=== PATIENT | male | born 1980 | race Caucasian/White ===

== ENCOUNTER 2017-03-11 16:45 | Inpatient (IN) ==
--- NOTE | 2017-03-11 17:16 | Emergency Department Report ---
Weakness HPI - General Chief complaint: Weakness Stated complaint: weakness,not eating/drinking Time Seen by Provider: 03/11/17 16:46 Source: patient, RN notes reviewed Mode of arrival: wheelchair Limitations: no limitations - History of Present Illness HPI Narrative: 36yo man presents to the ER for evaluation of 'weakness'. Pt states that he got 'the crud' two weeks ago. Since then, he has had trouble recovering. He had an appointment with his PCM today, but "I didn't think I could make it". Pt fell on the steps of his home and brother and MOP helped pt into his truck. Pt then drove himself to the ER. Pt c/o KURTZ, nausea, congestion, rhinorrhea, fatigue, loose stools, etc for the last 2 weeks. He has not sought treatment for this, and he has not taken any medications to treat his sx. MD Complaint: generalized weakness Onset (ago): week(s) (2) Duration: constant Location: generalized Migration: none Severity: severe Relieving factors: none Exacerbating factors: movement, exertion Context: recent illness Associated symptoms: diaphoresis, fever/chills, headaches, loss of appetite, nausea/vomiting, myalgias, rash, shortness of breath - Related Data Home Medications Medication Instructions Recorded Confirmed Prilosec (Omeprazole) 20 mg 20 mg PO DAILY cap 11/14/16 03/11/17 capsule,delayed release Aspirin Chewable [ASA] 81 mg PO BID 03/11/17 03/11/17 Lisinopril [Prinivil] 20 mg PO DAILY 03/11/17 03/11/17 Losartan [Cozaar] 50 mg PO DAILY 03/11/17 03/11/17 Previous Rx's Medication Instructions Recorded Klor-Con M20 (potassium chloride 20 meq PO BID #60 tab 12/17/16 ER) 20 mEq tablet,(part/cryst) Lasix (Furosemide) 80 mg tablet 80 mg PO QAM #30 tab 12/17/16 Maxzide-25mg (triamterene 37.5 0.5 tab PO DAILY #30 tab 12/17/16 mg-hydrochlorothiazide 25 mg) tablet levothyroxine 50 mcg tablet 50 mcg PO DAILY #30 tab 02/14/17 Allergies Allergy/AdvReac Type Severity Reaction Status Date / Time Penicillins Allergy Severe Rash Verified 03/11/17 18:19 silver sulfadiazine Allergy Severe Blister Verified 03/11/17 18:19 vancomycin Allergy Intermediate RASH Verified 03/11/17 18:19 Sulfa (Sulfonamide Allergy Mild RASH Verified 03/11/17 18:19 Antibiotics) Review of Systems All systems: reviewed and negative except as stated Constitutional: Reports: as per HPI, weakness. Denies: fever, chills, weight change, night sweats Cardiovascular: Reports: as per HPI, dyspnea on exertion. Denies: chest pain, palpitations, orthopnea, edema, syncope, paroxysmal nocturnal dyspnea Respiratory: Reports: as per HPI, cough, dyspnea. Denies: wheezes, hemoptysis, stridor Gastrointestinal: Reports: as per HPI, abdominal pain, nausea, diarrhea. Denies : vomiting, constipation, hematemesis, melena, hematochezia [facility] Patient Stated Medical History Other HEENT Yes: GLASSES Hypertension Yes Other Behavioral Health Yes: [facility] Medical History (Last Updated 11/12/16 @ 09:35 by RON Fierro) Hx of bronchitis (Chronic Medical) 1996 Medical History Updates: HTN (hypertension). Obesity. Psoriasis. Edema extremities. Allergic rhinitis. GERD (gastroesophageal reflux disease). Candidiasis Surgical History: Esophagus widened - 1980 Family History: Family History (Last Updated 11/12/16 @ 09:37 by RON Fierro) Father Obesity Mother No known health problems - Social History Smoking status: Current every day smoker Physical Exam - Limitations Limitations: no limitations - General General appearance: alert, in no apparent distress, obese (Morbid) - Head Head exam: atraumatic, normocephalic, normal inspection - Eye Eye exam: Present: normal appearance, PERRL, EOMI. Absent: scleral icterus - ENT ENT exam: Present: normal exam, normal oropharynx, mucous membranes moist, normal external ear exam - Neck Neck exam: Present: normal inspection, full ROM, trachea midline. Absent: tenderness, lymphadenopathy - Chest Chest inspection: Present: normal inspection, symmetric chest wall rise. Absent : tenderness, rash - Respiratory Respiratory exam: Present: normal lung sounds bilaterally. Absent: respiratory distress, wheezes, prolonged expiratory phase, crackles - Cardiovascular Cardiovascular exam: Present: regular rate, normal rhythm, normal heart sounds, +S1, +S2. Absent: systolic murmur, diastolic murmur, +S3, +S4 - Abdominal Exam Abdominal exam: Present: soft, normal bowel sounds. Absent: distention, tenderness, guarding, rebound, psoas sign, obturator sign, heel tap sign, Kahn 's sign, Rovsing's sign, tenderness at McBurney's Point, hernia - Extremities Exam Extremities exam: Present: normal inspection, full ROM, normal capillary refill. Absent: tenderness, pedal edema, joint swelling, calf tenderness - Skin Skin exam: Present: warm, dry, intact, rash (Psoriasis) - Neurological Exam Neurological exam: Present: alert, oriented X3, CN II-XII intact, reflexes normal. Absent: normal gait, motor sensory deficit - Psychiatric Psychiatric exam: Present: flat affect Course - Consultations Consultation #1: Dr. Rodarte: Order ABG and mag. Pt can go to the floor. Have NRS call when ABG and mag are resulted. Will give orders at that time. Cont fluids! Vital Signs Temperature 97.8 F 03/11/17 16:50 Pulse Rate 81 03/11/17 16:50 Respiratory Rate 20 03/11/17 16:50 Blood Pressure 133/83 03/11/17 16:50 Pulse Oximetry 95 03/11/17 16:50 Temperature 97.8 F 03/11/17 16:50 Pulse Rate 81 03/11/17 18:27 Respiratory Rate 20 03/11/17 16:50 Blood Pressure 133/83 03/11/17 16:50 Pulse Oximetry 95 03/11/17 16:50 Weakness - Differential Diagnosis Differential diagnosis: Likely: acute myocardial infarction, anemia, hypoglycemia, hypothyroidism, rhabdomyolysis, sepsis, dehydration - Medical Records Attestation: I reviewed the patient's medical records. - Lab Data Attestation: I reviewed the patient's lab results. Result diagrams: 03/11/17 17:27 03/11/17 17:27 Lab Results 03/11/17 03/11/17 03/11/17 Range/Units 17:27 17:27 17:27 WBC 9.6 (4.5-11.0) T/MM3 RBC 4.96 (4.50-5.90) M/MM3 Hgb 15.0 (13.5-17.5) GM/DL Hct 44.6 (41-53) % MCV 89.9 (80-100) UM3 MCH 30.2 (26-34) UUG MCHC 33.6 (31-37) GM/DL RDW Std Deviation 40.8 (36.9-50.2) FL Plt Count 197 (130-400) T/MM3 MPV 12.7 H (9.4-12.4) UM3 Immature Gran % (Auto) 0.9 H (0.0-0.5) % Neut % (Auto) 73.2 H (33-66) % Lymph % (Auto) 15.0 L (23-45) % [place] % (Auto) 8.7 (0-9.0) % Eos % (Auto) 1.6 (0-4) % Baso % (Auto) 0.6 (0-2) % Neut # (Auto) 7.1 (1.8-7.7) T/MM3 Lymph # (Auto) 1.5 (1-4.8) T/MM3 [place] # (Auto) 0.8 (0-0.8) T/MM3 Eos # (Auto) 0.2 (0-0.5) T/MM3 Baso # (Auto) 0.1 (0-0.2) T/MM3 Abs Immat Gran (auto) 0.09 H (0.00-0.03) T/MM3 D-Dimer 202 (0-230) NG/ML Turbidity < 20 (0-20) Sodium 125 L (134-144) MEQ/L Potassium 4.3 (3.6-5) MEQ/L Chloride 85 L (98-107) MEQ/L Carbon Dioxide 27 (22-30) MEQ/L Anion Gap 13 (5-15) MEQ/L BUN 24.0 H (9-20) MG/DL Creatinine 1.1 (0.8-1.5) MG/DL GFR Calculation 76 BUN/Creatinine Ratio 22 (6-26) RATIO Glucose 785 H* (75-110) MG/DL Calculated Osmolality 284 H (261-280) MOSM/KG Calcium 9.5 (8.4-10.2) MG/DL Total Bilirubin 1.40 H (0.20-1.30) MG/DL Icterus Index < 2 (0-7) AST 29 (17-59) U/L ALT 58 (21-72) U/L Alkaline Phosphatase 135 H (38-126) U/L Creatine Kinase 106 (55-170) U/L Troponin I 0.015 (0-0.12) ng/ml B-Natriuretic Peptide 165 (0-175) pg/mL Total Protein 7.7 (6.3-8.2) G/DL Albumin 4.1 (3.5-5.0) G/DL Globulin 3.6 (2.4-3.6) G/DL Albumin/Globulin Ratio 1.1 (1.1-2.2) RATIO Plasma Lactate 2.4 H (0.6-2.2) MMOL/L Specimen Hemolysis < 15 (0-25) - Radiology Data Attestation: I reviewed the patient's radiology results. - EKG Data EKG #1 EKG attestation: Yes: I reviewed and interpreted this EKG. EKG shows normal: sinus rhythm, axis, intervals, QRS complexes, ST-T waves Rate: normal Voltage: decreased voltage throughout Disposition Clinical Impression: Hyperglycemia Disposition: 02 To [facility] Print Language: Polish Condition: Improved Prescriptions: No Action Losartan [Cozaar] 50 mg PO DAILY Aspirin Chewable [ASA] 81 mg PO BID Lisinopril [Prinivil] 20 mg PO DAILY Prilosec (Omeprazole) 20 mg capsule,delayed release 20 mg PO DAILY cap Maxzide-25mg (triamterene 37.5 mg-hydrochlorothiazide 25 mg) tablet 0.5 tab PO DAILY #30 tab Klor-Con M20 (potassium chloride ER) 20 mEq tablet,(part/cryst) 20 meq PO BID #60 tab Lasix (Furosemide) 80 mg tablet 80 mg PO QAM #30 tab levothyroxine 50 mcg tablet 50 mcg PO DAILY #30 tab Time of Disposition: 18:43 - Seen By: physician
[2017-03-11] MEDS ORDERED: NS 1,000 ML IV ONE (17:50)
--- OUTSIDE RECORDS SUMMARY | 2017-03-11 18:04 | External Medical Summary | Referral Summary ---
:1980 Author Organization [facility] Address [address] [place] [address] [place] [id number] Encounter [facility] [id number] Date(s): 08/10/14 - 08/10/14 [facility], [address] [place] [address] [place] Discharge Disposition: 01-Home or Self Care Attending Physician: Dave Benavides MD Admitting Physician: Dave Benavides MD Vital Signs No data available for this section Problem List No data available for this section Allergies, Adverse Reactions, Alerts No data available for this section Medications No data available for this section Results No data available for this section Immunizations No data available for this section Procedures No data available for this section Social History No data available for this section Assessment and Plan No data available for this section
[2017-03-11] MEDS: SALINE FLUSH 10ml SYRINGE IVF PRN (18:19)
[2017-03-11] MEDS ORDERED: INSULIN REGULAR, HUMAN 100 UNIT/ML INJECTION IVP ONE (18:23)
[2017-03-11] MEDS ORDERED: INSULIN REGULAR, HUMAN 100 UNIT in NS 100 ML IV PRN (18:23)
[2017-03-11] MEDS ORDERED: PNEUMOCOCCAL VAC ADMIN CHARGE INJ ONE (18:41)
[2017-03-11] MEDS ORDERED: INFLUENZA VAC. INJ. ADMIN CHARGE INJ ONE (18:41)
[2017-03-11] MEDS: NS 1,000 ML IV SCH ×2 (19:57→23:56)
[2017-03-11] MEDS: INSULIN ASPART 100unit/ml INJECTION SQ SCH (22:19)
[2017-03-11] MEDS: INSULIN GLARGINE 100unit/ml INJECTION SQ SCH (22:19)
[2017-03-12] MEDS: NS 1,000 ML IV SCH ×5 (04:23→22:43)
[2017-03-12] MEDS: KETOROLAC 15 MG/ML INJECTION IVP PRN ×2 (09:28→16:02)
[2017-03-12] MEDS: INSULIN GLARGINE 100unit/ml INJECTION SQ SCH ×2 (09:28→22:37)
--- NOTE | 2017-03-12 12:11 | General Surgery Consult Note ---
Consult date: 03/12/17 Attending Physician: Ephraim Rodarte MD Reason for consult: wound care [facility] Patient Stated Medical History DM Other HEENT Yes: GLASSES Hypertension Yes MRSA Yes Other Infectious Yes: Staph infection in leg Other [facility]al [facility] Yes: [facility] Medical History (Last Updated 11/12/16 @ 09:35 by RON Fierro) Hx of bronchitis (Chronic Medical) 1996 Medical History Updates: DM. HTN (hypertension). Obesity. Psoriasis. Edema extremities. Allergic rhinitis. GERD (gastroesophageal reflux disease). Candidiasis Surgical History: Esophagus widened - 1980 Family History: Family History (Last Updated 11/12/16 @ 09:37 by RON Fierro) Father Obesity Mother No known health problems - Social History Smoking status: Current every day smoker Housing: house (mother helps him) Household members: none (single) Current occupational status: unemployed ("disabled") Medications Home Medications Medication Instructions Recorded Confirmed Type Prilosec (Omeprazole) 20 mg 20 mg PO DAILY cap 11/14/16 03/11/17 History capsule,delayed release Aspirin Chewable [ASA] 81 mg PO BID 03/11/17 03/11/17 History Lisinopril [Prinivil] 20 mg PO DAILY 03/11/17 03/11/17 History Losartan [Cozaar] 50 mg PO DAILY 03/11/17 03/11/17 History Allergies Allergy/AdvReac Type Severity Reaction Status Date / Time Penicillins Allergy Severe Rash Verified 03/11/17 18:19 silver sulfadiazine Allergy Severe Blister Verified 03/11/17 18:19 vancomycin Allergy Intermediate RASH Verified 03/11/17 18:19 Sulfa (Sulfonamide Allergy Mild RASH Verified 03/11/17 18:19 Antibiotics) Review of Systems 10-point ROS: negative except for HPI and the following: - General General: Present: fever (during the last 2 weeks), chills, other (fatigue.) - Eyes/Ears/Nose/Throat Ear Nose Throat: Present: other (congestion) - Gastrointestinal Gastrointestinal: Present: nausea, diarrhea - Neurological Neurological: Present: muscle weakness, other (headache) - Endocrine Endocrine: Present: diabetes (he states this is a new diagnosis he was not aware of earlier), thyroid problems - Vital Signs Last Vital Signs Temp 97.8 F 03/12/17 09:00 Pulse 60 03/12/17 09:00 Resp 20 03/12/17 09:00 BP 133/65 03/12/17 09:00 Pulse Ox 92 03/12/17 09:00 - Laboratory Result Diagrams: 03/11/17 17:27 03/12/17 18:27 General Surgery Results - Results Labs: 03/12/17 08:52 Hospital Course Summary Disclaimer: The visit summary below is not to be considered part of the above Progress Note.
[2017-03-12] MEDS ORDERED: INFLUENZA VAC QIV 2017-18 (Fluarix*)(>=3yo) 0.5ml IM ONE (14:42)
[2017-03-12] MEDS ORDERED: PNEUMOCOCCAL 13 VACCINE 0.5ml INJECTION IM ONE (14:42)
--- NOTE | 2017-03-12 15:52 | Wound Care Progress Note ---
Wound Center Progress Note: Contacted staff, pt is referred to Dr. Esposito for a consult.
[2017-03-12] MEDS: INSULIN ASPART 100unit/ml INJECTION SQ SCH (18:02)
--- NOTE | 2017-03-12 18:16 | History and Physical ---
HPI Patient is a 36-year-old male who presented to [facility] ER on 03/11 with a chief complaint of an approximately two-week history of weakness that was progressively getting worse to the point that yesterday he could not move. In addition, over the last couple of weeks he has been having some increased urination as well as increased thirst and desire to drink more water. He is also having some numbness involving his entire abdomen. He was scheduled to see us in the office yesterday. He canceled that because he was so weak and he went straight to the emergency room for further evaluation and recommendations. His blood sugar in the emergency room was 785 with a sodium of 125. Total bilirubin 1.40, magnesium 2.4, alkaline phosphatase 135. The patient had a plasma lactate that was high at 2.4 as well. His UA was unremarkable other than 3+ glucose. No ketones. REVIEW OF SYSTEMS Denies chest pain, orthopnea, PND, hematochezia, melena. Denies TIA or seizure symptoms. He does complain of pain involving the right thigh. PAST MEDICAL HISTORY 1. Hypertension. 2. Obesity. 3. Psoriasis. 4. Chronic lower extremity edema. 5. Allergic rhinitis. 6. Pulmonary embolism. 7. GERD. 8. Candidiasis. 9. Hypokalemia. FAMILY HISTORY Not relevant to this admission. ALLERGIES Penicillin. Silver sulfadiazine. Vancomycin. REVIEW OF SYSTEMS As per HPI. CURRENT MEDICATIONS Prilosec 20 mg one tablet daily. Aspirin 81 mg p.o. b.i.d. Lisinopril 20 mg one tablet daily. Losartan 50 mg one tablet daily. Potassium 20 mEq p.o. b.i.d. Lasix 80 mg p.o. q.a.m. Maxzide 25/37.5 mg one tablet daily. Levothyroxine 50 mcg one tablet daily. PHYSICAL EXAM VITAL SIGNS: Blood pressure 109/75, pulse 66, temperature 96.3, oxygen saturation 95% on room air. GENERAL: The patient looks comfortable at this time. HEENT: Unremarkable. NECK: Supple. CHEST: Lungs are clear to auscultation bilaterally. CARDIOVASCULAR: Regular rate and rhythm. ABDOMEN: Soft, nontender. No organomegaly. EXTREMITIES: No cyanosis or clubbing. He does have chronic lower extremity edema. The patient is mildly tender to palpation at the right thigh. LABORATORY Sodium 125, potassium 4.3, CO2 27, creatinine 1.1, BUN 24, blood sugar 785, calculated osmolality 284, magnesium 2.4, calcium 9.5. Total bilirubin 1.40. AST and ALT are normal. Alkaline phosphatase 135. Plasma lactate 2.4. Troponin I normal. BNP normal. CBC essentially unremarkable. Hemoglobin 15.0, WBC 9.0. ASSESSMENT 1. Newly diagnosed diabetes mellitus. Type is not clear at this time. 2. Severe hyperglycemia without evidence of DKA. This is due to #1 above. 3. Polydipsia and polyuria due to #1 above. 4. Morbid obesity. 5. Hypertension by history. PLAN Patient received IV insulin drip in the emergency room. Stop upon coming to the medical floor. Will have full diabetic education. Recheck blood sugar four times a day. Started patient on NovoLog t.i.d. as well as Lantus b.i.d. Continue IV fluids. Follow up BMP in the morning. Resume home medications. MTDD
[2017-03-12 18:45] VITALS: RESP 18
[2017-03-12] MEDS ORDERED: INSULIN ASPART 100unit/ml INJECTION SQ ONE (19:03)
--- NOTE | 2017-03-12 20:32 | Consultation ---
DATE OF CONSULTATION 03/12/2017 FINDINGS Mr. Estrada is a 36-year-old gentleman whom I was asked to see today as a result of a wound involving his left buttocks region as well as a wound involving his left inguinal region. Patient informs me that I have "seen him" a few years ago as a result of wounds at that time. Patient unfortunately suffers from morbid obesity. He still lives at home. He informs me that care is provided through his mother and sister. The patient apparently had been experiencing increasing weakness and fatigue. He was also complaining of a component of increasing urination and increasing thirst. He presented to our emergency room facility and was found to have a blood sugar of 785. Sodium was 125. The patient was subsequently admitted to our institution for further care. Patient informs me that several weeks ago he began to notice some tenderness within his left inguinal region. He states that he is not able to really "see this area." He then a week or so ago began to notice that there was some drainage coming forth from the left inguinal region. He states that the discomfort has improved after it has "opened and drained." He also informs me that he had formed a small "pimple" upon his left buttocks in the past. The patient stated that this did open and his sister, who is a nurse, has been trying to manage this open wound involving his left buttocks over the course of the last several weeks or more. PAST MEDICAL HISTORY, PAST SURGICAL HISTORY, MEDICATIONS, ALLERGIES, SOCIAL HISTORY, FAMILY HISTORY, REVIEW OF SYSTEMS Performed by my nurse practitioner, Mikel Sanford APRN. PHYSICAL EXAMINATION GENERAL: Mr. Estrada is a 36-year-old morbidly obese gentleman who does not appear to be in acute distress. He was quite conversant and in good spirits. VITAL SIGNS: Temperature 97.8, pulse 78, respirations 18, blood pressure 143/67 , SAO2 90% on room air. HEENT: Normocephalic. Pupils are equally round and react to light and accommodation. CHEST: Clear to auscultation bilaterally. HEART: Regular rate and rhythm. Normal S1 and S2 without gallops, murmurs or clicks. ABDOMEN: Palpation of the abdomen reveals it to be soft and nontender. I do not appreciate any evidence for hepatosplenomegaly nor abnormal masses. BUTTOCKS: Surprisingly, the patient was able to log-roll to his right side without assistance. One could then see a small opening involving the midportion of left buttocks. This open wound was on the order of about 8 mm in diameter. There was some granulation tissue beginning to form. There was some clear drainage coming forth from the wound. There was, however, no evidence for purulence. No evidence for periwound erythema. No evidence for any necrotic tissue within the wound itself. EXTREMITIES: Positive for significant edema. No evidence for clubbing or cyanosis. LEFT INGUINAL REGION: Attention was focused to the area of concern involving the left inguinal region. The patient did have a component of some erythema within the left inguinal region, most likely a result of yeast infection. There was a small opening on the order of 8 mm in diameter within the left inguinal crease. There was some induration around this area but no evidence for fluctuance. A sterile Q-tip was then placed within the open wound and fortunately the wound was fairly shallow and only on the order about 8 mm to 1 cm in depth. NEUROLOGIC: Cranial nerves II-XII grossly intact. Patient without focal motor sensory deficit. LABORATORY/RADIOGRAPHIC EVALUATION The patient's blood sugars have improved since admission but continue to be elevated at 534. CBC obtained yesterday was without marked abnormalities. ASSESSMENT 36-year-old morbidly obese gentleman with newly diagnosed diabetes mellitus. Patient with open wounds involving left inguinal region and left buttocks. PLAN From a wound standpoint, at this time I do not believe there is any need fortunately for excisional surgical debridement. Would recommend placing a small piece of silver rope within the open wound within the left inguinal region followed by a Mepilex dressing. We would recommend applying Nystatin powder to inguinal creases given his physical findings. Would recommend placing Silver Aquacel overlying the wound involving left buttocks followed by a Mepilex dressing. Dressing orders will be placed in the computer/EMR accordingly. Will continue to follow along from a wound standpoint during the patient's hospitalization. BULMARO
[2017-03-13] MEDS: KETOROLAC 15 MG/ML INJECTION IVP PRN ×2 (03:10→11:02)
[2017-03-13] MEDS: SALINE FLUSH 10ml SYRINGE IVF PRN ×2 (03:11→11:03)
[2017-03-13] MEDS ORDERED: ACETAMINOPHEN 325 MG TABLET PO PRN (03:41)
[2017-03-13] MEDS: INSULIN GLARGINE 100unit/ml INJECTION SQ SCH (08:00)
[2017-03-13 08:18] VITALS: BP 143/73; TEMP 96.3; O2SAT 91
--- NOTE | 2017-03-13 13:01 | Progress Note ---
DATE 03/13/2017 SUBJECTIVE Patient is lying in bed in room 146 on the medical floor at [facility] this afternoon when I saw him. He doesn't have any specific complaints. He is motivated to do his best with the new diagnosis of new-onset diabetes mellitus. He is awaiting the nurse educator for further evaluation today. He is willing and stable to go home today. PHYSICAL EXAM VITAL SIGNS: Blood pressure 142/73, pulse 70, temperature 96.3, respirations 18 , oxygen saturation 91% on oxygen at 2 L/nasal cannula. GENERAL: The patient looks comfortable and is cheerful. NECK: Supple. CHEST: Lungs are clear. CARDIOVASCULAR: Regular rate and rhythm. ABDOMEN: Soft. EXTREMITIES: Edema is noted which is chronic in nature. LABORATORY Potassium 3.8, sodium 134. Blood sugar is 321. It is running between 307 to 444. Liver function tests remain normal. ASSESSMENT 1. Newly diagnosed diabetes mellitus. 2. Severe hyperglycemia without evidence of DKA. 3. Polydipsia, polyuria due to #1. 4. Generalized paresthesias - improving with managing patient's sugar at this time. 5. Morbid obesity. 6. Hypertension. 7. Left groin wound infection under the care of Dr. Esposito as well as the wound care team. 8. Right thigh pain - resolved with one dose of Toradol. PLAN Dismiss patient to home today. However, I am going to hold off until we have the carpenter/labor and diabetic education completed and are comfortable patient can administer his own insulin at home. BULMARO
[2017-03-13 15:12] VITALS: BMI 15.9
[2017-03-13 17:19] VITALS: PULSE 71
[2017-03-13] MEDS: INSULIN ASPART 100unit/ml INJECTION SQ SCH (18:46)
[2017-03-14] MEDS: INSULIN GLARGINE 100unit/ml INJECTION SQ SCH (00:04)
--- NOTE | 2017-03-14 16:59 | Discharge Summary ---
FINAL DIAGNOSES 1. Newly diagnosed diabetes mellitus. 2. Severe hyperglycemia due to #1. 3. Polydipsia, polyuria due to #1. 4. Diffuse paresthesias, probably related to #1 as this has improved or resolved since treating the severe hyperglycemia. 5. Morbid obesity. 6. Hypertension. 7. Chronic lower extremity edema. 8. Pseudohyponatremia due to hyperglycemia. REASON FOR ADMISSION The patient is a 36-year-old male who presented to [facility] ER on 03/11/2017 with a chief complaint of an approximately two-week history of weakness that was progressively getting worse to the point that yesterday he could not move. In addition, over the last couple of weeks he had been having some increased urination as well as increased thirst and desire to drink more water. He was also having some numbness involving his entire abdomen. He was scheduled to see us in the office on the day of admission but he canceled that because he was so weak. He went straight to the emergency room for further evaluation and recommendations. In the emergency room, his blood sugar was 785 with sodium 125. Total bilirubin was 1.40, magnesium 2.4, alkaline phosphatase 135, plasma lactate 2.4. UA was unremarkable other than 3+ glucose and ketones. ABG was normal. 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 PHYSICAL EXAM VITAL SIGNS: Blood pressure 109/75, pulse 66, respirations 22. GENERAL: The patient looks comfortable. Exam was essentially unremarkable other than chronic lower extremity edema as well as mild tenderness to palpation at the right thigh. LABORATORY Sodium 125, potassium 4.3, CO2 27, creatinine 1.1, BUN 24, blood sugar 785, calculated osmolality 284, magnesium 2.4, calcium 9.5. Total bilirubin 1.40. AST and ALT were normal. Alkaline phosphatase was slightly elevated at 135. Plasma lactate was 2.4. Troponin I normal. BNP was normal. CBC was unremarkable. HOSPITAL COURSE This patient was admitted to the medical floor under the care of Dr. Ephraim Rodarte. The patient initially was started on IV insulin drip. This was discontinued upon arrival to the medical floor. We started the patient on Lantus 10 units b.i.d. with NovoLog 10 units t.i.d. with each meal. This was helpful. Blood sugar was improving. This was gradually titrated up to 14 units of Lantus b.i.d. as well as 10 units a.c. meals for now. Want to avoid hyperglycemia in light of patient's blood sugar being high. No evidence of DKA at this time. The patient has completed diabetic education as well as the supervisor sewer maintenance saw him. Recommendations were provided. The patient was excited about a "new adventure." He is motivated to get this under control. He was seen by Dr. Esposito, wound care, due to a lesion at his left groin. It was Dr. Esposito's opinion that the patient does not need any surgical intervention at this time. Daily home dressing instructions were provided by the wound care team to the patient. Followup with them has not been established and he probably will need to follow with them in one to two weeks. DISCHARGE MEDICATIONS 1. Tylenol 325 mg one tablet q.4h. p.r.n. 2. NovoLog 10 units a.c. meals. 3. Nystatin powder application b.i.d. 4. Lantus 14 units subcutaneously b.i.d. 5. Aspirin 81 mg p.o. b.i.d. 6. Prilosec 20 mg one tablet daily. 7. Lisinopril 20 mg one tablet daily. 8. Maxzide 37.5/25 mg one-half tablet daily. 9. Levothyroxine 50 mcg one tablet daily. 10. Cozaar 50 mg tablet daily. 11. Potassium 20 mEq one tablet p.o. b.i.d. 12. Lasix 80 mg one tablet q.a.m. DISCHARGE DIET: ADA 2200 F/U Follow up with Dr. Ephraim Rodarte in one week. Follow up with wound care team as they recommended. MTDD
== END 2017-03-13 20:15 | disposition home or self-care (01) | DRG 638 ==
LOC: ED 16:45 → MED 16:45
PROVIDERS: ADMIT Family Medicine; ATTEND Family Medicine

== ENCOUNTER 2017-03-16 18:07 | Inpatient (IN) ==
--- NOTE | 2017-03-16 18:54 | Emergency Department Report ---
Wound/Laceration HPI - General Chief Complaint: Wound/Laceration Stated Complaint: infected wound on groin Time Seen by Provider: 03/16/17 18:53 Source: patient - History of Present Illness HPI narrative: 37 YO M presents to ED with complaint of increased swelling, increased redness and pain in groin since yesterday. Patient was seen while in the hosptial this past week for groin wound by Dr. Esposito. Wound was packed and patient is to follow with Dr. Esposito in the wound care clinic. Patient says he had a fever today of 100. - Related Data Home Medications Medication Instructions Recorded Confirmed Aspirin Chewable [ASA] 81 mg PO BID 03/11/17 03/16/17 Insulin Aspart [NovoLOG] 10 unit SQ TIDWM 03/16/17 03/16/17 Omeprazole [Prilosec] 20 mg PO DAILY PRN 03/16/17 03/16/17 Previous Rx's Medication Instructions Recorded Acetaminophen [Tylenol] 325 mg PO Q5H PRN tab 03/13/17 Cozaar (losartan) 50 mg tablet 50 mg PO DAILY #30 tab 03/13/17 Insulin Glargine,Hum.rec.anlog 14 unit SQ BID vial 03/13/17 [Lantus] Klor-Con M20 (potassium chloride 20 meq PO BID #60 tab 03/13/17 ER) 20 mEq tablet,(part/cryst) Lasix (Furosemide) 80 mg tablet 80 mg PO QAM #30 tab 03/13/17 Maxzide-25mg (triamterene 37.5 0.5 tab PO DAILY #30 tab 03/13/17 mg-hydrochlorothiazide 25 mg) tablet levothyroxine 50 mcg tablet 50 mcg PO DAILY #30 tab 03/13/17 lisinopril 20 mg tablet 20 mg PO DAILY #30 tab 03/13/17 Clindamycin Pb [Cleocin Premix] 900 mg IV Q8H bag 03/17/17 Glucose Oral Gel 40% [Glutose 15] 37.5 gm PO PRN PRN tube 03/17/17 Hydrocodone/APAP 5/325 [Strum 1 tab PO Q6H PRN tab 03/17/17 5/325] Ibuprofen [Motrin] 600 mg PO Q6H PRN tab 03/17/17 Ondansetron Inj [Zofran] 4 mg IVP Q6H PRN vial 03/17/17 Saline Flush [IV Flush] 10 - 80 ml IVF PRN PRN syringe 03/17/17 Allergies Allergy/AdvReac Type Severity Reaction Status Date / Time Penicillins Allergy Severe Rash Verified 03/25/17 06:04 silver sulfadiazine Allergy Severe Blister Verified 03/25/17 06:04 vancomycin Allergy Intermediate RASH Verified 03/25/17 06:04 Sulfa (Sulfonamide Allergy Mild RASH Verified 03/25/17 06:04 Antibiotics) Physical Exam - General Limitations: no limitations General appearance: alert, obese - Head Head exam: normocephalic - Eye Eye exam: Present: EOMI - Neck Neck exam: Present: full ROM - Respiratory Respiratory exam: Present: normal lung sounds bilaterally - Cardiovascular Cardiovascular exam: Present: regular rate, normal rhythm - Abdominal Exam Abdominal exam: Present: other (see below) - Neurological Exam Neurological exam: Present: alert, oriented X3 - Skin Skin exam: Absent: diaphoresis, pallor, mottled - Other Other exam information: Indurated area with erythema from right and left groin extending in to scrotum and under scrotum. Wound in left groin has greenish-yellow foul smelling discharge with packing in place. Course - Consultations Consultation #1: I discussed patient's HPI, PMH, labs, CT scan, VS and exam findings with Dr. Gonzalez. Dr. Gonzalez will consult. Would like patient admitted under hospitalist service and due to micro report given Zosyn IV. Patient has penicillin allergy but it is not a type I allergy. He would also like packing replaced. Consultation #2: I discussed patients HPI, PMH, labs, CT scan, VS, exam findings and conversation I had with Dr. Gonzalez with Dr. Nicole. Dr. Nicole will admit patient. Vital Signs Temperature 98.2 F 03/16/17 18:31 Pulse Rate 86 03/16/17 18:31 Respiratory Rate 28 H 03/16/17 18:31 Blood Pressure 140/56 H 03/16/17 18:31 Pulse Oximetry 95 03/16/17 18:31 Temperature 98.2 F 03/26/17 15:53 Pulse Rate 67 03/26/17 15:53 Respiratory Rate 20 03/26/17 15:53 Blood Pressure 145/73 H 03/26/17 15:53 Pulse Oximetry 95 03/26/17 15:53 Wound/Laceration - [facility] Narrative Medical decision making narrative: Dr. Ashraf asked to examine patient. WBC 16.1 with 4% bands Lactate 2.4 IV clindamycin order when sepsis recognized. Packing removed, approx 1 cm from wound in left groin. No obvious drainage appreciated. New packing placed in wound. I discussed exam labs, CT results and conversation I had with Dr. Gonzalez with patient and answered his question. Patient agrees to hospital admission. Differential. Dx. Sepsis. Wound infection, Cellulitis, Viral Illness - Medical Records Attestation: I reviewed the patient's medical records. - Lab Data Attestation: I reviewed the patient's lab results. Result diagrams: 03/26/17 03:58 03/26/17 03:58 Lab Results 03/16/17 03/16/17 03/16/17 Range/Units 20:05 20:05 20:06 WBC 16.1 H (4.5-11.0) T/MM3 RBC 4.84 (4.50-5.90) M/MM3 Hgb 14.4 (13.5-17.5) GM/DL Hct 45.5 (41-53) % MCV 94.0 (80-100) UM3 MCH 29.8 (26-34) UUG MCHC 31.6 (31-37) GM/DL RDW Std Deviation 44.0 (36.9-50.2) FL Plt Count 213 (130-400) T/MM3 MPV 12.2 (9.4-12.4) UM3 Immature Gran % (Auto) Not performed Neut % (Auto) Not performed Lymph % (Auto) Not performed [place] % (Auto) Not performed Eos % (Auto) Not performed Baso % (Auto) Not performed Neut # (Auto) Not performed Lymph # (Auto) Not performed [place] # (Auto) Not performed Eos # (Auto) Not performed Baso # (Auto) Not performed Abs Immat Gran (auto) Not performed Neutrophils % (Manual) 81.0 H (33-66) % Band Neutrophils % 4.0 (0-6) % Lymphocytes % (Manual) 6.0 L (23-45) % Monocytes % (Manual) 9.0 (0-9.0) % Neutrophils # (Manual) 13.0 H (1.8-7.7) T/MM3 Band Neutrophils # 0.6 T/MM3 Lymphocytes # (Manual) 1.0 (1-4.8) T/MM3 Monocytes # (Manual) 1.4 H (0-0.8) T/MM3 RBC Morph Comment Normal Turbidity < 20 (0-20) Sodium 133 L (134-144) MEQ/L Potassium 3.9 (3.6-5) MEQ/L Chloride 95 L (98-107) MEQ/L Carbon Dioxide 28 (22-30) MEQ/L Anion Gap 10 (5-15) MEQ/L BUN 14.0 (9-20) MG/DL Creatinine 1.0 (0.8-1.5) MG/DL GFR Calculation 84 BUN/Creatinine Ratio 14 (6-26) RATIO Glucose 408 H (75-110) MG/DL Calculated Osmolality 274 (261-280) MOSM/KG Calcium 9.1 (8.4-10.2) MG/DL Total Bilirubin 0.80 (0.20-1.30) MG/DL Icterus Index < 2 (0-7) AST 22 (17-59) U/L ALT 37 (21-72) U/L Alkaline Phosphatase 126 (38-126) U/L Total Protein 7.8 (6.3-8.2) G/DL Albumin 3.8 (3.5-5.0) G/DL Globulin 4.0 H (2.4-3.6) G/DL Albumin/Globulin Ratio 1.0 L (1.1-2.2) RATIO Plasma Lactate 2.3 H (0.6-2.2) MMOL/L Procalcitonin 0.30 NG/ML Specimen Hemolysis < 15 (0-25) - Radiology Data Attestation: I reviewed the patient's radiology results. Disposition Clinical Impression: Sepsis Qualifiers: Sepsis type: sepsis due to unspecified organism Qualified Code(s): A41.9 - Sepsis, unspecified organism Cellulitis Qualifiers: Site of cellulitis: other site Qualified Code(s): L03.818 - Cellulitis of other sites [place] [facility] [place] Condition: Stable - Seen By: midlevel and physician
[2017-03-16] MEDS: SALINE FLUSH 10ml SYRINGE IVF PRN ×2 (19:28→20:06)
[2017-03-16] MEDS ORDERED: MORPHINE SULFATE 4mg INJECTION IVP ONE ×2 (19:48→23:31)
[2017-03-16] MEDS ORDERED: NS 1,000 ML IV ONE (20:26)
[2017-03-16] MEDS ORDERED: NS 100 ML ONE (20:46)
[2017-03-16] MEDS ORDERED: IOHEXOL 300mg/ml 100ml INJECTION ONE (20:46)
[2017-03-16] MEDS ORDERED: SALINE FLUSH 10ml SYRINGE ONE (20:46)
[2017-03-16] MEDS: CLINDAMYCIN PB 900 MG/50 ML BAG IV SCH (21:12)
[2017-03-16] MEDS ORDERED: HYDROMORPHONE 2 MG/ML INJECTION IVP PRN (23:36)
[2017-03-16] MEDS ORDERED: GLUCOSE ORAL GEL 40% 37.5gm PO PRN (23:36)
[2017-03-16] MEDS ORDERED: ONDANSETRON 4 MG/2 ML INJECTION IVP PRN (23:36)
--- NOTE | 2017-03-17 00:40 | History & Physical Report ---
History of Present Illness Date: 03/17/17 Chief complaint: groin infection HPI: 37 YO M with DX of new onset IDDM and hospital stay this week, presented to ED with complaint of increased swelling, increased redness and pain in groin since yesterday. Patient was seen while in the hospital this past week for groin wound by Dr. Esposito. Wound was packed and patient is to follow with Dr. Esposito in the wound care clinic. Patient reports he has had increasing fevers since and that the abscess in his groin has grown from golf ball to tennis balll size. He reports multiple abscesses in the past, he feels it is a chronic problem for him. He was admitted for possible I&D and continued management. Review of Systems All systems PM: 10-point ROS was reviewed, no additional remarkable complaints except Past Medical History Patient Stated Medical History Other HEENT Yes: GLASSES Hypertension Yes Diabetes Mellitus Type 2 Yes MRSA Yes Other Infectious Yes: Staph infection in leg Other Behavioral Health Yes: [facility] Medical History (Last Updated 11/12/16 @ 09:35 by RON Fierro) Hx of bronchitis (Chronic Medical) 1996 Medical History Updates: DM-. HTN (hypertension). Obesity. Psoriasis. Edema extremities. Allergic rhinitis. GERD (gastroesophageal reflux disease). Candidiasis Surgical History: Esophagus widened - 1980 Family History: Family History (Last Updated 11/12/16 @ 09:37 by RON Fierro) Father Obesity Mother No known health problems Family History Updates: non contributory - Social History Smoking status: Current every day smoker Medications Home Medications Medication Instructions Recorded Confirmed Type Aspirin Chewable [ASA] 81 mg PO BID 03/11/17 03/16/17 History Insulin Aspart [NovoLOG] 10 unit SQ TIDWM 03/16/17 03/16/17 History Omeprazole [Prilosec] 20 mg PO DAILY PRN 03/16/17 03/16/17 History Allergies Allergy/AdvReac Type Severity Reaction Status Date / Time Penicillins Allergy Severe Rash Verified 03/17/17 04:22 silver sulfadiazine Allergy Severe Blister Verified 03/17/17 04:22 vancomycin Allergy Intermediate RASH Verified 03/17/17 04:22 Sulfa (Sulfonamide Allergy Mild RASH Verified 03/17/17 04:22 Antibiotics) Exam Vital Signs: Temperature 98.4 F 03/16/17 20:42 Pulse Rate 83 03/16/17 20:42 Respiratory Rate 20 03/16/17 20:42 Blood Pressure 114/63 03/16/17 20:42 Pulse Oximetry 95 03/16/17 20:42 - Constitutional Present: well nourished, well developed, morbidly obese - Routine HEENT Exam Eye: Present: EOMI ENT: Present: mucous membranes moist, dentition normal - Routine Respiratory Exam Present: CTA bilaterally. Absent: wheezes - Routine Cardiovascular Exam Present: RRR. Absent: murmur - Routine Abdominal Exam Present: soft, normoactive bowel sounds, non distended. Absent: tenderness - Routine Extremities Exam Present: normal capillary refill - Routine Neurological Exam Present: alert, oriented X3, CN II-XII intact - Routine Psychiatric Exam Present: normal affect Results - Labs CBC & Chem 7: 03/17/17 03:44 03/17/17 03:44 Assessment and Plan (1) Groin abscess Current visit: Yes Status: Acute (2) Insulin dependent diabetes mellitus Current visit: Yes Status: Acute (3) Hyperglycemia Current visit: No Status: Acute Assessment and Plan: Patients wound packed in the ED. Surgery to see in AM. Patient started on IV clindamycin. Will start patient on SSI and consisteent carb diet. CX from earlier this week show strep and varghese. Will start IV fluconazole as well. Blood CX ordered in ED. Continue supportive care. Daniel TRAORE: This patient was wrongly put on my list. I did however see the patient and his interview on exam however I did not document such as Dr. Rodarte is here today and is going to see the patient and do the orders. I am signing this to get off my list but please note that I'm not in charge of this patient. DVT Prophylaxis: SCD's Resuscitation Status: Full Code - Physician Narrative Narrative: Date: 03/17/17 Time: 0033 Hospital Course Summary Disclaimer: The visit summary below is not to be considered part of the above Progress No Mr. Estrada is 37 years old male well known to be. The telemedicine physician note was reviewed and appreciated. HPI: 37 years old male with hx of left groin infection of several weeks duration. Recent admission for new onset DM. He was seen during that time by Dr. Esposito in consultation for left groin infection. Surgical intervention was not deemed necessary at that time. He developed fever and chills and wound ius now bigger that last week since yesterday. He was admitted for wound management with IV antibiotics and surgical reconsultation. PMH: HTN, obesity, PE, dyslipdemia, psoarisis, chronic leg edema. FMH: not relevant to this admission. MED: see the MAR. ROS: The 14 points ROS reviewed and discussed and in HPI. ALLERGY: PCN, silver sulfadiazine and vancomycin. PE: General : comfortable, severe obesity, no distress. LUNGS: clear CVS: rrr without murmur. ABDO: Soft NT, BS normactive, no organomegaly. EXT: chronic edema NEURO: grossly intact SKIN: left groin with wound infection and redness ASSESEMENT 1. Left groin cellulitis with abscess. 2. Newly diagnosed DM 3. Severe obesity 4. HTN..chronic 5. Psoarisis......chronic PLAN 1. Started IV clindamycin by telemedine physician last nite. But additing cefazolin IV to RX. 2. Surgical consultation in am. 3. Resume home meds. .
[2017-03-17] MEDS ORDERED: FLUCONAZOLE PB 200 MG/100 ML BAG IV SCH (01:00)
[2017-03-17] MEDS: NS 1,000 ML IV SCH ×2 (01:11→13:30)
[2017-03-17] MEDS: IBUPROFEN 600 MG TABLET PO PRN ×2 (02:54→14:59)
[2017-03-17] MEDS: CLINDAMYCIN PB 900 MG/50 ML BAG IV SCH ×3 (04:05→20:37)
[2017-03-17] MEDS: INSULIN ASPART 100unit/ml INJECTION SQ PRN ×2 (05:44→20:36)
--- NOTE | 2017-03-17 09:09 | CT Scan Report ---
Indication: indurated tissue in groin, scrotum PROCEDURE: CT pelvis w con: Encounter: Initial Comparison: None Technique: Axial CT images were performed through the pelvis after the administration of intravenous contrast. Coronal and sagittal two-dimensional reformats. Automated Exposure Control and Iterative Reconstruction dose reducing techniques were utilized. Contrast: Omnipaque 300 100 mL Findings: Exam is limited due to patient body habitus and attenuation artifact. The visualized portions of the liver and kidneys are grossly normal. Small bowel loops are nondilated. Bladder is grossly normal. No free fluid or free air appreciated. There is inflammation with fluid and tiny foci of gas in the left inguinal region which is incompletely evaluated on this study. This tracks towards the left inguinal canal and scrotum. There is also a small 3 cm area of low-attenuation in the left perineum which is not fully included in the [id number]. There is some presumably reactive adenopathy in the left inguinal area. Bone windows are grossly unremarkable. Impression: Evidence of a left inguinal cellulitis with developing abscesses. Small foci of subcutaneous gas could relate to abscess or prior drainage procedure. Recommend close clinical follow-up to exclude developing Alex's gangrene and short-term repeat CT as indicated. There is a preliminary report by [facility]. .
[2017-03-17] MEDS: NS FLUSH BAG 500ml IV PRN (13:00)
[2017-03-17] MEDS: HYDROCODONE/APAP 5mg/325mg TABLET PO PRN (13:59)
[2017-03-17] MEDS: FLUCONAZOLE PB 200 MG/100 ML BAG IV SCH (14:54)
[2017-03-17] MEDS ORDERED: CEFAZOLIN 1 G in NS 100 ML IV SCH (15:00)
[2017-03-17] MEDS ORDERED: LIDOCAINE 1% (10mg/ml) 30ml SDV INJ INJ ONE (18:05)
[2017-03-17] MEDS: CEFAZOLIN 2 G in NS 100 ML IV SCH ×2 (18:11→22:46)
[2017-03-17] MEDS: INSULIN ASPART 100unit/ml INJECTION SQ SCH (19:09)
[2017-03-17] MEDS: INSULIN GLARGINE 100unit/ml INJECTION SQ SCH (20:36)
[2017-03-18] MEDS: CEFAZOLIN 2 G in NS 100 ML IV SCH ×4 (03:19→22:14)
[2017-03-18] MEDS: CLINDAMYCIN PB 900 MG/50 ML BAG IV SCH ×3 (04:04→20:54)
[2017-03-18] MEDS: HYDROCODONE/APAP 5mg/325mg TABLET PO PRN ×4 (04:44→23:13)
[2017-03-18] MEDS: INSULIN ASPART 100unit/ml INJECTION SQ PRN ×3 (05:43→18:46)
--- NOTE | 2017-03-18 07:58 | Procedure Note ---
DATE OF PROCEDURE 03/17/2017 SURGEON Dave Gonzalez MD PREOPERATIVE DIAGNOSIS Abscess of the left mons pubis. POSTOPERATIVE DIAGNOSIS Subcutaneous abscess of the left mons pubis. PROCEDURE Incision and drainage of the left mons pubis. ANESTHESIA 1% lidocaine. INDICATIONS The patient is a 37-year-old male who was recently diagnosed with diabetes mellitus. He was hospitalized recently for a new diagnosis of diabetes. He had a left groin wound and a left buttock wound but was sent home. He developed worsening cellulitis and was readmitted to the hospital. Evaluation today revealed a new area of fluctuance consistent with abscess of the left mons pubis that seemed to be unrelated to his other wounds. Drainage was recommended to him. FINDINGS There was purulent and bloody drainage from the wound. Final wound measurements measured 1 x 0.5 x 1 cm deep. There was no tunneling or necrotic tissue extending towards any of the other regions of the left groin. DESCRIPTION OF PROCEDURE After informed consent was obtained from the patient, the procedure was performed at the bedside. Time-out procedure was performed and the site had been marked. The skin overlying the abscess was prepped with ChloraPrep. Local was injected into the skin surrounding the midportion of the abscess. A 1 cm incision was made with an 11-blade scalpel. A culture swab was obtained from the drainage that was expressed from the abscess cavity and was sent to the lab for analysis. The area was probed with a hemostat and no tunneling or loculations were noted. There was no significant necrotic tissue. The wound was packed with quarter-inch gauze packing strip. The patient tolerated the procedure well. He remained in his preprocedure state. BULMARO
[2017-03-18] MEDS: INSULIN ASPART 100unit/ml INJECTION SQ SCH ×3 (09:24→18:46)
[2017-03-18] MEDS: INSULIN GLARGINE 100unit/ml INJECTION SQ SCH ×2 (09:24→20:55)
--- NOTE | 2017-03-18 12:48 | Consultation ---
DATE OF CONSULTATION 03/17/2017 CONSULTING PHYSICIAN Dave Gonzalez MD (covering for Dr. Esposito) ATTENDING PHYSICIAN Dr. Rodarte REASON FOR CONSULTATION Wound in the left groin. IMPRESSION 1. Left groin cellulitis. This appears to be a simple cellulitis related to his prior candidal infection and strep growing in the left inguinal crease. 2. Abscess of the left mons pubis related to cellulitis. I do not think this constitutes Alex's gangrene. 3. Morbid obesity with BMI of 71. 4. Newly diagnosed and uncontrolled diabetes mellitus on insulin. 5. Left groin wound without evidence of abscess. 6. Left buttock wound. PLAN 1. I do feel that the abscess of the left mons pubis needs incision and drainage this afternoon. 2. Continue IV antibiotics and IV Diflucan per the medical service. 3. I did not see Nystatin ordered and I will add this to his orders for the groin creases. 4. Dr. Esposito will be returning tomorrow. He was due to see the patient on Saturday in the wound center. HISTORY OF PRESENT ILLNESS Chetan is a 37-year-old male who was recently hospitalized and had a wound consultation by Dr. Esposito last week. He was dismissed from the hospital on 03/13/2017 with the plan to follow up in the wound center on 03/19/2017. The day after going home from the hospital he noticed more swelling in the region of the left groin. On 03/15/2017 he felt like he had swelling that was the shape of the side of a golf ball. He had some pain with movement but no significant symptoms so he continued to observe the area. Yesterday he developed a fever to 100.0 and given the length of time before his clinical appointment he presented to the emergency department. He was evaluated there and was felt to have cellulitis of the left groin warranting hospital admission. I was consulted since Dr. Esposito was unavailable for the weekend. PAST MEDICAL HISTORY, PAST SURGICAL HISTORY, FAMILY HISTORY, SOCIAL HISTORY, ALLERGIES Unchanged from General Surgery consultation on 03/12/2017 by Mikel Sanford APRN. MEDICATIONS See the patient's admission medical reconciliation. He is currently on cefazolin, Cleocin, and Diflucan. REVIEW OF SYSTEMS GENERAL: The patient reports fever and chills. ENDOCRINE: He is a diabetic that is newly diagnosed. His sugars have been running in the 300s. PHYSICAL EXAMINATION VITAL SIGNS: Temperature 97.9, pulse 64, blood pressure 121/62, respiratory rate 16, oxygen saturation 95% on room air. GENERAL: The patient is awake and alert. He is seated in bed in no acute distress. RESPIRATORY: No labored breathing. ABDOMEN: Soft, morbidly obese. SKIN: There is a 1 x 1 cm wound in the left inguinal crease which had silver rope placed in it. The packing was removed and the wound was 1 cm deep. There was no evidence of surrounding infection. There was generalized redness and induration throughout the groin creases and some yeast-appearing drainage between the scrotum and the mons pubis and inner thigh. All of the groin creases were very moist. There was more induration of the left mons pubis than the right and a central area of fluctuance with some purplish discoloration measuring approximately 1 cm. There were some small pustules in this area at the skin surface but no open wound. There was also a wound of the left buttock with an overlying bandage. It was difficult to tell if the bandage had drainage or stool but it did seem there was some drainage on the dressing (Telfa ) that was in place. There was no evidence of abscess or tenderness in the area. The scrotum was indurated but I did not see evidence of any purulent material or abscess. EXTREMITIES: There is pitting edema of both lower extremities and chronic skin discoloration. NEUROLOGIC: Cranial nerves II-XII are grossly intact. PSYCHIATRIC: Normal mood and affect. LABORATORY DATA White blood cell count is decreased to 14.6 from 16.1 on admission. He had 70% neutrophils. MICROBIOLOGY Prior culture from 03/12/2017 showed moderate growth of Alvina albicans, light growth of Streptococcus gordonii and light growth of a gram-positive lynn. No sensitivities were performed. IMAGING CT scan of the pelvis from last evening was personally reviewed by me along with the radiology report. The exam was very limited by the patient's body habitus. There was some air in the left groin but it was unclear if this was the area of the patient's prior wound with packing in place. There was also a questionable area in the left buttock but the patient did have a known wound in the area and this was not fully assessed on the CT given the body habitus. MTDD
[2017-03-18] MEDS: FLUCONAZOLE PB 200 MG/100 ML BAG IV SCH (15:14)
[2017-03-19] MEDS: HYDROCODONE/APAP 5mg/325mg TABLET PO PRN ×3 (05:09→20:21)
[2017-03-19] MEDS: CEFAZOLIN 2 G in NS 100 ML IV SCH ×3 (05:11→16:31)
[2017-03-19] MEDS: CLINDAMYCIN PB 900 MG/50 ML BAG IV SCH ×3 (05:52→21:40)
[2017-03-19] MEDS: INSULIN ASPART 100unit/ml INJECTION SQ PRN ×4 (07:10→21:40)
[2017-03-19] MEDS: INSULIN GLARGINE 100unit/ml INJECTION SQ SCH ×2 (08:29→20:18)
[2017-03-19] MEDS: INSULIN ASPART 100unit/ml INJECTION SQ SCH ×3 (08:29→17:53)
--- NOTE | 2017-03-19 08:48 | General Surgery Progress Note ---
Subjective Patient reports: no new complaints, tolerating a regular diet, voiding w/o difficulty Narrative: He was re-admitted over the weekend for cellulitis and abscess left groin. He now has 2 small openings left groin, both about 1.5 cm in depth. the newer one is more anterior and the original is in the groin crease. Cellulitis has spread to the entire mons pubis area and into the right groin compared with last week. - Vital Signs Last Vital Signs Temp 96.9 F 03/19/17 07:16 Pulse 69 03/19/17 07:16 Resp 18 03/19/17 07:16 BP 113/65 03/19/17 07:16 Pulse Ox 93 03/19/17 07:16 - Laboratory Result Diagrams: 03/18/17 04:59 03/18/17 04:59 - Microbiogy Microbiology 03/17/17 18:43 Groin Gram Stain - Final 03/17/17 18:43 Groin Deep Wound Culture - Preliminary Early growth - Abnormal Exam Abdominal: obese (morbidly with significant lymphedema of upper thighs and panus ) Skin: groin and pubic area edematous and red. The anterior wound ribbon gauze is 1/2 out and purulent. There is fibrinous exudate at the base of this wound. Depth 1.5 cm. The left groin crease PolyMem rope is dislodged and laying loose in the groin crease. Depth 1.5 cm. The base of the wound ( as best as can been seen) is free of fibrinous exudate and purulence. Both wounds then repacked with ribbon gauze and 4x4 folded into the groin crease. Would rather not use tape on the erythematous skin for fear of make more wounds. There is a small "pimple" about 2mm, anterior right thigh, left in tact. Left Buttock dressing removed, 2 fairly superficial skin tears about 1-2mm each that are about 1 cm apart, no drainage. Mepilex placed over these for protection. - Normal Exam General: awake, alert, oriented, no acute distress Cardiovascular: regular rate Respiratory: equal bilaterally, no labored breathing Psychiatric: normal affect Neurological: CN 2-12 grossly intact Assessment and Plan (1) Groin abscess Current Visit: Yes Status: Acute (2) Insulin dependent diabetes mellitus Current Visit: Yes Status: Acute (3) Sepsis Current Visit: Yes Status: Acute (4) Hyperglycemia Current Visit: No Status: Acute Plan: A&P: Groin and pubic area edematous and red. The anterior wound ribbon gauze is 1/2 out and purulent. There is fibrinous exudate at the base of this wound. The left groin crease PolyMem rope is dislodged and laying loose in the groin crease. The base of the wound ( as best as can been seen) is free of fibrinous exudate and purulence. Both wounds then repacked with ribbon gauze and 4x4 folded into the groin crease. Would rather not use tape on the erythematous skin for fear of make more wounds. Will change the ribbon gauze BID, DC the PolyMem. There is a small "pimple" about 2mm, anterior right thigh, left in tact. Left Buttock dressing removed, 2 fairly superficial skin tears about 1-2mm each that are about 1 cm apart, no drainage. Mepilex placed over these for protection. Hospital Course Summary Disclaimer: The visit summary below is not to be considered part of the above Progress Note. Hospital Course: 03/19/2017 Wound A&P: Groin and pubic area edematous and red. The anterior wound ribbon gauze is 1/2 out and purulent. There is fibrinous exudate at the base of this wound. The left groin crease PolyMem rope is dislodged and laying loose in the groin crease. The base of the wound ( as best as can been seen) is free of fibrinous exudate and purulence. Both wounds then repacked with ribbon gauze and 4x4 folded into the groin crease. Would rather not use tape on the erythematous skin for fear of make more wounds. Will change the ribbon gauze BID, DC the PolyMem. There is a small "pimple" about 2mm, anterior right thigh, left in tact. Left Buttock dressing removed, 2 fairly superficial skin tears about 1-2mm each that are about 1 cm apart, no drainage. Mepilex placed over these for protection
--- NOTE | 2017-03-19 10:08 | Progress Note ---
DATE 03/18/2017 FINDINGS Mr. Estrada is a 37-year-old gentleman who re-presented over the weekend as a result of development of increasing cellulitis and abscess involving the left inguinal region. The patient did undergo a small incision and drainage of an area of concern within the left mons pubis region. The patient this evening was without complaints. He states that the area within his left inguinal region "blew up" shortly after his discharge. VITALS: Afebrile. Normotensive. Current vitals include temperature 98.1, pulse 69, respirations 18, blood pressure 123/71, SaO2 90% on room air. HEENT: Normocephalic. Pupils equally round and reactive to light and accommodation. CHEST: Clear to auscultation bilaterally. HEART: Regular rate and rhythm. Normal S1 and S2 without gallops, murmurs, or clicks. ABDOMEN: Visualization of the abdomen reveals it to be quite protuberant in nature. Patient is morbidly obese. His pannus was lifted in a cephalad fashion so that one could see the left inguinal region, and mons pubis region. Unfortunately, the mons pubis region is significantly edematous and erythematous in nature. There is a small opening present within the left mons/ suprapubic region that is on the order of about 8 mm in diameter. Packing is within this wound. Additionally, there is a smaller wound that was present upon his recent admission near the left inguinal crease. There is a small piece of silver rope within this opening that is on the order of about 8 mm in diameter. LABORATORY/RADIOGRAPH EVALUATION The patient had a CBC today and his white count is on a downward trend at 11.8. Hemoglobin is stable at 12.3. BMP was obtained and found to be essentially within normal limits with the exception that his blood sugar is 291. Upon admission his blood sugar was 408. Pelvis CT scan was obtained. There was evidence of left inguinal cellulitis with developing abscesses. A small focus of subcutaneous gas could relate to abscess or prior drainage procedure. Recommend close clinical followup to exclude developing Alex's gangrene. ASSESSMENT 37-year-old diabetic gentleman with increasing cellulitis and abscess formation involving left suprapubic/left inguinal region. Status post incision and drainage. PLAN I will review the CT scan personally. Will reevaluate the area of cellulitis tomorrow. The patient may require more formal exploration of area of concern in an operative setting. Would recommend continuing with current antibiotic therapy. Patient currently is on clindamycin, Diflucan and Ancef. Will review prior wound cultures. Clinically the patient does not appear to have Alex' s gangrene at this time. Will continue to follow the patient closely. [facility]
--- NOTE | 2017-03-19 10:24 | Progress Note ---
DATE 03/18/2017 SUBJECTIVE Mr. Wilkins was lying in bed this evening. He doesn't have any complaint. He thinks his pain is better controlled now. PHYSICAL EXAMINATION VITAL SIGNS: Blood pressure 122/71 with a pulse 69, temperature 98.1 and 02 sat 90% on room air. GENERAL: He looks comfortable. NECK: Supple. LUNGS: Clear. CARDIOVASCULAR: Regular rate and rhythm. ABDOMEN: Soft. Nontender. EXTREMITIES: Edema is essentially the same. GROIN: His groin has been dressed by Dr. Gonzalez after incision and drainage. A sample was obtained from the wound area. LABS: White blood count down from 16,000 to 11,800. Hemoglobin stable at 12.3. No bandemia. Electrolytes were normal, especially potassium 3.7. Blood sugar actually is improving quite a bit-246 to 371 and I recall his blood sugars were running 700-800 just last week. Blood culture is negative x 1 day, and deep wound culture shows some other growth mostly moderate gram-positive cocci in pairs and also rods. ASSESSMENT 1. Left groin cellulitis. Patient status post incision and drainage. 2. Newly diagnosed diabetes mellitus, most likely type 2. 3. Severe obesity. 4. Hypertension. 5. Psoriasis. PLAN 1. Continue IV clindamycin/IV cefazolin as well as IV Diflucan today. 2. Await wound culture report. 3. Continue home medication as well. [facility]
[2017-03-19] MEDS: FLUCONAZOLE PB 200 MG/100 ML BAG IV SCH (13:18)
[2017-03-19] MEDS: MEROPENEM 500 MG in NS 50 ML IV SCH (18:11)
--- NOTE | 2017-03-19 18:40 | Progress Note ---
DATE OF SERVICE 03/19/2017 FINDINGS Mr. Estrada today is without complaints. Denies any increasing pain associated with the abscess within the left inguinal region. He does state, however, that he feels that the right suprapubic region has become more firm today in comparison to yesterday. EXAM VITAL SIGNS: Temperature 96.2, pulse 63, respirations 18, blood pressure 126/72 , SAO2 95% on room air. HEENT: Normocephalic. Pupils are equally round and react to light and accommodation. CHEST: Clear to auscultation bilaterally. HEART: Regular rate and rhythm. Normal S1 and S2 without gallops, murmurs or clicks. ABDOMEN: Attention was focused to the area of concern within the mons pubis region. The mons pubis/suprapubic region continues to be quite erythematous in nature. Palpation reveals a fair amount of firmness involving the suprapubic region beneath the area of erythema. There was no evidence for fluctuance. A small Q-tip was able be advanced within each small open wound within the left inguinal crease region as well as within the left mons pubis region. The two areas did not appear to be connected. There did not appear to be excessive tunneling or excessive purulent drainage from these small openings. There are no ecchymotic changes of the skin to suggest necrosis. Palpation did not elicit any evidence for subcutaneous crepitans nor did it elicit severe pain. LABORATORY/RADIOGRAPHIC EVALUATION The patient had a CBC today and his white count is slightly elevated at 12.2. Hemoglobin is stable at 13.3. Blood sugars were slightly improved at 251 earlier today. From a microbiology standpoint, wound cultures revealed gram-positive cocci in pairs well as gram-positive rods. Early growth has been detected on preliminary wound culture. ASSESSMENT 37-year-old morbidly obese diabetic gentleman with marked cellulitis involving suprapubic region. No evidence for Alex's gangrene from a clinical or physical examination standpoint. PLAN Will continue with current care. I do feel the patient would likely benefit from an Infectious Disease consult. He does have multiple antibiotic allergies which does make his antibiotic choices more difficult. Would like to change antibiotics perhaps to a broader spectrum. Will discuss with Pharmacy at this time and await ID consult. Will continue to follow area of concern closely. If the area of concern progressively would become worse may proceed at that time with surgical exploration. [facility]
--- NOTE | 2017-03-19 19:24 | Progress Note ---
DATE 03/19/2017 ERI Wilkins is lying in bed eating supper tonight. He complains of mild lightheadedness. He was just seen by Dr. Esposito who actually discontinued the cefazolin and added meropenem for broader coverage. PHYSICAL EXAM VITAL SIGNS (at 1500 hours): Blood pressure 126/72, pulse 62, temperature 96.2 , respirations 18, oxygen saturation 95% on room air. GENERAL: The patient looks comfortable, in no acute distress. NECK: Supple. CHEST: Lungs have diffuse wheezing. CARDIOVASCULAR: Regular rate and rhythm. No murmur. ABDOMEN: Soft, nontender. There is some drainage noted in the left groin. EXTREMITIES: Chronic edema. NEUROLOGIC: Grossly intact. LABORATORY WBC 12,200 - up slightly. No bandemia. Electrolytes were not done today other than a blood sugar reading of 215-305. Blood culture negative x 48 hours. First wound culture collected on 03/17/2017 shows moderate gram-positive cocci in pairs, moderate gram-positive rods with early growth. ASSESSMENT 1. Sepsis due to #2. 2. Left and right groin cellulitis. 3. Abscess of left mons pubis related to cellulitis. . 4. Newly diagnosed diabetes mellitus. We made changes in patient's insulin two days ago. His blood sugar is actually quite improving, running in the 200-300 range lately. 5. Left buttock wound. 6. Severe obesity. 7. Hypertension by history. 8. History of psoriasis. No acute flare-up due to illness at this time. 9. Chronic lower extremity edema due to chronic venous insufficiency. PLAN 1. Continue IV clindamycin and IV Diflucan. Dr. Esposito discontinued cefazolin and started patient on meropenem. 2. Consultation to Dr. Nguyen, Infectious Disease, has been initiated. 3. Continue to await wound culture report. 4. Continue home medications. 5. Depends on what Dr. Nguyen recommends tomorrow before next action is taken. He may end up needing surgical intervention sometime on Saturday as per Dr. Esposito. 6. I am going to be out of town until 03/25/2017. I am going to be checking out to the hospitalist group in a few minutes. If the patient is here by Saturday, depending on the hospitalists' desire, I am willing to resume care at that time. 7. CBC and BMP in the morning. MTDD
[2017-03-20] MEDS: MEROPENEM 500 MG in NS 50 ML IV SCH ×3 (00:43→17:29)
[2017-03-20] MEDS: IBUPROFEN 600 MG TABLET PO PRN ×2 (00:47→11:41)
[2017-03-20] MEDS: CLINDAMYCIN PB 900 MG/50 ML BAG IV SCH (05:52)
[2017-03-20] MEDS: INSULIN ASPART 100unit/ml INJECTION SQ PRN ×4 (05:59→20:54)
[2017-03-20] MEDS: HYDROCODONE/APAP 5mg/325mg TABLET PO PRN ×3 (05:59→20:53)
[2017-03-20] MEDS: INSULIN GLARGINE 100unit/ml INJECTION SQ SCH ×3 (08:04→20:53)
[2017-03-20] MEDS: INSULIN ASPART 100unit/ml INJECTION SQ SCH ×3 (08:04→17:46)
[2017-03-20] MEDS ORDERED: INSULIN GLARGINE 100unit/ml INJECTION SQ ONE (08:45)
--- NOTE | 2017-03-20 09:12 | Infectious Disease Consult ---
Infectious Disease Consult Date of Consultation: 03/20/17 Requesting Physician: Dave Esposito Reason for Consultation: antibiotic recs History of Present Illness: Mr. Estrada is a 37 y/o man with obesity and newly diagnosed DM. He recently had a glucose of 785, and his Hgb A1C was >15. He was admitted here with a L groin abscess. He reports that he has a h/o recurrent abscesses in the groin area, and he's had them in the axillae and one on the buttock. He reports that the one on his buttock was surgically excised a few years ago, but it keeps recurring. He also has a h/o psoriasis but has never seen Dermatology. He reports that his recent L groin abscess opened up on its own and started draining. He had a wound culture that had GPR on the gram stain, and grew C. albicans, S. gordonii, and a GPR which was not identified. He was discharged on 03/13 and he was not given an antibiotic. He reports that within a couple days of discharge, this area got larger, was the size of a "golfball." He also reports that he had fever on Saturday and so he returned to the ED and was admitted. He also reports that there was redness that spread to the R groin area. He has an area on his R thigh that "retains water" periodically. On admission, he did not have documented fever, his PCT was 0.3. Lactate was elevated, but returned to normal. He was started on ancef and clindamycin. Blood cx from 03/16 are NGTD. Wound culture 03/16 is growing 2 GPRs. This area in the L groin was drained by Dr. Gonzalez on 03/17. I spoke with Dr. Esposito last evening, and he thought this cellulitis was not really improving , so his antibiotics were changed to Merrem and the clinda was continued. The patients is not completely sure what antibiotics he's allergic to other than Sulfa. His chart lists PCN and Vancomycin. Medications Home Medications Medication Instructions Recorded Confirmed Type Aspirin Chewable [ASA] 81 mg PO BID 03/11/17 03/16/17 History Insulin Aspart [NovoLOG] 10 unit SQ TIDWM 03/16/17 03/16/17 History Omeprazole [Prilosec] 20 mg PO DAILY PRN 03/16/17 03/16/17 History Allergies Allergy/AdvReac Type Severity Reaction Status Date / Time Penicillins Allergy Severe Rash Verified 03/17/17 04:22 silver sulfadiazine Allergy Severe Blister Verified 03/17/17 04:22 vancomycin Allergy Intermediate RASH Verified 03/17/17 04:22 Sulfa (Sulfonamide Allergy Mild RASH Verified 03/17/17 04:22 Antibiotics) [facility] Patient Stated Medical History Other HEENT Yes: GLASSES Hypertension Yes Diabetes Mellitus Type 2 Yes MRSA Yes Other Infectious Yes: Staph infection in leg Other Behavioral Health Yes: [facility] Medical History (Last Updated 11/12/16 @ 09:35 by RON Fierro) Hx of bronchitis (Chronic Medical) 1996 Medical History Updates: DM-. HTN (hypertension). Obesity. Psoriasis. Edema extremities. Allergic rhinitis. GERD (gastroesophageal reflux disease). Candidiasis Surgical History: Esophagus widened - 1980 Family History: Family History (Last Updated 11/12/16 @ 09:37 by RON Fierro) Father Obesity Mother No known health problems - Social History Smoking status: Current every day smoker Household members: family Current residence: Apartment/Private Home Review of Systems All systems PM: 10-point ROS was reviewed, no additional remarkable complaints except - Constitutional Constitutional: Present: fever(s) (last Saturday). Absent: chills - Cardiovascular Cardiovascular: Absent: chest pain - Respiratory Respiratory: Absent: cough, dyspnea - Gastrointestinal Gastrointestinal: Absent: diarrhea, nausea, vomiting - Genitourinary Genitourinary: Absent: dysuria - Integumentary/Breasts Integumentary: Present: other (redness over mons pubis area, L groin with draining wound) - Neurological Neurological: Absent: headache(s) Exam Vital Signs: Temperature 98.1 F 03/20/17 07:00 Pulse Rate 65 03/20/17 07:00 Respiratory Rate 20 03/20/17 07:00 Blood Pressure 129/74 03/20/17 07:00 Pulse Oximetry 95 03/20/17 07:00 Height/Weight/BMI: Height 1.8 m Weight 146.8 kg - Constitutional Present: no acute distress, well nourished, well developed, obese - Routine HEENT Exam Head: Present: normocephalic, atraumatic Eye: Present: EOMI, PERRL ENT: Present: mucous membranes moist, oropharynx clear, dentition normal - Routine Neck Exam Present: supple - Routine Respiratory Exam Present: CTA bilaterally - Routine Cardiovascular Exam Present: RRR - Routine Abdominal Exam Present: soft, normoactive bowel sounds. Absent: non distended, non tender - Routine Exam Groin: Present: swelling (mons pubis area and scrotum ), erythema (moderate erythema over mons pubis area and scrotum) Comments: L groin has a large indurated area that has purulent drainage - Routine Extremities Exam Absent: cyanosis, clubbing, edema - Routine Skin Exam Present: intact, rash (consistent with psoriasis on elbows, extensor surfaces of LEs), cracked (skin on feet) Comments: His R thigh is edematous consistent with lymphedema, with moderate erythema over it. He has scars in axillae. - Routine Neurological Exam Present: alert, oriented X3, CN II-XII intact. Absent: motor deficit - Routine Psychiatric Exam Present: normal affect Results - Labs CBC & Chem 7: 03/20/17 04:31 03/20/17 04:31 Microbiology Results: Microbiology 03/17/17 18:43 Groin Gram Stain - Final 03/17/17 18:43 Groin Deep Wound Culture - Preliminary Early growth - Impressions CT pelvis 03/17/17: Impression: Evidence of a left inguinal cellulitis with developing abscesses. Small foci of subcutaneous gas could relate to abscess or prior drainage procedure. Recommend close clinical follow-up to exclude developing Alex's gangrene and short-term repeat CT as indicated. Impression: Sepsis secondary to skin source. Cellulitis over mons pubis, with L groin abscess, s/p drainage 03/17/17. Wound culture 03/16 with GPRs. Previous wound culture with S. gordonii, GPR and C. albicans Morbid obesity DM II, newly diagnosed, with Hgb A1C>15. Psoriasis Probable hydradenitis suppurativa Tobacco use Questionable PCN, Vanco allergies, also sulfa allergy Recommendation: Would continue the Merrem for now. Will stop Clindamycin because clinically he does not appear to have Alex's gangrene. Will follow up wound culture results. 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 He also needs to stop smoking, lose weight and get his blood sugars under control.
[2017-03-20] MEDS: SALINE FLUSH 10ml SYRINGE IVF PRN (09:52)
[2017-03-20] MEDS: FLUCONAZOLE PB 200 MG/100 ML BAG IV SCH ×2 (13:38→16:00)
--- NOTE | 2017-03-20 15:48 | Progress Note ---
DATE OF SERVICE 03/21/2017 FINDINGS Mr. Estrada was seen earlier this morning on rounds. Patient without complaints. EXAM VITAL SIGNS: Afebrile, normotensive. Last recorded vitals include temperature 98.1, pulse 65, respirations 20, blood pressure 129/74, SAO2 95% on room air. CHEST: Clear to auscultation bilaterally. HEART: Regular rate and rhythm. Normal S1 and S2 without gallops, murmurs or clicks. ABDOMEN: Soft, nontender. Attention was focused to the area of concern within the suprapubic/mons pubis region. Upon visualization I do believe that the erythema has begun to slightly dissipate. Upon palpation there does appear to be less firmness noted involving the right suprapubic/mons pubis region. This area, however, still is moderately firm in nature. There is active drainage coming forth from the two openings within the left suprapubic/mons pubis region. There is no evidence for ecchymosis of the skin. No "purplish discoloration." Palpation does not reveal any evidence for lying subcutaneous crepitans nor severe pain upon palpation. The left suprapubic region continues to be moderately firm in nature. LABORATORY/RADIOGRAPHIC EVALUATION The patient had a CBC today and her white count was 10.9. CMP was obtained and reviewed. Blood sugars are improving at 224. ASSESSMENT 37-year-old morbidly obese, newly diagnosed diabetic gentleman with marked cellulitis/abscess involving suprapubic region. PLAN I do believe there is some improvement now noted in regards to the cellulitis/ infection involving the suprapubic region. Will await ID consult today for additional antibiotic recommendations. I will go ahead at this time and make the patient n.p.o. after midnight and reevaluate the area of concern tomorrow morning. If the area continues to improve, will then cancel surgery. If, on the other hand, there continues to be a fair amount of erythema and induration or if there is any concern for underlying necrotic infectious process, will then proceed with surgical intervention with exploration of the wounds within the left superficial suprapubic region and excisional surgical debridement as indicated upon intraoperative findings. The above plan was discussed with the patient. He understood and agreed. BULMARO
[2017-03-20] MEDS: NS FLUSH BAG 500ml IV PRN (15:59)
--- NOTE | 2017-03-20 16:28 | Progress Note ---
- Date 03/20/17 Subjective: Dr. Muhammad covering for Dr. Rodarte. I have reviewed the chart. The patient was seen this afternoon in his room. He stated he was feeling sweaty at times and hot. He has not had any fevers. His nurse stated that he had some pus that drained from his wound earlier today. Plans are for return to the OR tomorrow with Dr. Esposito. At sugars are under better control today. He is eating and drinking okay. He denies any shortness of breath. He states he's been told he probably has sleep apnea but has not been tested for it. He denies any pain except in his groin and low back. He states he's getting increased edema in his right thigh and left pannus area. He is currently not on his usual diuretics or blood pressure medications. Blood pressures have been well-controlled without his usual antihypertensives. Objective Vital signs: Temperature 98.1 F 03/20/17 07:00 Pulse Rate 65 03/20/17 07:00 Respiratory Rate 20 03/20/17 07:00 Blood Pressure 129/74 03/20/17 07:00 Pulse Oximetry 95 03/20/17 07:00 Height/Weight/BMI: Height 1.8 m Weight 146.8 kg Comments: GEN-alert, oriented, no acute distress HEENT-sclera anicteric, oropharynx is moist, no thrush NECK-supple CV-regular rate and rhythm CHEST-clear to auscultation bilaterally ABD-soft, obese, nontender and nondistended with positive bowel sounds -wound is currently packed EXT-the patient has edema in the right thigh which is pitting with some surrounding erythema NEURO-no focal deficits SKIN-patient has a wound just packed in his groin. He has erythema of the right upper thigh and has chronic edema here. He has probable yeast infection under his pannus and is currently being treated with nystatin powder. Results - Labs CBC & Chem 7: 03/20/17 04:31 03/20/17 04:31 Labs: Last blood sugar was 191, reveals blood sugars this morning and yesterday were in the 200 range. Bands are stable at 5, neutrophils 59, white count is 10 down from 12 Microbiology Results: Microbiology 03/17/17 18:43 Groin Gram Stain - Final 03/17/17 18:43 Groin Deep Wound Culture - Preliminary Gram Positive Jama Gram Positive Jama#2 Assessment and Plan (1) Hyperglycemia Current visit: No Status: Acute (2) Groin abscess Current visit: Yes Status: Acute (3) Insulin dependent diabetes mellitus Current visit: Yes Status: Acute Assessment and Plan: Impression Sepsis Cellulitis/abscess right groin Possible hidradenitis suppurativa -patient might benefit from dermatology consult as an outpatient Vlqniyfb-hge-dzyac-slowly poorly controlled-currently improving Morbid obesity Chronic lower extremity edema, with increased edema today per patient-restart Lasix Hypertension-blood pressure medications for now as blood pressures are not elevated Possible sleep apnea Plan Continue meropenem for cellulitis/abscess. Clindamycin was discontinued. He continues on Diflucan IV. PICC line was placed earlier today Dr. Esposito is planning on taking the patient back for repeat I&D and possible wound VAC placement. Lantus and NovoLog with meals was increased slightly today. Continue to monitor blood sugars closely. Diabetes education will be ordered. Overnight oximetry on room air regarding possible sleep apnea. Start Lasix for lower extremity edema Continue total hold antihypertensives Repeat CBC with differential and basic metabolic profile tomorrow. Discussed with the patient, his nurses, and Dr. Nguyen. - Physician Narrative Narrative: Date: 03/20/17 Time: 1614 Hospital Course Summary Disclaimer: The visit summary below is not to be considered part of the above Progress Note. Hospital Course: 03/19/2017 Wound A&P: Groin and pubic area edematous and red. The anterior wound ribbon gauze is 1/2 out and purulent. There is fibrinous exudate at the base of this wound. The left groin crease PolyMem rope is dislodged and laying loose in the groin crease. The base of the wound ( as best as can been seen) is free of fibrinous exudate and purulence. Both wounds then repacked with ribbon gauze and 4x4 folded into the groin crease. Would rather not use tape on the erythematous skin for fear of make more wounds. Will change the ribbon gauze BID, DC the PolyMem. There is a small "pimple" about 2mm, anterior right thigh, left in tact. Left Buttock dressing removed, 2 fairly superficial skin tears about 1-2mm each that are about 1 cm apart, no drainage. Mepilex placed over these for protection
[2017-03-20] MEDS ORDERED: OMEPRAZOLE 20 MG CAPSULE PO PRN (17:49)
[2017-03-21] MEDS: MEROPENEM 500 MG in NS 50 ML IV SCH ×3 (00:59→19:07)
[2017-03-21] MEDS: SALINE FLUSH 10ml SYRINGE IVF PRN ×2 (00:59→03:29)
[2017-03-21] MEDS ORDERED: MORPHINE SULFATE 2mg INJECTION IVP PRN (03:13)
[2017-03-21] MEDS: LEVOTHYROXINE 50 MCG TABLET PO SCH (05:46)
[2017-03-21] MEDS: INSULIN ASPART 100unit/ml INJECTION SQ PRN (06:21)
[2017-03-21] MEDS: INSULIN ASPART 100unit/ml INJECTION SQ SCH ×3 (08:16→18:06)
[2017-03-21] MEDS: FUROSEMIDE 80 MG TABLET PO SCH (09:30)
[2017-03-21] MEDS: INSULIN GLARGINE 100unit/ml INJECTION SQ SCH ×2 (09:31→20:16)
[2017-03-21] MEDS: POTASSIUM CHLORIDE PREMIX 10 MEQ/100 ML BAG IV SCH ×2 (10:06→11:10)
--- NOTE | 2017-03-21 10:33 | General Surgery Progress Note ---
Subjective Patient reports: no new complaints Narrative: Pussy fluid still draining from abscesses. WBC had down again today to 9.6 ( 10.9 yesterday) - Vital Signs Last Vital Signs Temp 98.9 F 03/21/17 07:21 Pulse 69 03/21/17 07:21 Resp 18 03/21/17 07:21 BP 145/88 H 03/21/17 07:21 Pulse Ox 95 03/21/17 07:21 - Laboratory Result Diagrams: 03/21/17 04:03 03/21/17 04:03 - Microbiogy Microbiology 03/17/17 18:43 Groin Gram Stain - Final 03/17/17 18:43 Groin Deep Wound Culture - Preliminary Gram Positive Jama Gram Positive Jama#2 - Abnormal Exam Male: other (cellulitis abscess of Mons and pubic area) - Normal Exam General: awake, alert, oriented, no acute distress Respiratory: no labored breathing Assessment and Plan (1) Groin abscess Current Visit: Yes Status: Acute (2) Insulin dependent diabetes mellitus Current Visit: Yes Status: Acute (3) Sepsis Current Visit: Yes Status: Acute (4) Hyperglycemia Current Visit: No Status: Acute Plan: Plan on Surgical exploration of pubic/mons pubis area later today. Hospital Course Summary Disclaimer: The visit summary below is not to be considered part of the above Progress Note. Hospital Course: 03/19/2017 Wound A&P: Groin and pubic area edematous and red. The anterior wound ribbon gauze is 1/2 out and purulent. There is fibrinous exudate at the base of this wound. The left groin crease PolyMem rope is dislodged and laying loose in the groin crease. The base of the wound ( as best as can been seen) is free of fibrinous exudate and purulence. Both wounds then repacked with ribbon gauze and 4x4 folded into the groin crease. Would rather not use tape on the erythematous skin for fear of make more wounds. Will change the ribbon gauze BID, DC the PolyMem. There is a small "pimple" about 2mm, anterior right thigh, left in tact. Left Buttock dressing removed, 2 fairly superficial skin tears about 1-2mm each that are about 1 cm apart, no drainage. Mepilex placed over these for protection
[2017-03-21] MEDS ORDERED: BUPIVACAINE 0.5%/EPI 1:200,000 INJ 30ml SDV INJ ONE (11:00)
[2017-03-21] MEDS: LR 1,000 ML IV SCH ×3 (13:25→20:17)
[2017-03-21] MEDS ORDERED: MIDAZOLAM 2mg/2ml INJECTION ONE ×2 (13:33→14:12)
[2017-03-21] MEDS ORDERED: FentaNYL 250 MCG/5 ML INJECTION ONE ×2 (13:33→14:16)
[2017-03-21] MEDS ORDERED: BUPIVACAINE 0.5%/EPI 1:200,000 INJ 30ml SDV ONE (13:57)
[2017-03-21] MEDS ORDERED: BUPIVACAINE 0.25%/EPI 1:200,000 30ml SDV ID ONE (13:57)
[2017-03-21] MEDS ORDERED: KETAMINE 500 MG/10 ML INJECTION ONE (13:58)
[2017-03-21] MEDS ORDERED: BUPIVACAINE 0.5%/EPI 1:200,000 INJ 30ml SDV ID ONE (14:04)
[2017-03-21] MEDS ORDERED: SALINE FLUSH 10ml SYRINGE ONE (14:47)
[2017-03-21] MEDS ORDERED: PHENYLEPHRINE INJ 10 MG/ML VIAL IV ONE (14:47)
--- NOTE | 2017-03-21 14:52 | Progress Note ---
DATE OF SERVICE 03/21/2017 FINDINGS Mr. Estrada was seen earlier this morning on rounds. He states he is still experiencing a component of discomfort within the inguinal/scrotal region. This discomfort, however, is stable and has not progressively become worse. EXAM VITAL SIGNS: Afebrile, normotensive. Current vitals include temperature 98.9 , pulse 69, respirations 18, blood pressure 145/88, SAO2 95% on room air. HEENT: Normocephalic. Pupils are equally round and react to light and accommodation. CHEST: Clear to auscultation bilaterally. ABDOMEN: Soft, nontender. Attention was focused to the area of concern within the suprapubic/mons pubis region. There is still a moderate amount of erythema involving the suprapubic region. Palpation still reveals a fair amount of induration involving the left and right mons pubis. There has been perhaps some slight improvement. However, this is fairly subtle. There is still a moderate amount of purulent material coming forth from a small opening that is only on the order of 5-6 mm in diameter from his prior incision and drainage site within the left mons pubis region. ASSESSMENT 37-year-old morbidly obese gentleman with cellulitis involving suprapubic region , status post I&D of underlying abscess. PLAN From a physical examination standpoint today there does appear to be increasing purulent drainage coming forth from a small opening within the left mons pubis region. I would have anticipated that the induration and erythema should have resolved to a greater extent than it has at this point in time. Given this increasing purulent drainage and failure of the cellulitis to show marked improvement, it was my recommendation that we go ahead and proceed with exploration of this small wound within the left suprapubic region by making a larger incision and evaluating the underlying tissues. If the patient is found to have fairly significant necrosis of underlying subcutaneous tissues will then proceed with excisional surgical debridement as indicated. The above plan was discussed with the patient. He understood and agreed. BULMARO
[2017-03-21] MEDS ORDERED: ONDANSETRON 4 MG/2 ML INJECTION ONE (15:40)
[2017-03-21] MEDS ORDERED: SUGAMMADEX 200mg/2ml INJECTION IVP ONE (15:41)
--- NOTE | 2017-03-21 16:12 | General Surgery Procedure Note ---
Date of Procedure: 03/21/17 Surgeon: Cate Tapper Operator: Mikel Sanford APRN Postoperative Diagnosis: Cellulitis with multiple abscesses mon pubis area Procedure: Wide surgical debridement of skin, subcutaneous tissue, fascia and additional necrotic tissue in the mons pubis Estimated Blood Loss: See Anesthesia Record.
[2017-03-21] MEDS ORDERED: MORPHINE SULFATE 10 MG SYRINGE IVP PRN (16:35)
--- NOTE | 2017-03-21 17:12 | Anesthesia Preoperative Report ---
Anesthesia Preoperative Record - Date and Time Date: 03/21/17 Preoperative Diagnosis: groin abscess Proposed Procedure: groin wound I&D Allergies/Adverse Reactions: Allergies Allergy/AdvReac Type Severity Reaction Status Date / Time Penicillins Allergy Severe Rash Verified 03/17/17 04:22 silver sulfadiazine Allergy Severe Blister Verified 03/17/17 04:22 vancomycin Allergy Intermediate RASH Verified 03/17/17 04:22 Sulfa (Sulfonamide Allergy Mild RASH Verified 03/17/17 04:22 Antibiotics) - Vital Signs Vital Signs: Temperature 97.8 F 03/21/17 16:50 Pulse Rate 93 03/21/17 16:45 Respiratory Rate 30 H 03/21/17 16:45 Blood Pressure 131/62 03/21/17 16:45 Pulse Oximetry 92 03/21/17 16:45 Height and Weight: Height 5 ft 11 in Weight 244 kg - Medications Inpatient Medications: Current Medications Hydrocodone Bitart/Acetaminophen ([place] 5/325) 1 tab PO Q6H PRN PRN Reason: Pain Last Admin: 03/20/17 20:53 Dose: 1 tab Furosemide (Lasix) 80 mg PO QAM [facility] Last Admin: 03/21/17 09:30 Dose: 80 mg Glucose (Glutose 15) 37.5 gm PO PRN PRN PRN Reason: Hypoglycemia Meropenem 500 mg/ Sodium (Chloride) 50 mls @ 100 mls/hr IV Q8HR [facility] Last Infusion: 03/21/17 10:03 Dose: Infused Fluconazole (Diflucan Premix) 200 mg in 100 mls @ 100 mls/hr IV 1600 [facility] Last Infusion: 03/20/17 17:00 Dose: Infused Lactated Ringer's (Lactated Ringers) 1,000 mls @ 75 mls/hr IV .[id number] [facility] Last Infusion: 03/21/17 16:52 Dose: 75 mls/hr Ibuprofen (Motrin) 600 mg PO Q6H PRN PRN Reason: Pain Last Admin: 03/20/17 11:41 Dose: 600 mg Insulin Aspart (Novolog) 3 - 12 unit SQ SS PRN; Protocol PRN Reason: Hyperglycemia Last Admin: 03/21/17 06:21 Dose: 3 unit Insulin Aspart (Novolog) 14 unit SQ WM [facility] Last Admin: 03/21/17 11:37 Dose: Not Given Insulin Glargine (Lantus) 18 unit SQ BID [facility] Last Admin: 03/21/17 09:31 Dose: 18 unit Ketorolac Tromethamine (Toradol Inj) 30 mg IVP Q6H PRN PRN Reason: Pain Levothyroxine Sodium (Synthroid) 50 mcg PO ACB [facility] Last Admin: 03/21/17 05:46 Dose: Not Given Morphine Sulfate (Morphine Sulfate Inj) 2 mg IVP Q3-4HR PRN PRN Reason: Pain Last Admin: 03/21/17 03:28 Dose: 2 mg Morphine Sulfate (Morphine Sulfate Hitcher) 30 mg IV PRN PRN; Protocol PRN Reason: Protocol Nystatin (Mycostatin) 1 applic TP BID [facility] Last Admin: 03/21/17 09:31 Dose: 1 applic Ondansetron HCl (Zofran) 4 mg IVP Q6H PRN PRN Reason: Nausea &/or vomiting Pantoprazole Sodium (Protonix Iv) 40 mg IVP DAILY [facility] Pot[facility] Last Admin: 03/21/17 08:16 Dose: Not Given Sodium Chloride (Iv Flush) 10 - 80 ml IVF PRN PRN PRN Reason: Flushing Last Admin: 03/21/17 03:29 Dose: 20 ml Sodium Chloride (Normal Saline) 500 ml IV PRN PRN Last Admin: 03/20/17 15:59 Dose: 500 ml Home Medications: Home Medications Medication Instructions Recorded Confirmed Type Aspirin Chewable [ASA] 81 mg PO BID 03/11/17 03/16/17 History Insulin Aspart [NovoLOG] 10 unit SQ TIDWM 03/16/17 03/16/17 History Omeprazole [Prilosec] 20 mg PO DAILY PRN 03/16/17 03/16/17 History Is Patient on Beta Rl?: No - Medical History Cardiovascular: Reports: Hypertension Gastrointestional: Reports: Morbid Obesity DENIES: Nausea or Vomiting Present Renal/Endocrine: Reports: Diabetes Mellitus Type 2, Thyroid Disease Other History: DENIES: Anesthesia Reactions - Surgical History Cardiac Surgeries/Treatments: DENIES: Pacemaker GI Surgery/Treatments: Reports: Other (NARROW ESOPHAGUS; had sx as a baby) Reproductive Surgery/Treatment: DENIES: Mastectomy Anesthesia Reactions: None Hx Family Anesthesia Reaction: No History of Motion Sickness: No - Social History Smoking Status: Current every day smoker Hx Chewing Tobacco Use: No Second Hand Exposure: No Substance Use Type: does not use - Pertinent Findings Laboratory: CBC and BMP 03/21/17 04:03 03/21/17 04:03 BMP 03/21/17 04:03 Sodium 138 Potassium 4.3 Chloride 101 Carbon Dioxide 31 H BUN 10.0 Creatinine 0.8 Glucose 194 H Calcium 8.6 EKG: Sinus Rhythm - Physical Exam Respiratory Exam: Present: lungs clear, bilateral breath sounds equal ( diminished due to weight) Cardiovascular Exam: Present: regular rate and rhythm - Airway Assessment Mallampati Score: III TMD: 3 Fingerbreadths Neck Extension: good Overall Assessment: may be difficult mask vent (quinonez), may be difficult intubation - ASA ASA Score: 3 - Plan Anesthesia: General Inhalation Gases (as backup), MAC - Discussion Discussion: Discussed risks/options/alternatives of anesthesia and questions answered. Patient consents. Nursing pain assessment noted. Present for Discussion: parent (mother) Attestation Statement: Prior to the delivery of any anesthetic medication, I examined the patient, developed the plan, obtained the patient's consent and discussed the risk and benefits of the procedure with the patient/guardian. - Additional Information Seen by Anesthesia: Yes
[2017-03-21] MEDS: FLUCONAZOLE PB 200 MG/100 ML BAG IV SCH (17:22)
--- NOTE | 2017-03-21 17:42 | Progress Note ---
- Date 03/21/17 Subjective: The pt is seen in CCU stop her to sleep. He is currently on BiPAP. He underwent wide surgical debridement of skin, subcutaneous tissue, fascia and additional necrotic tissue in the mons pubis area. He is somnolent but arousable. He is able to move all 4 extremities on command. He complains of incisional pain. He denies any headache, chest pain or upper abdominal pain. He denies any shortness of breath. He denies nausea. His stepmother and brother are both here and they were updated. Objective Vital signs: Temperature 97.8 F 03/21/17 16:50 Pulse Rate 93 03/21/17 16:45 Respiratory Rate 30 H 03/21/17 16:45 Blood Pressure 131/62 03/21/17 16:45 Pulse Oximetry 92 03/21/17 16:45 Height/Weight/BMI: Height 1.8 m Weight 244 kg Comments: Afebrile, blood pressure 106/57, respirations 27, heart rate 81, O2 sat 94% on BiPAP with FiO2 of 35%. GEN-somnolent but arousable, on BiPAP, appears in no distress HEENT-BiPAP on NECK-supple CV-regular rate and rhythm CHEST-distant breath sounds, no wheezes or crackles appreciated ABD-soft, obese, nontender, hypoactive bowel sounds -Garcia in place with good urine output EXT-he has upper thigh edema, feet and pretibial area without significant edema NEURO-somnolent post surgery but moves all 4 extremities without difficulties. Answers questions appropriately SKIN-warm and dry Results - Labs CBC & Chem 7: 03/21/17 04:03 03/21/17 04:03 Microbiology Results: Microbiology 03/21/17 15:19 Surgery Site Tissue Surgical Culture - Preliminary Culture Initiated - Results Pending 03/17/17 18:43 Groin Gram Stain - Final 03/17/17 18:43 Groin Deep Wound Culture - Preliminary Gram Positive Jama Gram Positive Jama#2 Assessment and Plan (1) Hyperglycemia Current visit: No Status: Acute (2) Groin abscess Current visit: Yes Status: Acute (3) Insulin dependent diabetes mellitus Current visit: Yes Status: Acute Assessment and Plan: Impression Sepsis Cellulitis/abscess right groin-status post Wide surgical debridement of skin, subcutaneous tissue, fascia and additional necrotic tissue in the mons pubis -plans to return to surgery on 03/22/2017 to reevaluate the wound Possible hidradenitis suppurativa -patient might benefit from dermatology consult as an outpatient Czmmmpmn-glt-acutx-slowly poorly controlled-currently improving Morbid obesity Chronic lower extremity edema, with increased edema 03/20/2017 per patient Hypertension-blood pressure medications for now as blood pressures are not elevated Possible sleep apnea Plan Continue meropenem for cellulitis/abscess. Clindamycin was discontinued. He continues on Diflucan IV. Dr. Esposito is planning on taking the patient back for repeat I&D and possible wound VAC placement 03/22/2017. Continue Lantus and NovoLog with meals. Continue to monitor blood sugars closely and adjust insulin as needed. Diabetes education will be ordered. Overnight oximetry on room air last night with 4.5 desaturations per hour. He spent 11 minutes below 89%. RT was uncertain if patient slept at all last night. The patient may benefit from formal sleep study. Continue total hold antihypertensives for now Repeat CBC with differential and basic metabolic profile tomorrow. Discussed with the patient's nurse and family. DVT Prophylaxis: SCD's Resuscitation Status: Full Code - Time spent with patient Time with patient PN: 30 minutes - Physician Narrative Narrative: Date: 03/21/17 Time: 1737 Hospital Course Summary Disclaimer: The visit summary below is not to be considered part of the above Progress Note. Hospital Course: 03/19/2017 Wound A&P: Groin and pubic area edematous and red. The anterior wound ribbon gauze is 1/2 out and purulent. There is fibrinous exudate at the base of this wound. The left groin crease PolyMem rope is dislodged and laying loose in the groin crease. The base of the wound ( as best as can been seen) is free of fibrinous exudate and purulence. Both wounds then repacked with ribbon gauze and 4x4 folded into the groin crease. Would rather not use tape on the erythematous skin for fear of make more wounds. Will change the ribbon gauze BID, DC the PolyMem. There is a small "pimple" about 2mm, anterior right thigh, left in tact. Left Buttock dressing removed, 2 fairly superficial skin tears about 1-2mm each that are about 1 cm apart, no drainage. Mepilex placed over these for protection
[2017-03-21] MEDS: MORPHINE PCA 30 MG/30 ML SYRINGE IV PRN (17:48)
[2017-03-21] MEDS: NS FLUSH BAG 500ml IV PRN (19:07)
[2017-03-21] MEDS ORDERED: ALBUTEROL 2.5mg/3ml (0.083%) NEB AEROSOL PRN (20:05)
[2017-03-21] MEDS ORDERED: INSULIN ASPART 100unit/ml INJECTION SQ ONE (20:08)
[2017-03-21] MEDS ORDERED: FALL RISK - PHARMACY CONSULT XX ONE (23:18)
[2017-03-22] MEDS: SALINE FLUSH 10ml SYRINGE IVF PRN ×3 (00:05→20:16)
[2017-03-22] MEDS: KETOROLAC 30 MG/ML INJECTION IVP PRN ×3 (00:05→20:15)
[2017-03-22] MEDS: MEROPENEM 500 MG in NS 50 ML IV SCH ×3 (01:59→18:19)
[2017-03-22] MEDS: INSULIN ASPART 100unit/ml INJECTION SQ PRN ×2 (06:15→21:45)
[2017-03-22] MEDS: LEVOTHYROXINE 50 MCG TABLET PO SCH ×2 (06:33→07:10)
[2017-03-22] MEDS: INSULIN GLARGINE 100unit/ml INJECTION SQ SCH ×2 (08:19→21:45)
[2017-03-22] MEDS: PANTOPRAZOLE 40 MG INJECTION IVP SCH (08:20)
--- NOTE | 2017-03-22 09:17 | ID Progress Note ---
Subjective Date: 03/22/17 Subjective: Mr. Estrada underwent wide surgical excision of necrotic tissue involving the mons pubis yesterday. He states that he was not a week afterwards to speak with Dr. Esposito. He is feeling relatively well today with the exception of some pain at the surgical site. He felt warm yesterday evening and said he was drenched with sweat. He denies any nausea or diarrhea. He has been on oxygen since yesterday. He did not have a fever charted yesterday. Clindamycin was restarted. He is going back to the OR today. Exam Vital Signs: Temperature 97.9 F 03/22/17 07:15 Pulse Rate 58 L 03/22/17 07:15 Respiratory Rate 18 03/22/17 07:15 Blood Pressure 120/62 03/22/17 07:15 Pulse Oximetry 97 03/22/17 07:15 Height/Weight/BMI: Height 1.8 m Weight 244 kg - Constitutional Present: no acute distress, well nourished, well developed, obese - Routine HEENT Exam Head: Present: normocephalic, atraumatic Eye: Present: EOMI, PERRL ENT: Present: mucous membranes moist, dentition normal - Routine Neck Exam Present: supple - Routine Respiratory Exam Present: CTA bilaterally Comments: On 2L O2 - Routine Cardiovascular Exam Present: RRR - Routine Abdominal Exam Present: soft (obese), normoactive bowel sounds, non distended, non tender - Routine Extremities Exam Present: edema (trace LE). Absent: joint swelling - Routine Skin Exam Absent: rash Comments: Large surgical wound over mons pubis area that is packed. Surrounding cellulitis appears improved, and the erythema of R thigh is improved. - Routine Neurological Exam Present: alert, oriented X3, CN II-XII intact. Absent: motor deficit - Routine Psychiatric Exam Present: normal affect, normal thought process Results - Labs CBC & Chem 7: 03/22/17 04:16 03/22/17 04:16 Microbiology Results: Microbiology 03/21/17 15:19 Surgery Site Tissue Gram Stain - Final 03/21/17 15:19 Surgery Site Tissue Surgical Culture - Preliminary Culture Initiated - Results Pending 03/17/17 18:43 Groin Gram Stain - Final 03/17/17 18:43 Groin Deep Wound Culture - Final Gram Positive Jama Gram Positive Jama#2 Impression: Sepsis secondary to skin source. Cellulitis over mons pubis, with L groin abscess, s/p drainage 03/17/17. Wound culture 03/16 with GPRs. Previous wound culture with S. gordonii, GPR and C. albicans Morbid obesity DM II, newly diagnosed, with Hgb A1C>15. Psoriasis Probable hydradenitis suppurativa Tobacco use Questionable PCN, Vanco allergies, also sulfa allergy Recommendation: Continue Merrem for now. I've spoken with the Micro lab and asked them to work up the gram positive rods. Continue fluconazole and Clindamycin also. I suspect the Merrem can be narrowed in the next few days. Will await surgical findings today.
[2017-03-22] MEDS: CLINDAMYCIN PB 900 MG/50 ML BAG IV SCH ×2 (09:34→19:01)
[2017-03-22] MEDS: INSULIN ASPART 100unit/ml INJECTION SQ SCH ×3 (09:35→18:48)
--- NOTE | 2017-03-22 12:20 | Progress Note ---
- Date 03/22/17 Subjective: The patient was seen in his room this afternoon. He states his pain is controlled if he is not moving. He is using the Dilaudid when necessary. He denies any shortness of breath but did have some apneic episodes last night requiring BiPAP. He is on 2 L now. He denies any chest pain or abdominal pain. He is hungry, but is nothing by mouth for surgery this afternoon for wound reevaluation and further debridement if needed. He will likely have a wound VAC. Interestingly, he states that he has needed glasses since he was in high school but now his vision is great without glasses. Objective Vital signs: Temperature 98.6 F 03/22/17 11:00 Pulse Rate 66 03/22/17 11:00 Respiratory Rate 20 03/22/17 11:00 Blood Pressure 114/53 03/22/17 11:00 Pulse Oximetry 93 03/22/17 11:00 Height/Weight/BMI: Height 1.8 m Weight 246 kg Comments: GEN-alert, oriented, no acute distress CV-regular rate and rhythm CHEST-clear to auscultation bilaterally ABD-soft, nontender with positive bowel sounds -Garcia in place, scrotal edema, wound in his lower abdomen/mons this is packed EXT-+1 pedal edema, he does have pitting edema in his right medial thigh NEURO-no focal deficits SKIN-warm and dry, wound not unpacked and examined Results - Labs CBC & Chem 7: 03/22/17 04:16 03/22/17 04:16 Labs: Blood sugars have ranged from 140s to 190s which is an improvement. Bands are 5 down from 7. White count is 13 up from 9.6. Microbiology Results: Microbiology 03/21/17 15:19 Surgery Site Tissue Gram Stain - Final 03/21/17 15:19 Surgery Site Tissue Surgical Culture - Preliminary Culture Initiated - Results Pending 03/17/17 18:43 Groin Gram Stain - Final 03/17/17 18:43 Groin Deep Wound Culture - Final Gram Positive Jama Gram Positive Jaam#2 Assessment and Plan (1) Hyperglycemia Current visit: No Status: Acute (2) Groin abscess Current visit: Yes Status: Acute (3) Insulin dependent diabetes mellitus Current visit: Yes Status: Acute Assessment and Plan: Impression Sepsis Cellulitis/abscess/necrosis of soft tissue and fascia right groin-status post Wide surgical debridement of skin, subcutaneous tissue, fascia and additional necrotic tissue in the mons pubis 03/21/2017-plans to return to surgery today to reevaluate the wound Possible hidradenitis suppurativa -patient might benefit from dermatology consult as an outpatient Efpdywpu-kyp-qxvkd-blood sugar control is better now, continue to adjust insulin as needed Morbid obesity Chronic lower extremity edema, with increased edema 03/20/2017 per patient Hypertension-blood pressure medications on hold for now as blood pressures are not elevated Possible sleep apnea Hypothyroidism-TSH was elevated here in the hospital yesterday, but the patient had been off of his Synthroid for about 5 days while here in the hospital. Plan Continue meropenem, Diflucan and clindamycin for cellulitis/abscess/necrosis. Dr Gonzalez is planning on taking the patient back for repeat I&D and possible wound VAC placement 03/22/2017. Continue Lantus and NovoLog with meals. Continue to monitor blood sugars closely and adjust insulin as needed. Diabetes education will be ordered. Overnight oximetry on room air last night with 4.5 desaturations per hour. He spent 11 minutes below 89%. RT was uncertain if patient slept at all last night. The patient may benefit from formal sleep study. BiPAP as needed Continue to hold antihypertensives for now Repeat CBC with differential and basic metabolic profile tomorrow. Restart usual home dose of Synthroid. Patient may need a TSH repeat in 4-[address] Gonzalez and Dr. Nguyen and the patient's nurse. DVT Prophylaxis: SCD's - Physician Narrative Narrative: Date: 03/22/17 Time: 1216 Hospital Course Summary Disclaimer: The visit summary below is not to be considered part of the above Progress Note. Hospital Course: 03/19/2017 Wound A&P: Groin and pubic area edematous and red. The anterior wound ribbon gauze is 1/2 out and purulent. There is fibrinous exudate at the base of this wound. The left groin crease PolyMem rope is dislodged and laying loose in the groin crease. The base of the wound ( as best as can been seen) is free of fibrinous exudate and purulence. Both wounds then repacked with ribbon gauze and 4x4 folded into the groin crease. Would rather not use tape on the erythematous skin for fear of make more wounds. Will change the ribbon gauze BID, DC the PolyMem. There is a small "pimple" about 2mm, anterior right thigh, left in tact. Left Buttock dressing removed, 2 fairly superficial skin tears about 1-2mm each that are about 1 cm apart, no drainage. Mepilex placed over these for protection 03/21/2017 Plan Continue meropenem for cellulitis/abscess. Clindamycin was discontinued. He continues on Diflucan IV. Dr. Esposito is planning on taking the patient back for repeat I&D and possible wound VAC placement 03/22/2017. Continue Lantus and NovoLog with meals. Continue to monitor blood sugars closely and adjust insulin as needed. Diabetes education will be ordered. Overnight oximetry on room air last night with 4.5 desaturations per hour. He spent 11 minutes below 89%. RT was uncertain if patient slept at all last night. The patient may benefit from formal sleep study. Continue total hold antihypertensives for now Repeat CBC with differential and basic metabolic profile tomorrow. Discussed with the patient's nurse and family.
[2017-03-22] MEDS: LR 1,000 ML IV SCH ×2 (12:30→21:32)
[2017-03-22] MEDS ORDERED: FentaNYL 100 MCG/2 ML INJECTION ONE (14:28)
[2017-03-22] MEDS ORDERED: ROCURONIUM 50 MG/5 ML INJECTION IVP ONE (14:28)
[2017-03-22] MEDS ORDERED: SUCCINYLCHOLINE 20mg/mL 10mL INJECTION ONE (14:28)
[2017-03-22] MEDS ORDERED: PROPOFOL 500 MG/50 ML VIAL ONE (14:28)
--- NOTE | 2017-03-22 14:55 | Operative Note ---
DATE OF OPERATION 1980 SURGEON Dave Esposito MD [employer]ING SPECIALIST Mikel Sanford APRN PREOPERATIVE DIAGNOSIS Marked cellulitis involving suprapubic/mons pubis region. Status post incision and drainage of a small abscess involving left mons pubis region. Cellulitis/ induration failing to improve with broad-spectrum antibiotics. POSTOPERATIVE DIAGNOSES Marked cellulitis involving suprapubic/mons pubis region. Status post incision and drainage of a small abscess involving left mons pubis region. Cellulitis/ induration failing to improve with broad-spectrum antibiotics, intraoperative findings indicative for necrotizing soft tissue infection/necrotizing fasciitis. PROCEDURE Exploration of wound within the left mons pubis with subsequent wide excisional surgical debridement of necrotic subcutaneous tissues and fascia. Area excised approximately 25-30 cm in length x 10 cm in width x 10 cm in depth. ANESTHESIA TIVA/local converted to general anesthetic. EBL AND FLUIDS Please see chart. BRIEF HISTORY/INDICATIONS Mr. Estrada is a 37-year-old gentleman whom I saw a little over a week ago in our hospital as the result of a small wound involving the left groin crease. The patient is morbidly obese. He was recently diagnosed with diabetes mellitus and had a significantly elevated blood sugar. The patient was stabilized and was discharged from our facility. Over the course of last weekend the patient was readmitted to our institution as the result of an increasing infection involving the suprapubic region. The patient was seen over the course of the weekend by one of my surgical colleagues. The patient was found to have a small abscess involving the left mons pubis region that was incised and drained. I did assume care of the patient earlier this week. From a physical examination standpoint as well as from a laboratory and clinical standpoint, the patient did not appear to have evidence for necrotizing fasciitis. He was not tachycardic. He was afebrile. He did not have marked leukocytosis. The patient was begun on broad-spectrum antibiotics. His cellulitis and induration has failed to improve significantly. I did broaden his antibiotics after reviewing his cultures recently. Additionally, I put forth a consult to Dr. Nguyen from an infectious disease standpoint. The patient was made n.p.o. and reexamined today. I did notice increasing purulent drainage from the prior incision and drainage site within the left mons pubis region. The erythema and induration had failed to improve significantly after perhaps 24 hours or more of increasing his antibiotic spectrum. As a result of the above circumstances, it was my recommendation to the patient that we proceed with exploration of his small wound within the left mons pubis region. The patient understood and agreed. DESCRIPTION OF PROCEDURE After informed consent was obtained, the patient was brought to the operative suite and was actually left on his bed from the floor given his severe morbid obesity. The patient's weight is perhaps about 500 pounds. The area of concern within the suprapubic region was then prepped and draped in sterile fashion. Formal time-out was then completed. A hemostat was then placed within the small opening and advanced 10 cm to its full extent into the underlying subcutaneous tissues. 0.25% Marcaine with epinephrine was injected adjacent to the entry site of the hemostat. Next, a 7-8 cm incision was then made adjacent to the entry site of the hemostat. Dissection was continued through perhaps 10- 15 centimeters worth of subcutaneous tissues. Unfortunately, one could then see that the process was significantly more extensive than anticipated. There was frankly necrotic tissue within the depth of the wound that was grasped and removed utilizing Greek forceps. The wound was then continued to be explored and the incision was extended perhaps an additional 10-15 cm in various directions. It then became clear that the infection was more than one could explore under sedation and local anesthetic. The patient was subsequently placed under a general anesthetic. The drapes were left intact. Attention was then focused towards placement of a Garcia catheter. Garcia catheter itself was fairly difficult to place for the penis was not visible given his morbid obesity. Once the catheter had been placed, the drapes were removed and a wider area of his lower abdomen was then prepped and draped in sterile fashion. Next, additional incision was made across the suprapubic region, right mons pubis region and lower abdomen. A total incision perhaps 25-30 cm in length was made involving his lower abdomen. Wound did extend along what appeared to be the spermatic cord structures down towards the scrotal region. The incision was extended overlying this area of tunneling towards the left scrotum. Perhaps the next few hours were spent performing wide excisional surgical debridement of all necrotic subcutaneous tissues and fascia. This was carried out sharply with a knife as well as a surgical curette as well as bluntly at times, utilizing Greek forceps and a hemostat. Eventually, after a fair amount of time, all nonviable tissue was excised. The wound was then irrigated. The wound did appear to go just beneath the external oblique aponeurosis and along the cord structures on the left. Anatomically, given his morbid obesity and marked inflammation, tissue planes were somewhat difficult to ascertain. Once all nonviable tissue had been excised, multiple Kerlix's that had been soaked in a Betadine solution were then placed within the surgical wound throughout. ABD's were then placed overlying the surgical wound. The patient was awakened from his anesthetic and sent back to the ICU once deemed in stable condition. Additionally, it should be noted that Mikel Sanford APRN, was present throughout the entire case and played a pivotal role in providing assistance and exposure during the course of the procedure. BULMARO
--- NOTE | 2017-03-22 16:15 | General Surgery Procedure Note ---
Date of Procedure: 03/22/17 Surgeon: Carlos Medical Coordinator Pesticide Use: Mikel Sanford APRN Postoperative Diagnosis: Alex's Gangrene Procedure: Groin wound exploration with excisional debridement of of subcutaneous tissue, necrotic tissue, and drainage of subcutaneous abscess. Estimated Blood Loss: See Anesthesia Record. Pathology: none sent
[2017-03-22] MEDS ORDERED: MORPHINE SULFATE 10 MG/ML VIAL IVP PRN (16:39)
[2017-03-22] MEDS ORDERED: ONDANSETRON 4 MG/2 ML INJECTION IVP PRN (16:39)
[2017-03-22] MEDS: FentaNYL 100 MCG/2 ML INJECTION IVP PRN ×2 (16:40→16:47)
--- NOTE | 2017-03-22 17:35 | Anesthesia Postoperative Note ---
- Date and Time Date: 03/22/17 Time: 17:30 - Status Patient Participated in Evaluation: Patient Participated in Person Vital Signs: Temperature 97.2 F 03/22/17 16:56 Pulse Rate 69 03/22/17 16:55 Respiratory Rate 16 03/22/17 16:55 Blood Pressure 108/56 03/22/17 16:55 Pulse Oximetry 96 03/22/17 16:55 Respiratory Function: Airway Patent, Regular Respirations Cardiovascular Function: Regular Pulse Mental Status: Alert and Oriented Pain Intensity: 7 (patient on [facility] pump) Hydration: IV Infusing Complications During Recover: None Apparent - Follow-Up Instructions Instructions: Per Surgeon
[2017-03-22] MEDS: MORPHINE PCA 30 MG/30 ML SYRINGE IV PRN (20:08)
[2017-03-22] MEDS: FLUCONAZOLE PB 200 MG/100 ML BAG IV SCH (21:34)
[2017-03-23] MEDS: MEROPENEM 500 MG in NS 50 ML IV SCH ×3 (01:18→18:59)
[2017-03-23] MEDS: CLINDAMYCIN PB 900 MG/50 ML BAG IV SCH ×3 (02:53→17:49)
[2017-03-23] MEDS: HYDROCODONE/APAP 5mg/325mg TABLET PO PRN (04:19)
[2017-03-23] MEDS: LEVOTHYROXINE 50 MCG TABLET PO SCH (06:02)
[2017-03-23] MEDS: SALINE FLUSH 10ml SYRINGE IVF PRN ×2 (08:40→09:25)
[2017-03-23] MEDS: NS FLUSH BAG 500ml IV PRN (08:41)
[2017-03-23] MEDS: INSULIN GLARGINE 100unit/ml INJECTION SQ SCH ×2 (08:45→20:29)
[2017-03-23] MEDS: INSULIN ASPART 100unit/ml INJECTION SQ SCH ×3 (08:46→17:48)
--- NOTE | 2017-03-23 09:06 | Progress Note ---
- Date 03/23/17 Subjective: Franky is seen this morning in CCU. He is feeling well. He has some pain in his mons pubis area. He has a little bit of scrotal pain off and on. His scrotum is more swollen today compared to 2 days ago per his nurse. He is eating and drinking well. He denies any chest pain or palpitations. He denies any shortness of breath. He has a Garcia catheter in place with good urine output. He did not receive his Lasix yesterday and he feels a little bit more edematous. His Lasix is scheduled for today. RT encouraged him to use the BiPAP at night. He did tolerate it for about 3 hours last night. We'll try for 4 hours tonight. He thinks he does have sleep apnea and will often awaken gasping for breath. He has never had a formal sleep evaluation. Objective Vital signs: Temperature 97.6 F 03/23/17 04:00 Pulse Rate 47 L 03/23/17 03:00 Respiratory Rate 20 03/23/17 06:00 Blood Pressure 112/58 03/23/17 03:00 Pulse Oximetry 98 03/23/17 03:00 Height/Weight/BMI: Height 1.8 m Weight 246 kg Comments: GEN-alert, oriented, no acute distress HEENT-sclera anicteric, oropharynx is moist NECK-supple CV-regular rate and rhythm CHEST-clear to auscultation bilaterally ABD-off, nontender with positive bowel sounds -patient has a wound VAC in the mons pubis area. He has some moderate scrotal edema and erythema. No significant tenderness to touch. EXT-patient has some bilateral inner thigh edema more so on the right than the left. This is somewhat chronic. The area on the right is firm but he states this is not uncommon when is developing more edema. NEURO-nonfocal SKIN-warm and dry, no rashes. Results - Labs CBC & Chem 7: 03/23/17 04:12 03/23/17 04:12 Labs: Bands 9, neutrophils 81. Microbiology Results: Microbiology 03/17/17 18:43 Groin Gram Stain - Final 03/17/17 18:43 Groin Deep Wound Culture - Final Gram Positive Jama Gram Positive Jama#2 03/21/17 15:19 Surgery Site Tissue Gram Stain - Final 03/21/17 15:19 Surgery Site Tissue Surgical Culture - Preliminary No Growth After 1 Day Assessment and Plan (1) Hyperglycemia Current visit: No Status: Acute (2) Groin abscess Current visit: Yes Status: Acute (3) Insulin dependent diabetes mellitus Current visit: Yes Status: Acute Assessment and Plan: Impression Sepsis Cellulitis/abscess/necrosis of soft tissue and fascia mons pubis/right groin- status post Wide surgical debridement of skin, subcutaneous tissue, fascia and additional necrotic tissue in the mons pubis 03/21/2017-return to surgery for more I&D on 03/22/2017 and wound VAC placed Possible hidradenitis suppurativa -patient might benefit from dermatology consult as an outpatient Ugdflhbh-eag-wocsk-blood sugar control is better now, continue to adjust insulin as needed Morbid obesity Chronic lower extremity edema, with increased edema 03/20/2017 per patient Hypertension-blood pressure medications on hold for now as blood pressures are not elevated Possible sleep apnea-trying BiPAP at night. Patient would benefit from formal sleep evaluation versus pulmonology hospital evaluation Hypothyroidism-TSH was elevated here in the hospital yesterday, but the patient had been off of his Synthroid for about 5 days while here in the hospital. Plan Continue meropenem, Diflucan and clindamycin for cellulitis/abscess/necrosis. White count today is 12.4 down from 13.8. Bands are slightly up. No fevers. Continue Lantus and NovoLog with meals. Continue to monitor blood sugars closely and adjust insulin as needed. Continue diabetes education Consult pulmonology on Saturday to see if he can qualify for BiPAP at home BiPAP as needed Continue to hold antihypertensives for now-blood pressures remain borderline low Continue diuretics. Discontinue IV fluids. Repeat CBC with differential and basic metabolic profile tomorrow. Restarted usual home dose of Synthroid. Patient may need a TSH repeat in 4-6 weeks. Continue SCDs. Start Lovenox for DVT prophylaxis if okay with Dr. Gonzalez. DVT Prophylaxis: SCD's GI Prophylaxis: Protonix Resuscitation Status: Full Code - Physician Narrative Narrative: Date: 03/23/17 Time: 0903 Hospital Course Summary Disclaimer: The visit summary below is not to be considered part of the above Progress Note. Hospital Course: 03/19/2017 Wound A&P: Groin and pubic area edematous and red. The anterior wound ribbon gauze is 1/2 out and purulent. There is fibrinous exudate at the base of this wound. The left groin crease PolyMem rope is dislodged and laying loose in the groin crease. The base of the wound ( as best as can been seen) is free of fibrinous exudate and purulence. Both wounds then repacked with ribbon gauze and 4x4 folded into the groin crease. Would rather not use tape on the erythematous skin for fear of make more wounds. Will change the ribbon gauze BID, DC the PolyMem. There is a small "pimple" about 2mm, anterior right thigh, left in tact. Left Buttock dressing removed, 2 fairly superficial skin tears about 1-2mm each that are about 1 cm apart, no drainage. Mepilex placed over these for protection 03/21/2017 Plan Continue meropenem for cellulitis/abscess. Clindamycin was discontinued. He continues on Diflucan IV. Dr. Esposito is planning on taking the patient back for repeat I&D and possible wound VAC placement 03/22/2017. Continue Lantus and NovoLog with meals. Continue to monitor blood sugars closely and adjust insulin as needed. Diabetes education will be ordered. Overnight oximetry on room air last night with 4.5 desaturations per hour. He spent 11 minutes below 89%. RT was uncertain if patient slept at all last night. The patient may benefit from formal sleep study. Continue total hold antihypertensives for now Repeat CBC with differential and basic metabolic profile tomorrow. Discussed with the patient's nurse and family.
[2017-03-23] MEDS: PANTOPRAZOLE 40 MG INJECTION IVP SCH (09:23)
--- NOTE | 2017-03-23 09:40 | General Surgery Progress Note ---
Subjective Patient reports: pain is less (since placing the wound vac), tolerating a regular diet, flatus (last BM was befoe surgery.) Narrative: He is in good spirits. Worried about having a BM with wound vac, reassurance given that it will be no different than except for needing help keeping the Vac hoses out of the way. - Vital Signs Last Vital Signs Temp 97.6 F 03/23/17 04:00 Pulse 47 L 03/23/17 03:00 Resp 20 03/23/17 06:00 BP 112/58 03/23/17 03:00 Pulse Ox 98 03/23/17 03:00 - Laboratory Result Diagrams: 03/23/17 04:12 03/23/17 04:12 - Microbiogy Microbiology 03/17/17 18:43 Groin Gram Stain - Final 03/17/17 18:43 Groin Deep Wound Culture - Final Gram Positive Jama Gram Positive Jama#2 03/21/17 15:19 Surgery Site Tissue Gram Stain - Final 03/21/17 15:19 Surgery Site Tissue Surgical Culture - Preliminary No Growth After 1 Day - Abnormal Exam Abdominal: obese Male: other (vac foam is firm in mons, scrotum softer and less erythemetous than during surgery yesterday.) - Normal Exam General: awake, alert, oriented Cardiovascular: regular rhythm, regular rate Respiratory: clear bilaterally, no labored breathing Abdominal: BS normo active x4, soft, non-tender Psychiatric: normal affect Assessment and Plan (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 Muhammad, feel he is stable, vac is working well, and he can transfer to the surgical floor. Will continue current care and add Miralax daily to prevent constipation. Lovenox 40 mg daily DVT prophylaxis, HOLD on Saturday with plan to return to the OR for debridement of necrotic tissue and replace wound vac. Hospital Course Summary Disclaimer: The visit summary below is not to be considered part of the above Progress Note. Hospital Course: 03/19/2017 Wound A&P: Groin and pubic area edematous and red. The anterior wound ribbon gauze is 1/2 out and purulent. There is fibrinous exudate at the base of this wound. The left groin crease PolyMem rope is dislodged and laying loose in the groin crease. The base of the wound ( as best as can been seen) is free of fibrinous exudate and purulence. Both wounds then repacked with ribbon gauze and 4x4 folded into the groin crease. Would rather not use tape on the erythematous skin for fear of make more wounds. Will change the ribbon gauze BID, DC the PolyMem. There is a small "pimple" about 2mm, anterior right thigh, left in tact. Left Buttock dressing removed, 2 fairly superficial skin tears about 1-2mm each that are about 1 cm apart, no drainage. Mepilex placed over these for protection 03/21/2017 Plan Continue meropenem for cellulitis/abscess. Clindamycin was discontinued. He continues on Diflucan IV. Dr. Esposito is planning on taking the patient back for repeat I&D and possible wound VAC placement 03/22/2017. Continue Lantus and NovoLog with meals. Continue to monitor blood sugars closely and adjust insulin as needed. Diabetes education will be ordered. Overnight oximetry on room air last night with 4.5 desaturations per hour. He spent 11 minutes below 89%. RT was uncertain if patient slept at all last night. The patient may benefit from formal sleep study. Continue total hold antihypertensives for now Repeat CBC with differential and basic metabolic profile tomorrow. Discussed with the patient's nurse and family. 03/23/2016 Surgery/Wound Visited with Dr. Muhammad, feel he is stable, vac is working well, and he can transfer to the surgical floor. Will continue current care and add Miralax daily to prevent constipation. Lovenox 40 mg daily DVT prophylaxis, HOLD on Saturday with plan to return to the OR for debridement of necrotic tissue and replace wound vac.
[2017-03-23] MEDS ORDERED: Bisacodyl EC TAB 5 MG TABLET PO ONE (09:52)
[2017-03-23] MEDS: FUROSEMIDE 80 MG TABLET PO SCH (10:36)
[2017-03-23] MEDS: ENOXAPARIN 40 MG/0.4 ML INJECTION SQ SCH (10:36)
[2017-03-23] MEDS: POLYETHYL GLYCOL 3350 17gm PACKET PO SCH (11:41)
--- NOTE | 2017-03-23 11:41 | Progress Note ---
DATE OF VISIT 03/22/2017 REASON FOR VISIT Covering surgical care for Dr. Esposito. SUBJECTIVE Franky is lying in bed. He had no significant complaints but has had some pain in the area of his debridement. OBJECTIVE The patient was awake and alert, in no acute distress. IMPRESSION Alex's gangrene of the groin. PLAN I did discuss with Franky the need to return to the operating room later this afternoon. I explained a plan for exploration and possible further debridement with potential application of a wound VAC. I did explain the mechanism of action of the wound VAC. His questions about the plan were answered to his satisfaction. BULMARO
--- NOTE | 2017-03-23 13:19 | Pulmonology Consult Note ---
History of Present Illness Consult date: 03/23/17 Requesting physician: Michelle Muhammad Reason for consult: obstructive sleep apnea History of present illness: This is a 37 year old morbidly obese male who is disabled. He does not work. For many years he has had problems with being too sleepy. He falls asleep very easily but awakens frequently gasping for breath. He states he often only gets a few short hours of sleep lying in bed due to this but, falls asleep intermittently during the day while sitting in a chair. He estimates that he sleeps only about 2-3 hours at night, and gets another 3-4 hours during the day. He has headaches at times. He is pretty sure he has sleep apnea but has never been studied. His father is a patient of mine and has O2. Franky states he sometimes uses his father's O2 at night and that this "helps a little. " Franky smokes but not very much and is planning to quit He is hospitalized with the following problems: Sepsis, Cellulitis/abscess/ necrosis of soft tissue and fascia mons pubis/right groin-status post Wide surgical debridement of skin, subcutaneous tissue, fascia and additional necrotic tissue in the mons pubis 03/21/2017-return to surgery for more I&D on 03/22/2017 and wound VAC placed. He has possible hidradenitis suppurativa - patient might benefit from dermatology consult as an outpatient, he has [id number]-blood sugar control is better now, continue to adjust insulin as needed. He is Morbidly obese, he has chronic lower extremity edema, with increased edema 03/20/2017. He has Hypertension-blood pressure medications on hold for now as blood pressures are not elevated. He has hypothyroidism-TSH was elevated here in the hospital yesterday, but the patient had been off of his Synthroid for about 5 days while here in the hospital. Dr Muhammad asked me to see this patient regarding GAVIOTA Review of Systems All systems: reviewed and no additional remarkable complaints except as stated PFSH Patient Stated Medical History Other HEENT Yes: GLASSES Hypertension Yes Diabetes Mellitus Type 2 Yes Hx Renal Disease No MRSA Yes Other Infectious Yes: Staph infection in leg Anesthesia Reactions No Other Behavioral Health Yes: [facility] Medical History (Last Updated 11/12/16 @ 09:35 by Charity Robert Chadwick) Hx of bronchitis (Chronic Medical) 1996 Medical History Updates: DM-. HTN (hypertension). Obesity. Psoriasis. Edema extremities. Allergic rhinitis. GERD (gastroesophageal reflux disease). Candidiasis Surgical History: Esophagus widened - 1980 Family History: Family History (Last Updated 11/12/16 @ 09:37 by Charity Robert [facility]) Father Obesity Mother No known health problems - Social History Smoking status: Current every day smoker Does patient use chewing tobacco?: No Medications Home Medications Medication Instructions Recorded Confirmed Type Aspirin Chewable [ASA] 81 mg PO BID 03/11/17 03/16/17 History Insulin Aspart [NovoLOG] 10 unit SQ TIDWM 03/16/17 03/16/17 History Omeprazole [Prilosec] 20 mg PO DAILY PRN 03/16/17 03/16/17 History Allergies Allergy/AdvReac Type Severity Reaction Status Date / Time Penicillins Allergy Severe Rash Verified 03/17/17 04:22 silver sulfadiazine Allergy Severe Blister Verified 03/17/17 04:22 vancomycin Allergy Intermediate RASH Verified 03/17/17 04:22 Sulfa (Sulfonamide Allergy Mild RASH Verified 03/17/17 04:22 Antibiotics) Exam Vital signs: Temperature 98.0 F 03/23/17 12:00 Pulse Rate 60 03/23/17 12:01 Respiratory Rate 22 03/23/17 12:01 Blood Pressure 111/69 03/23/17 12:01 Pulse Oximetry 96 03/23/17 12:01 - Constitutional no acute distress, morbidly obese - Routine HEENT Exam Head: Present: normocephalic, atraumatic Eye: Present: PERRL. Absent: conjunctival icterus ENT: Present: mucous membranes moist - Routine Neck Exam Present: supple - Routine Respiratory Exam Present: decreased breath sounds, CTA bilaterally - Routine Cardiovascular Exam Present: RRR - Routine Abdominal Exam Present: soft. Absent: guarding - Routine Extremities Exam Present: edema. Absent: cyanosis, clubbing - Routine Skin Exam Comments: wound vac over mons pubis - Routine Psychiatric Exam Present: normal affect, normal thought process Results - Laboratory Findings CBC and BMP: 03/23/17 04:12 03/23/17 04:12 Abnormal lab findings: Abnormal Labs 03/17/17 03/17/17 03/17/17 03:44 03:44 03:44 WBC 14.6 H RBC 4.06 L Hgb 12.2 L D Hct 38.6 L D MCV MCHC MPV 12.8 H Neutrophils % (Manual) 70.0 H Band Neutrophils % Lymphocytes % (Manual) 10.0 L Monocytes % (Manual) 11.0 H Metamyelocytes % Myelocytes % Neutrophils # (Manual) 10.2 H Lymphocytes # (Manual) Monocytes # (Manual) 1.6 H ESR 81 H Sodium 133 L Chloride 96 L Carbon Dioxide Anion Gap Glucose 337 H Calcium 8.3 L D Albumin Globulin Albumin/Globulin Ratio TSH 03/18/17 03/18/17 03/19/17 04:59 04:59 08:28 WBC 11.8 H 12.2 H RBC 4.01 L 4.35 L Hgb 12.3 L 13.3 L Hct 37.8 L 40.9 L MCV MCHC MPV Neutrophils % (Manual) 77.0 H 73.0 H Band Neutrophils % Lymphocytes % (Manual) 7.0 L 12.0 L Monocytes % (Manual) Metamyelocytes % 1.0 H Myelocytes % 1.0 H Neutrophils # (Manual) 9.1 H 8.9 H Lymphocytes # (Manual) 0.8 L Monocytes # (Manual) 1.1 H 1.0 H ESR Sodium Chloride Carbon Dioxide Anion Gap Glucose 291 H Calcium Albumin Globulin Albumin/Globulin Ratio TSH 03/20/17 03/20/17 03/21/17 04:31 04:31 04:03 WBC RBC 4.08 L Hgb 12.0 L Hct 39.2 L MCV MCHC 30.6 L MPV Neutrophils % (Manual) Band Neutrophils % Lymphocytes % (Manual) 18.0 L Monocytes % (Manual) 18.0 H Metamyelocytes % Myelocytes % Neutrophils # (Manual) Lymphocytes # (Manual) Monocytes # (Manual) 2.0 H ESR Sodium Chloride Carbon Dioxide 31 H Anion Gap Glucose 224 H 194 H Calcium 8.3 L Albumin 3.0 L Globulin 3.8 H Albumin/Globulin Ratio 0.8 L TSH 11.90 H 03/21/17 03/22/17 03/22/17 04:03 04:16 04:16 WBC 13.8 H D RBC 4.26 L 3.89 L Hgb 12.7 L 11.7 L Hct 38.4 L MCV MCHC 30.9 L 30.5 L MPV Neutrophils % (Manual) 72.0 H Band Neutrophils % 7.0 H Lymphocytes % (Manual) 17.0 L 14.0 L Monocytes % (Manual) 12.0 H Metamyelocytes % 2.0 H 2.0 H Myelocytes % Neutrophils # (Manual) 9.9 H Lymphocytes # (Manual) Monocytes # (Manual) 1.2 H ESR Sodium Chloride Carbon Dioxide 34 H Anion Gap 3 L Glucose 160 H Calcium 8.2 L Albumin Globulin Albumin/Globulin Ratio TSH 03/23/17 03/23/17 04:12 04:12 WBC 12.4 H RBC 3.67 L Hgb 11.0 L Hct 36.9 L MCV 100.5 H MCHC 29.8 L MPV Neutrophils % (Manual) 81.0 H Band Neutrophils % 9.0 H Lymphocytes % (Manual) 10.0 L Monocytes % (Manual) Metamyelocytes % Myelocytes % Neutrophils # (Manual) 10.0 H Lymphocytes # (Manual) Monocytes # (Manual) ESR Sodium Chloride Carbon Dioxide 33 H Anion Gap Glucose 133 H Calcium 8.0 L Albumin Globulin Albumin/Globulin Ratio TSH - Diagnostic Findings Additional studies: ABG reviewed. PCO2 45 on admission. Assessment and Plan (1) Hypersomnia Status: Acute Current Visit: Yes (2) Obstructive sleep apnea Status: Acute Assessment and plan: Clinically this patient has all the signs and symptoms of obstructive sleep apnea. based on physical examination he is high risk for this syndrome. It is highly likely that if this goes untreated, the patient will suffer all the typical chronic health issues related to untreated GAVIOTA including CHF, cognitive deterioration, HTN, right heart failure. Untreated GAVIOTA is highly associated with recurrent hospitalizations and . Due to the patient's current health insurance plan however, he may be unable to obtain the necessary testing and treatment for his GAVIOTA, as it is an uncovered diagnosis. Perhaps we can arrange for testing and treatment on a felix basis upon discharge. For the time being, we will continue NIPPV at night and prn naps. If discharged to another facility, the NIPPV can most likely be ordered there as well. Current Visit: Yes - Time Spent With Patient Total time spent is greater than 50% in coordination of care (as documented) at patient's floor/unit and/or counseling patient: 25 - 35 minutes
[2017-03-23] MEDS: LR 1,000 ML IV SCH (18:17)
--- NOTE | 2017-03-23 18:30 | Operative Note ---
DATE OF OPERATION 03/22/2017 SURGEON Dave Gonzalez MD INFANTRY OPERATIONS SPECIALIST Mikel Sanford APRN PREOPERATIVE DIAGNOSIS Alex's gangrene. POSTOPERATIVE DIAGNOSES 1. Alex's gangrene. 2. Additional undrained abscess in the left groin. 3. Super morbid obesity with BMI of 75.6. PROCEDURE Groin exploration with excisional debridement of subcutaneous tissue and drainage of subcutaneous abscess. ANESTHESIA General. ASA Class 3 INDICATIONS The patient is a 37-year-old male who had been taken to the operating room yesterday by Dr. Esposito for a groin exploration. 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 He was needing to come back to the operating room today for change of his packing and inspection to see if additional debridement was necessary prior to application of a wound VAC. FINDINGS Along the left aspect of the patient's wound extending towards the left groin crease above the thigh there was a 10 cm tract that contained a significant amount of purulent material. There was another branch of the tract that extended approximately 7 cm inferiorly and towards the skin surface just above the femoral crease. The majority of the wound that had been debrided previously showed fairly healthy subcutaneous fat with minimal additional necrotic tissue that was excised. DESCRIPTION OF PROCEDURE After informed consent was obtained the patient was taken to the operating room. He was kept on his ICU bed and general anesthesia was administered by the anesthesia team. Following this the prior Kerlix packing was removed and the bilateral groins were prepped using Betadine gel. The wound was then inspected and small areas of necrotic tissue were resected with cautery back to healthy bleeding tissue. As exploration moved towards the left there was a pocket of purulent drainage encountered. The tract was determined to be tracking laterally and superiorly from the inferior edge of the wound. The course of the tract was determined by inserting a [place] forceps into the wound. The overlying skin was divided with cautery. The subcutaneous tissue was then divided with cautery until the tract was opened and all the purulent material was evacuated. A side tract was noted to extend inferiorly and tunneled up to the surface of the skin. The second tract was also opened using cautery. This left a triangular portion of skin and subcutaneous fat with very little underlying tissue. This was excised with cautery to improve the shape of the wound for application of a wound VAC. Electrocautery was used to obtain hemostasis within the wound. After careful inspection for hemostasis the case was turned over to the wound team for application of a wound VAC dressing. Please note Mikel Sanford APRN, was present throughout the entire case and offered critical assistance with retraction of the patient's extremely large pannus to expose the deeper tissues of the wound for dissection. BULMARO
[2017-03-23] MEDS: MORPHINE PCA 30 MG/30 ML SYRINGE IV PRN (18:55)
[2017-03-23] MEDS: FLUCONAZOLE PB 200 MG/100 ML BAG IV SCH (19:55)
[2017-03-24] MEDS: CLINDAMYCIN PB 900 MG/50 ML BAG IV SCH ×4 (00:36→23:00)
[2017-03-24] MEDS: MEROPENEM 500 MG in NS 50 ML IV SCH ×2 (01:41→09:47)
[2017-03-24] MEDS: OMEPRAZOLE 20 MG CAPSULE PO SCH (06:10)
[2017-03-24] MEDS: LEVOTHYROXINE 50 MCG TABLET PO SCH (06:10)
[2017-03-24] MEDS: INSULIN ASPART 100unit/ml INJECTION SQ PRN ×3 (06:12→21:06)
[2017-03-24] MEDS: FUROSEMIDE 80 MG TABLET PO SCH (08:28)
[2017-03-24] MEDS: INSULIN ASPART 100unit/ml INJECTION SQ SCH ×3 (08:28→18:30)
[2017-03-24] MEDS: POLYETHYL GLYCOL 3350 17gm PACKET PO SCH ×2 (08:29→21:06)
[2017-03-24] MEDS: INSULIN GLARGINE 100unit/ml INJECTION SQ SCH ×2 (08:31→20:06)
[2017-03-24] MEDS: NS FLUSH BAG 500ml IV PRN (08:31)
[2017-03-24] MEDS: SALINE FLUSH 10ml SYRINGE IVF PRN (08:32)
[2017-03-24] MEDS: ENOXAPARIN 40 MG/0.4 ML INJECTION SQ SCH (08:38)
[2017-03-24] MEDS ORDERED: SENNA + DOCUSATE TABLET PO PRN (12:58)
[2017-03-24] MEDS ORDERED: MEROPENEM 1,000 MG in NS 50 ML IV SCH (13:00)
--- NOTE | 2017-03-24 13:01 | Progress Note ---
- Date 03/24/17 Subjective: Franky is seen today in follow up. He is having a mild increase in pain- he is trying not to use NO EXPERIENCE due to constipation. He admits he is afraid to get up "Worried everything might fall out." Wound vac remains in place- had a significant increase in pain when the canister was emptied earlier today. Is not wanting to take Clayton much due to narcotic effect as well. I did review chart for collateral information. Objective Vital signs: Temperature 97.1 F 03/24/17 11:15 Pulse Rate 58 L 03/24/17 11:15 Respiratory Rate 16 03/24/17 11:15 Blood Pressure 126/71 03/24/17 11:15 Pulse Oximetry 98 03/24/17 11:15 Height/Weight/BMI: Height 1.8 m Weight 247 kg - Constitutional Present: no acute distress, morbidly obese, cooperative - Routine HEENT Exam Head: Present: normocephalic, atraumatic Eye: Present: EOMI, PERRL, normal accommodation ENT: Present: mucous membranes moist - Routine Respiratory Exam Present: decreased breath sounds, CTA bilaterally. Absent: rhonchi, wheezes, crackles - Routine Cardiovascular Exam Present: RRR, S1, S2, no murmur - Routine Abdominal Exam Present: soft, non tender, distended (Mild, soft). Absent: normoactive bowel sounds (Quiet BS x 4 quadrants. ) - Routine Exam Comments: Wound vac in place. thomas- clear yellow - Routine Extremities Exam Present: no edema. Absent: calf tenderness - Routine Musculoskeletal Exam Musculoskeletal: Present: no clubbing or cyanosis, limited range of motion (Due to severe obesity) - Routine Skin Exam Present: intact, dry, warm, wounds - Routine Neurological Exam Present: alert, oriented X3 - Routine Psychiatric Exam Present: cooperative Results - Labs CBC & Chem 7: 03/24/17 03:55 03/24/17 03:55 Microbiology Results: Microbiology 03/21/17 15:19 Surgery Site Tissue Gram Stain - Final 03/21/17 15:19 Surgery Site Tissue Surgical Culture - Preliminary Gram Positive Jama Gram Positive Jama#2 03/17/17 18:43 Groin Gram Stain - Final 03/17/17 18:43 Groin Deep Wound Culture - Preliminary Gram Positive Jama Gram Positive Jama#2 Assessment and Plan (1) Hyperglycemia Current visit: No Status: Acute (2) Groin abscess Current visit: Yes Status: Acute (3) Insulin dependent diabetes mellitus Current visit: Yes Status: Acute Assessment and Plan: Impression Sepsis Cellulitis/abscess/necrosis of soft tissue and fascia mons pubis/right groin- status post Wide surgical debridement of skin, subcutaneous tissue, fascia and additional necrotic tissue in the mons pubis 03/21/2017-return to surgery for more I&D on 03/22/2017 and wound VAC placed Possible hidradenitis suppurativa -patient might benefit from dermatology consult as an outpatient Fxgmschj-chq-dsvyp-blood sugar control is better now, continue to adjust insulin as needed Morbid obesity Chronic lower extremity edema, with increased edema 03/20/2017 per patient Hypertension-blood pressure medications on hold for now as blood pressures are not elevated Possible sleep apnea-trying BiPAP at night. Patient would benefit from formal sleep evaluation versus pulmonology hospital evaluation Hypothyroidism-TSH was elevated here in the hospital yesterday, but the patient had been off of his Synthroid for about 5 days while here in the hospital. Plan: Hospitalist covering for Dr. Rodarte 03/24/17 Continue meropenem, Diflucan and clindamycin for cellulitis/abscess/necrosis. Will increase the Meropenem to 1000mg Q 8 hours due to BMI. He is afebrile- WBC up, but stable. Bandemia slowly improving. Continue Lantus and NovoLog with meals. Continue to monitor blood sugars closely and adjust insulin as needed. Continue diabetes education Consult pulmonology on Saturday to see if he can qualify for BiPAP at home- Dr. Cavanaugh consulted. BiPAP with sleep and PRN. Continue to hold antihypertensives for now-blood pressures remain borderline low Continue diuretics, may need to decrease potassium dosing. Repeat CBC with differential and basic metabolic profile tomorrow. Restarted usual home dose of Synthroid. Patient may need a TSH repeat in 4-6 weeks. Continue SCDs. Start Lovenox for DVT prophylaxis if okay with Dr. Gonzalez.\\ Constipation- increase laxatives. Pain- D/W pt- will start low dose Gabapentin- risks and benefits, reason for use and side effects d/w pt. Hope this will allow him to decrease his narcotic use. DC NO EXPERIENCE soon? 03/24/2017-8:55 PM-I reviewed this chart, the patient history, and the STEM SETTER's/PA 's documented findings as above. We discussed and formulated the assessment and plan as above with the additions below.-Dr. Muhammad The patient was seen this evening in his room. He was on nasal cannula oxygen and sleeping. He awoke fairly easily. He does appear drowsy however. He states his pain from his wounds are fairly well controlled with the NO EXPERIENCE gabapentin. He is eating and drinking okay. Has a Thomas catheter in place. He has not had a bowel movement yet. On exam he is minimally drowsy. Chest is clear to auscultation. Cardiovascular reveals a regular rate and rhythm. Abdomen is soft, obese with positive bowel sounds. Wound VAC is in place in the mons pubis area. He has a couple of small blisters with serous fluid on his upper left calf underneath the tape for his wound VAC. His wound VAC appears to be draining well. Urine output is good. He continues to have edema in the right medial thigh. Feet and pretibial area of the bilateral legs reveal minimal edema. Impression and plan Regarding necrotizing fasciitis-continue current antibiotic regimen. Continue Diflucan. The plan is to return to the OR tomorrow with Dr. Esposito to reevaluate the wound. Continue BiPAP for presumed sleep apnea. He does have hypoxia even on nasal cannula oxygen at night while he sleeps while he is on NO EXPERIENCE pump. Continue diuretics for lower extremity edema. May need a higher dose of diuretics. Recheck CBC and basic metabolic profile tomorrow. DVT Prophylaxis: Lovenox Resuscitation Status: Full Code - Physician Narrative Narrative: Date: 03/24/17 Time: 1258 Hospital Course Summary Disclaimer: The visit summary below is not to be considered part of the above Progress Note. Hospital Course: 03/19/2017 Wound A&P: Groin and pubic area edematous and red. The anterior wound ribbon gauze is 1/2 out and purulent. There is fibrinous exudate at the base of this wound. The left groin crease PolyMem rope is dislodged and laying loose in the groin crease. The base of the wound ( as best as can been seen) is free of fibrinous exudate and purulence. Both wounds then repacked with ribbon gauze and 4x4 folded into the groin crease. Would rather not use tape on the erythematous skin for fear of make more wounds. Will change the ribbon gauze BID, DC the PolyMem. There is a small "pimple" about 2mm, anterior right thigh, left in tact. Left Buttock dressing removed, 2 fairly superficial skin tears about 1-2mm each that are about 1 cm apart, no drainage. Mepilex placed over these for protection 03/21/2017 Plan Continue meropenem for cellulitis/abscess. Clindamycin was discontinued. He continues on Diflucan IV. Dr. Esposito is planning on taking the patient back for repeat I&D and possible wound VAC placement 03/22/2017. Continue Lantus and NovoLog with meals. Continue to monitor blood sugars closely and adjust insulin as needed. Diabetes education will be ordered. Overnight oximetry on room air last night with 4.5 desaturations per hour. He spent 11 minutes below 89%. RT was uncertain if patient slept at all last night. The patient may benefit from formal sleep study. Continue total hold antihypertensives for now Repeat CBC with differential and basic metabolic profile tomorrow. Discussed with the patient's nurse and family. 03/23/2016 Surgery/Wound Visited with Dr. Muhammad, feel he is stable, vac is working well, and he can transfer to the surgical floor. Will continue current care and add Miralax daily to prevent constipation. Lovenox 40 mg daily DVT prophylaxis, HOLD on Saturday with plan to return to the OR for debridement of necrotic tissue and replace wound vac. Plan: Hospitalist covering for Dr. Rodarte 03/23/17 Continue meropenem, Diflucan and clindamycin for cellulitis/abscess/necrosis. Will increase the Meropenem to 1000mg Q 8 hours due to BMI. He is afebrile- WBC up, but stable. Bandemia slowly improving. Continue Lantus and NovoLog with meals. Continue to monitor blood sugars closely and adjust insulin as needed. Continue diabetes education Consult pulmonology on Saturday to see if he can qualify for BiPAP at home- Dr. Cavanaugh consulted. BiPAP with sleep and PRN. Continue to hold antihypertensives for now-blood pressures remain borderline low Continue diuretics, may need to decrease potassium dosing. Repeat CBC with differential and basic metabolic profile tomorrow. Restarted usual home dose of Synthroid. Patient may need a TSH repeat in 4-6 weeks. Continue SCDs. Start Lovenox for DVT prophylaxis if okay with Dr. Gonzalez.\\ Constipation- increase laxatives. Pain- D/W pt- will start low dose Gabapentin- risks and benefits, reason for use and side effects d/w pt. Hope this will allow him to decrease his narcotic use. DC NO EXPERIENCE soon?
[2017-03-24] MEDS: GABAPENTIN 100 MG CAPSULE PO SCH ×2 (14:06→20:06)
[2017-03-24] MEDS: FLUCONAZOLE PB 200 MG/100 ML BAG IV SCH (16:46)
[2017-03-24] MEDS: MEROPENEM 1 GM in NS 100 ML IV SCH (18:05)
[2017-03-25] MEDS: MEROPENEM 1 GM in NS 100 ML IV SCH ×2 (00:10→09:22)
[2017-03-25] MEDS: MORPHINE PCA 30 MG/30 ML SYRINGE IV PRN (02:26)
[2017-03-25] MEDS: NS FLUSH BAG 500ml IV PRN (05:36)
[2017-03-25] MEDS: LEVOTHYROXINE 50 MCG TABLET PO SCH ×2 (05:37→09:08)
[2017-03-25] MEDS: OMEPRAZOLE 20 MG CAPSULE PO SCH ×2 (05:37→09:03)
--- NOTE | 2017-03-25 07:03 | Progress Note ---
DATE OF VISIT 03/24/2017 REASON FOR VISIT Covering surgical care for Dr. Esposito. SUBJECTIVE Franky is doing well. He feels like his pain is better than before his debridement. He is still concerned about having a bowel movement, of having to get up out of bed. He feels he may have problems with the wound VAC. OBJECTIVE Afebrile with stable vitals on room air. GENERAL: The patient is awake, alert, in no acute distress. GENITOURINARY: His wound VAC is in place with a good seal and good compression of the foam. LABORATORY DATA White blood cell count is decreased to 11.1. IMPRESSION 1. Alex's gangrene status post debridement. 2. Super morbid obesity with BMI greater than 70. PLAN 1. Continue wound VAC today. 2. NPO at midnight. 3. Dr. Esposito will be returning tomorrow and will change the wound VAC in the operating room to see if any further debridement is necessary. 4. Continue antibiotics. BULMARO
[2017-03-25] MEDS ORDERED: BISACODYL 10 MG SUPPOSITORY RECTALLY PRN (07:32)
[2017-03-25] MEDS: CLINDAMYCIN PB 900 MG/50 ML BAG IV SCH ×3 (07:37→21:02)
[2017-03-25] MEDS: POLYETHYL GLYCOL 3350 17gm PACKET PO SCH ×2 (08:16→21:07)
[2017-03-25] MEDS: INSULIN ASPART 100unit/ml INJECTION SQ SCH ×3 (08:16→17:30)
[2017-03-25] MEDS ORDERED: Bisacodyl EC TAB 5 MG TABLET PO ONE (08:24)
--- NOTE | 2017-03-25 08:32 | General Surgery Progress Note ---
Subjective Narrative: He is worried that the foam will fall out if he has a BM. Reassurance given that it would take a lot of pulling and work to get the foam to dislodge from the wound. He is requesting a laxative so he can have a BM before surgery "and get cleaned up before surgery." He reports the vac machine gave the nurses trouble, which corresponds with nursing notes. Vac working now and foam nicely compressed. Denies other concerns such as chest pain, SOA, abd pain, nausea, etc. - Vital Signs Last Vital Signs Temp 96.3 F L 03/25/17 07:12 Pulse 55 L 03/25/17 08:13 Resp 16 03/25/17 07:12 BP 128/82 03/25/17 07:12 Pulse Ox 92 03/25/17 07:12 - Laboratory Result Diagrams: 03/25/17 04:07 03/25/17 04:07 - Microbiogy Microbiology 03/21/17 15:19 Surgical-Tissue Fungal Culture - Preliminary 03/17/17 18:43 Groin Gram Stain - Final 03/17/17 18:43 Groin Deep Wound Culture - Final Gram Positive Jama Gram Positive Jama#2 03/21/17 15:19 Surgery Site Tissue Gram Stain - Final 03/21/17 15:19 Surgery Site Tissue Surgical Culture - Preliminary Gram Positive Jama Gram Positive Jama#2 - Abnormal Exam Abdominal: obese Male: other (scrotum softer and less erythemetous than last week, vac foam compressed. 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 Nguyen. Plan return to OR today for further evaluation and vac change. Dulcolax PO to stimulate bowels Hospital Course Summary Disclaimer: The visit summary below is not to be considered part of the above Progress Note. Hospital Course: 03/19/2017 Wound A&P: Groin and pubic area edematous and red. The anterior wound ribbon gauze is 1/2 out and purulent. There is fibrinous exudate at the base of this wound. The left groin crease PolyMem rope is dislodged and laying loose in the groin crease. The base of the wound ( as best as can been seen) is free of fibrinous exudate and purulence. Both wounds then repacked with ribbon gauze and 4x4 folded into the groin crease. Would rather not use tape on the erythematous skin for fear of make more wounds. Will change the ribbon gauze BID, DC the PolyMem. There is a small "pimple" about 2mm, anterior right thigh, left in tact. Left Buttock dressing removed, 2 fairly superficial skin tears about 1-2mm each that are about 1 cm apart, no drainage. Mepilex placed over these for protection 03/21/2017 Plan Continue meropenem for cellulitis/abscess. Clindamycin was discontinued. He continues on Diflucan IV. Dr. Esposito is planning on taking the patient back for repeat I&D and possible wound VAC placement 03/22/2017. Continue Lantus and NovoLog with meals. Continue to monitor blood sugars closely and adjust insulin as needed. Diabetes education will be ordered. Overnight oximetry on room air last night with 4.5 desaturations per hour. He spent 11 minutes below 89%. RT was uncertain if patient slept at all last night. The patient may benefit from formal sleep study. Continue total hold antihypertensives for now Repeat CBC with differential and basic metabolic profile tomorrow. Discussed with the patient's nurse and family. 03/23/2016 Surgery/Wound Visited with Dr. Muhammad, feel he is stable, vac is working well, and he can transfer to the surgical floor. Will continue current care and add Miralax daily to prevent constipation. Lovenox 40 mg daily DVT prophylaxis, HOLD on Saturday with plan to return to the OR for debridement of necrotic tissue and replace wound vac. Plan: Hospitalist covering for Dr. Rodarte 03/23/17 Continue meropenem, Diflucan and clindamycin for cellulitis/abscess/necrosis. Will increase the Meropenem to 1000mg Q 8 hours due to BMI. He is afebrile- WBC up, but stable. Bandemia slowly improving. Continue Lantus and NovoLog with meals. Continue to monitor blood sugars closely and adjust insulin as needed. Continue diabetes education Consult pulmonology on Saturday to see if he can qualify for BiPAP at home- Dr. Cavanaugh consulted. BiPAP with sleep and PRN. Continue to hold antihypertensives for now-blood pressures remain borderline low Continue diuretics, may need to decrease potassium dosing. Repeat CBC with differential and basic metabolic profile tomorrow. Restarted usual home dose of Synthroid. Patient may need a TSH repeat in 4-6 weeks. Continue SCDs. Start Lovenox for DVT prophylaxis if okay with Dr. Gonzalez.\\ Constipation- increase laxatives. Pain- D/W pt- will start low dose Gabapentin- risks and benefits, reason for use and side effects d/w pt. Hope this will allow him to decrease his narcotic use. 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
[2017-03-25] MEDS: INSULIN GLARGINE 100unit/ml INJECTION SQ SCH ×2 (09:03→21:02)
[2017-03-25] MEDS: GABAPENTIN 100 MG CAPSULE PO SCH ×2 (09:03→21:02)
[2017-03-25] MEDS: FUROSEMIDE 80 MG TABLET PO SCH (09:04)
--- NOTE | 2017-03-25 09:12 | Progress Note ---
DATE OF VISIT 03/23/2017 REASON FOR VISIT Covering surgical care for Dr. Esposito. SUBJECTIVE Franky says his pain has been controlled. He has been using the TELECOMMUNICATIONS ENGINEER some but does feel like he gets better relief with Downey. He noted some leak with movement at his wound VAC but the leak re-sealed when he was lying still. OBJECTIVE VITALS: Temperature 98.0. Vital signs stable on room air. GENERAL: The patient is awake, alert, in no acute distress. GENITOURINARY: The wound VAC is in place with a good seal. LABORATORY DATA White blood cell count has decreased to 12.4. IMPRESSION 1. Alex's gangrene status post debridements and application of wound VAC. 1. Super morbid obesity with BMI of 76.6. PLAN 1. Continue Merrem, fluconazole, and clindamycin. 2. Continue wound VAC. 3. Plan to return to the operating room on Saturday. 4. He could be transferred to the floor. See the general surgery progress note by Mikel Sanford APRN. I do agree with her note. BULMARO
--- NOTE | 2017-03-25 09:18 | ID Progress Note ---
Subjective Date: 03/25/17 Subjective: Mr. Estrada states that his pain is relatively well controlled. He also reports that his wound VAC has been alarming, he thinks because it's not sealing correctly. He denies any fevers or chills any nausea or diarrhea. He is scheduled to go back to the operating room today for wound VAC change. He states that he thinks his penicillin allergy might be a rash however he also reports that perhaps his father thought that he was allergic to penicillin because he was. I discussed penicillin with him and he is willing to try Zosyn. Exam Vital Signs: Temperature 96.3 F L 03/25/17 07:12 Pulse Rate 55 L 03/25/17 08:13 Respiratory Rate 16 03/25/17 07:12 Blood Pressure 128/82 03/25/17 07:12 Pulse Oximetry 92 03/25/17 07:12 Height/Weight/BMI: Height 1.8 m Weight 245 kg - Constitutional Present: no acute distress, well nourished, obese - Routine HEENT Exam Head: Present: normocephalic, atraumatic Eye: Present: EOMI, PERRL ENT: Present: mucous membranes moist - Routine Neck Exam Present: supple - Routine Respiratory Exam Present: CTA bilaterally (on O2) - Routine Cardiovascular Exam Present: RRR - Routine Abdominal Exam Present: soft (obese), normoactive bowel sounds, non distended, non tender - Routine Exam Scrotal: Present: swelling Comments: Large wound over mons pubis area, covered with VAC. Some erythema over scrotum , and R thigh which appears to be fading. Garcia in place. - Routine Extremities Exam Present: edema (trace LE). Absent: cyanosis, clubbing - Routine Skin Exam Absent: rash Comments: Wound over groin/mons pubis - Routine Neurological Exam Present: alert, oriented X3, CN II-XII intact. Absent: motor deficit - Routine Psychiatric Exam Present: normal affect, normal thought process Results - Labs CBC & Chem 7: 03/25/17 04:07 03/25/17 04:07 Microbiology Results: Microbiology 03/21/17 15:19 Surgical-Tissue Fungal Culture - Preliminary 03/17/17 18:43 Groin Gram Stain - Final 03/17/17 18:43 Groin Deep Wound Culture - Final Gram Positive Jama Gram Positive Jama#2 03/21/17 15:19 Surgery Site Tissue Gram Stain - Final 03/21/17 15:19 Surgery Site Tissue Surgical Culture - Preliminary Gram Positive Jama Gram Positive Jama#2 Both GPRs are sensitive to Zosyn. Impression: Sepsis secondary to skin source. Alex's gangrene, with L groin abscess, s/p drainage 03/17, 03/21, 03/22/17. Wound culture 03/16 with 2 strains of GPRs, both sensitive to Amox/clavulanate and Zosyn, one is R to cefazolin. Previous wound culture with S. gordonii, GPR and C. albicans Morbid obesity DM II, newly diagnosed, with Hgb A1C>15. Psoriasis Probable hydradenitis suppurativa Tobacco use Questionable PCN, Vanco allergies, also sulfa allergy Recommendation: Will continue Clindamycin for its anti-toxin effects. Will try Zosyn. If he tolerates this, he could potentially be changed to Augmentin on discharge. Continue fluconazole for now. When he's deemed ready for discharge, I'd recommend Augmentin alone, and I can see him in follow up in the wound clinic.
[2017-03-25] MEDS: PIPERACILLIN/TAZOBACTAM 3.375 GM in NS 100 ML IV SCH ×3 (10:04→22:40)
--- NOTE | 2017-03-25 10:24 | Pulmonology Progress Note ---
Subjective Interval history: Pt in bed, states his breathing is ok. Tolerated bipap for 4 hrs last noc. Exam Vital signs: Temperature 96.3 F L 03/25/17 07:12 Pulse Rate 55 L 03/25/17 08:13 Respiratory Rate 16 03/25/17 10:05 Blood Pressure 128/82 03/25/17 07:12 Pulse Oximetry 92 03/25/17 07:12 - Constitutional no acute distress, mild distress, morbidly obese - Routine HEENT Exam Head: Present: normocephalic, atraumatic Eye: Present: EOMI, PERRL ENT: Present: mucous membranes moist - Routine Neck Exam Present: supple, full ROM - Routine Respiratory Exam Present: decreased breath sounds - Routine Cardiovascular Exam Present: RRR, S1, S2, no murmur - Routine Abdominal Exam Present: soft, normoactive bowel sounds - Detailed Abdominal Exam Comments: abdominal wound, WV in place - Routine Extremities Exam Present: no edema, non tender, full ROM - Routine Back/Spine/Pelvis Exam Back/Spine: Present: full ROM - Routine Skin Exam Present: dry, wounds Comments: abd wound - Routine Neurological Exam Present: alert, oriented X3, CN II-XII intact - Routine Psychiatric Exam Present: normal affect, normal thought process - Urinary Catheter Management Urethral Cath placed during this visit: yes Reason for continuing: Prolonged Immobilization Insertion date: 03/21/17 Insertion time: 15:00 Assessment and Plan - Assessment and Plan Hypersomnia Morbid Obesity GAVIOTA Groin abscess - abx per ID Plan: Pt currently on O2 at 2L per NC and tolerating. used bipap last noc f12, 17/09, 40%, Vt 900's wean Ip for comfort. Needs OP PSG but unfortunately his insurance doesn't cover GAVIOTA treatment. Would need felix PSG and bipap. It is highly likely that if this goes untreated, the patient will suffer all the typical chronic health issues related to untreated GAVIOTA including CHF, cognitive deterioration, HTN, right heart failure. Untreated GAVIOTA is highly associated with recurrent hospitalizations and . Continue bipap at [facility] and encourage increase use to 6 hrs. - Time Spent With Patient Total time spent is greater than 50% in coordination of care (as documented) at patient's floor/unit and/or counseling patient: less than 15 minutes
[2017-03-25] MEDS: NS 1,000 ML IV SCH (15:00)
--- NOTE | 2017-03-25 15:28 | Anesthesia Postoperative Note ---
- Date and Time Date: 03/22/17 Time: 08:00 - Status Patient Participated in Evaluation: Patient Participated in Person Vital Signs: Temperature 98.8 F 03/25/17 14:56 Pulse Rate 64 03/25/17 14:56 Respiratory Rate 16 03/25/17 14:56 Blood Pressure 128/62 03/25/17 14:56 Pulse Oximetry 96 03/25/17 14:56 Respiratory Function: Airway Patent Cardiovascular Function: Regular Pulse Mental Status: Alert and Oriented Pain Intensity: 3 Hydration: Taking PO Fluids Complications During Recover: None Apparent - Follow-Up Instructions Instructions: Per Surgeon
--- NOTE | 2017-03-25 15:29 | Anesthesia Preoperative Report ---
Anesthesia Preoperative Record - Date and Time Date: 03/25/17 Preoperative Diagnosis: groin abscess Proposed Procedure: groin wound I&D, wound vac change NPO Since Date: 03/24/17 NPO Since Time: 23:00 Allergies/Adverse Reactions: Allergies Allergy/AdvReac Type Severity Reaction Status Date / Time Penicillins Allergy Severe Rash Verified 03/25/17 06:04 silver sulfadiazine Allergy Severe Blister Verified 03/25/17 06:04 vancomycin Allergy Intermediate RASH Verified 03/25/17 06:04 Sulfa (Sulfonamide Allergy Mild RASH Verified 03/25/17 06:04 Antibiotics) - Vital Signs Vital Signs: Temperature 98.8 F 03/25/17 14:56 Pulse Rate 64 03/25/17 14:56 Respiratory Rate 16 03/25/17 14:56 Blood Pressure 128/62 03/25/17 14:56 Pulse Oximetry 96 03/25/17 14:56 Height and Weight: Height 5 ft 11 in Weight 245 kg - Medications Inpatient Medications: Current Medications Hydrocodone Bitart/Acetaminophen ([place] 5/325) 1 tab PO Q6H PRN PRN Reason: Pain Last Admin: 03/23/17 04:19 Dose: 1 tab Albuterol Sulfate (Proventil Neb (0.083%)) 2.5 mg AEROSOL PRN PRN Bisacodyl (Dulcolax) 10 mg RECTALLY DAILY PRN PRN Reason: Constipation Enoxaparin Sodium (Lovenox) 40 mg SQ DAILY [facility] Last Admin: 03/24/17 08:38 Dose: 40 mg Furosemide (Lasix) 80 mg PO QAM [facility] Last Admin: 03/25/17 09:04 Dose: 80 mg Gabapentin (Neurontin) 200 mg PO BID [facility] Last Admin: 03/25/17 09:03 Dose: 200 mg Glucose (Glutose 15) 37.5 gm PO PRN PRN PRN Reason: Hypoglycemia Fluconazole (Diflucan Premix) 200 mg in 100 mls @ 100 mls/hr IV 1600 [facility] Last Infusion: 03/24/17 17:46 Dose: Infused Clindamycin Phosphate (Cleocin Premix) 900 mg in 50 mls @ 50 mls/hr IV Q8H [facility] Last Infusion: 03/25/17 08:37 Dose: Infused Piperacillin Sod/Tazobactam (Sod 3.375 gm/ Sodium Chloride) 100 mls @ 200 mls/ hr IV Q6H [facility] Last Infusion: 03/25/17 10:34 Dose: Infused Sodium Chloride (Normal Saline) 1,000 mls @ 30 mls/hr IV .Q24H [facility] Last Admin: 03/25/17 15:00 Dose: 30 mls/hr Insulin Aspart (Novolog) 3 - 12 unit SQ SS PRN; Protocol PRN Reason: Hyperglycemia Last Admin: 03/24/17 21:06 Dose: 3 unit Insulin Aspart (Novolog) 14 unit SQ WM [facility] Last Admin: 03/25/17 11:06 Dose: Not Given Insulin Glargine (Lantus) 18 unit SQ BID [facility] Last Admin: 03/25/17 09:03 Dose: 18 unit Ketorolac Tromethamine (Toradol Inj) 30 mg IVP Q6H PRN PRN Reason: Pain Stop: 03/26/17 16:56 Last Admin: 03/22/17 20:15 Dose: 30 mg Levothyroxine Sodium (Synthroid) 50 mcg PO B [facility] Last Admin: 03/25/17 09:08 Dose: 50 mcg Morphine Sulfate (Morphine Sulfate Tugboat Pilot) 30 mg IV PRN PRN; Protocol PRN Reason: Protocol Last Admin: 03/25/17 02:26 Dose: 30 mg Nystatin (Mycostatin) 1 applic TP BID [facility] Last Admin: 03/25/17 09:05 Dose: 1 applic Omeprazole (Prilosec) 20 mg PO ACB [facility] Last Admin: 03/25/17 09:03 Dose: 20 mg Ondansetron HCl (Zofran) 4 mg IVP Q6H PRN PRN Reason: Nausea &/or vomiting Polyethylene Glycol (Miralax) 17 gm PO BID [facility] Last Admin: 03/25/17 08:16 Dose: Not Given [facility] Admin: 03/25/17 09:03 Dose: 20 meq Senna/Docusate Sodium (Senna Plus Tablet) 2 tab PO BID PRN PRN Reason: Constipation Sodium Chloride (Iv Flush) 10 - 80 ml IVF PRN PRN PRN Reason: Flushing Last Admin: 03/24/17 08:32 Dose: 20 ml Sodium Chloride (Normal Saline) 500 ml IV PRN PRN Last Admin: 03/25/17 05:36 Dose: 500 ml Home Medications: Home Medications Medication Instructions Recorded Confirmed Type Aspirin Chewable [ASA] 81 mg PO BID 03/11/17 03/16/17 History Insulin Aspart [NovoLOG] 10 unit SQ TIDWM 03/16/17 03/16/17 History Omeprazole [Prilosec] 20 mg PO DAILY PRN 03/16/17 03/16/17 History Is Patient on Beta Rl?: No - Medical History Respiratory: Reports: Sleep Apnea Cardiovascular: Reports: Hypertension Gastrointestional: Reports: Morbid Obesity DENIES: Nausea or Vomiting Present Renal/Endocrine: Reports: Diabetes Mellitus Type 2, Thyroid Disease Other History: DENIES: Anesthesia Reactions - Surgical History Cardiac Surgeries/Treatments: DENIES: Pacemaker GI Surgery/Treatments: Reports: Other (NARROW ESOPHAGUS; had sx as a baby) Reproductive Surgery/Treatment: DENIES: Mastectomy Anesthesia Reactions: None Hx Family Anesthesia Reaction: No History of Motion Sickness: No - Social History Smoking Status: Current every day smoker Hx Chewing Tobacco Use: No Second Hand Exposure: No Substance Use Type: does not use - Pertinent Findings Laboratory: CBC and BMP 03/25/17 04:07 03/25/17 04:07 BMP 03/25/17 04:07 Sodium 137 Potassium 4.6 Chloride 99 Carbon Dioxide 34 H BUN 11.0 Creatinine 0.9 Glucose 145 H Calcium 8.2 L EKG: Sinus Rhythm - Physical Exam Respiratory Exam: Present: lungs clear, bilateral breath sounds equal ( diminished due to weight) Cardiovascular Exam: Present: regular rate and rhythm - Airway Assessment Mallampati Score: III TMD: 3 Fingerbreadths Neck Extension: good Overall Assessment: may be difficult mask vent, may be difficult intubation - ASA ASA Score: 3 - Plan Anesthesia: General Inhalation Gases (as backup) - Discussion Discussion: Discussed risks/options/alternatives of anesthesia and questions answered. Patient consents. Nursing pain assessment noted. Present for Discussion: parent (mother) Attestation Statement: Prior to the delivery of any anesthetic medication, I examined the patient, developed the plan, obtained the patient's consent and discussed the risk and benefits of the procedure with the patient/guardian. - Additional Information Seen by Anesthesia: Yes
[2017-03-25] MEDS ORDERED: PROPOFOL 500 MG/50 ML VIAL ONE (15:36)
[2017-03-25] MEDS ORDERED: SUCCINYLCHOLINE 20mg/mL 10mL INJECTION ONE (15:36)
[2017-03-25] MEDS ORDERED: FentaNYL 100 MCG/2 ML INJECTION ONE (15:45)
[2017-03-25] MEDS ORDERED: MIDAZOLAM 2mg/2ml INJECTION ONE (15:45)
--- NOTE | 2017-03-25 16:34 | General Surgery Procedure Note ---
Date of Procedure: 03/25/17 Surgeon: Cate Orthopedic Nurse: Mikel Sanford APRN, Other (Sarah Rodriguez RN, CWS for wound vac placement) Postoperative Diagnosis: Alex's Gangrene Procedure: Debridement of necrotic tissue mons pubis and replacement of wound vac Estimated Blood Loss: See Anesthesia Record. Pathology: none sent
[2017-03-25] MEDS: SALINE FLUSH 10ml SYRINGE IVF PRN (18:08)
[2017-03-25] MEDS: FLUCONAZOLE PB 200 MG/100 ML BAG IV SCH (18:09)
--- NOTE | 2017-03-25 20:25 | Anesthesia Postoperative Note ---
- Date and Time Date: 03/25/17 Time: 18:20 - Status Patient Participated in Evaluation: Patient Participated in Person Vital Signs: Temperature 97.0 F 03/25/17 18:00 Pulse Rate 59 L 03/25/17 19:45 Respiratory Rate 20 03/25/17 18:03 Blood Pressure 115/65 03/25/17 19:45 Pulse Oximetry 95 03/25/17 19:45 Respiratory Function: Airway Patent Cardiovascular Function: Regular Pulse Mental Status: Alert and Oriented Pain Intensity: 3 Hydration: Taking PO Fluids Complications During Recover: None Apparent - Follow-Up Instructions Instructions: Per Surgeon
[2017-03-25] MEDS: INSULIN ASPART 100unit/ml INJECTION SQ PRN (23:43)
[2017-03-26] MEDS: CLINDAMYCIN PB 900 MG/50 ML BAG IV SCH ×3 (03:09→18:11)
[2017-03-26] MEDS: PIPERACILLIN/TAZOBACTAM 3.375 GM in NS 100 ML IV SCH ×4 (04:27→21:51)
[2017-03-26] MEDS: NS 1,000 ML IV SCH (04:27)
[2017-03-26] MEDS: OMEPRAZOLE 20 MG CAPSULE PO SCH (05:42)
[2017-03-26] MEDS: LEVOTHYROXINE 50 MCG TABLET PO SCH (05:42)
[2017-03-26] MEDS: INSULIN ASPART 100unit/ml INJECTION SQ PRN ×2 (06:28→17:32)
[2017-03-26] MEDS: MORPHINE PCA 30 MG/30 ML SYRINGE IV PRN (07:12)
[2017-03-26] MEDS: ENOXAPARIN 40 MG/0.4 ML INJECTION SQ SCH (08:19)
[2017-03-26] MEDS: FUROSEMIDE 80 MG TABLET PO SCH (08:19)
[2017-03-26] MEDS: GABAPENTIN 100 MG CAPSULE PO SCH ×2 (08:19→21:50)
[2017-03-26] MEDS: POLYETHYL GLYCOL 3350 17gm PACKET PO SCH ×2 (08:19→21:51)
[2017-03-26] MEDS: INSULIN ASPART 100unit/ml INJECTION SQ SCH ×3 (08:19→18:10)
[2017-03-26] MEDS: INSULIN GLARGINE 100unit/ml INJECTION SQ SCH ×2 (08:20→21:49)
--- NOTE | 2017-03-26 09:28 | Operative Note ---
DATE OF PROCEDURE 03/25/2017 SURGEON Dave Esposito MD [employer] SERV[employer] AGENT Mikel Sanford APRN PREOPERATIVE DIAGNOSIS Personal history for necrotizing fasciitis involving lower abdomen/inguinal region bilaterally. POSTOPERATIVE DIAGNOSIS Personal history for necrotizing fasciitis involving lower abdomen/inguinal region bilaterally. PROCEDURE Exploration of wounds involving lower abdomen and inguinal regions with additional excisional surgical debridement of necrotic subcutaneous tissues and fascia. Wound 40 cm x 4 cm x 10 cm in depth. Area further excised 10 cm x 10 cm or 100 cm2. Application of Instill VAC. ANESTHESIA General endotracheal. EBL AND FLUIDS Please see chart. BRIEF HISTORY/INDICATIONS Mr. Estrada is a 37-year-old morbidly obese diabetic gentleman who has had the misfortune of developing necrotizing fasciitis involving his lower abdomen and inguinal regions. It was recommended to the patient that he be taken back to the operative suite to undergo exploration of this large wound. For completeness, please refer to notes in the patient's chart. DESCRIPTION OF PROCEDURE After informed consent was obtained, the patient was brought to the operative suite and placed on the table in a supine fashion. After establishment of general anesthetic, the wound VAC was then removed. One could see some purulent material coming forth from the left lateral aspect of the wound itself. Wound was prepped and draped in sterile fashion. Formal time-out was then completed. Attention was first focused to the area where one could still see some purulent material coming forth from the lateral aspect of the left wound. This area was carefully inspected and a separate "pocket" of necrotic subcutaneous tissues, fascia and purulent material was obtained. This "pocket" of residual abscess and necrotic tissue extended out laterally from the original incision. Therefore the incision was extended out laterally an additional 8-10 cm and underlying subcutaneous tissue was divided down to this separate area of concern. The necrotic subcutaneous tissue and fascia at this location was then debrided. As stated above this area was about 10 cm x 10 cm. Within the depth of this wound there was a larger subcutaneous vessel that began to bleed. Hemostasis was obtained by placing a [id number] suture of 3-0 Vicryl. The remaining wound was then carefully inspected. There was still some residual necrotic subcutaneous tissue present within the left inguinal region. An area of marked induration of the skin still persisted. An area about 4 cm x 4 cm was additionally excised in this area sharply with a knife and use of electrocautery. Dissection was carried down to normal-appearing subcutaneous tissues. The wound was then continued to be explored throughout. There was some smaller foci of residual necrotic subcutaneous tissues which was further debrided utilizing a surgical curette. No other additional areas of necrotic tissue could be seen. There was no evidence of additional purulent material coming forth from the wound itself. Nursing staff had noted an area of erythema and firmness involving the right medial thigh. This area was also prepped and draped in a sterile fashion as well. Obtained an 18-gauge needle and syringe and the 18-gauge needle was introduced into this area of concern involving the right medial thigh. At no point in time was I able to aspirate any purulent material from within the subcutaneous tissues at this location. The wound was then irrigated. Instill VAC was subsequently applied. Foam was placed throughout the wound followed by Steri-Drape and a track pad. The patient is in the process of awakening from his anesthetic and will be sent back to recovery room once deemed in stable condition. BULMARO
[2017-03-26] MEDS: HYDROCODONE/APAP 5mg/325mg TABLET PO PRN ×2 (11:14→21:50)
--- NOTE | 2017-03-26 15:17 | Pulmonology Progress Note ---
Subjective Interval history: tolerating BIPAP via full facemask at night. states it is helping his sleep quality and he is not as sleepy during the day. Exam Vital signs: Temperature 98.5 F 03/26/17 12:25 Pulse Rate 60 03/26/17 13:56 Respiratory Rate 18 03/26/17 12:40 Blood Pressure 120/70 03/26/17 12:25 Pulse Oximetry 95 03/26/17 12:25 - Constitutional no acute distress, morbidly obese - Routine Respiratory Exam Present: accessory muscle use, decreased breath sounds - Routine Cardiovascular Exam Present: RRR - Urinary Catheter Management Urethral Cath placed during this visit: yes Insertion date: 03/21/17 Insertion time: 15:00 Assessment and Plan (1) Hypersomnia Status: Acute Current Visit: Yes (2) Obstructive sleep apnea Status: Acute Assessment and plan: Pt currently on O2 at 2L per NC and tolerating during the day. used bipap last noc , 17/09, 40%, Needs OP PSG but unfortunately his insurance doesn't cover GAVIOTA treatment. Would need felix PSG and bipap. It is highly likely that if this goes untreated, the patient will suffer all the typical chronic health issues related to untreated GAVIOTA including CHF, cognitive deterioration, HTN, right heart failure. Untreated GAVIOTA is highly associated with recurrent hospitalizations and . Current Visit: Yes - Assessment and Plan Hypersomnia Morbid Obesity GAVIOTA Groin abscess - abx per ID - Time Spent With Patient Total time spent is greater than 50% in coordination of care (as documented) at patient's floor/unit and/or counseling patient: less than 15 minutes
[2017-03-26] MEDS: FLUCONAZOLE PB 200 MG/100 ML BAG IV SCH (16:39)
--- NOTE | 2017-03-26 17:34 | Progress Note ---
DATE 03/25/2017 SUBJECTIVE The patient thinks overall he is doing better. He had surgical debridement of his wound in the left groin by Dr. Gonzalez/Dr. Esposito. He does have a wound VAC in place. Post initial surgical debridement he was transferred to CCU for a couple of days. I have been gone since 03/19/2017, back today and resuming patient's care from the hospitalist program. Dr. Michelle Muhammad did call me this morning and discussed the patient's progress with me while I was away. She is also wanting me to resume care today - we are both on the same page as far as resumption of patient's care is concerned. The patient had been seen by Dr. Dave Esposito and also by Dr. Nguyen, Infectious Disease physician who made some recommendations. The wound culture actually grew on two different occasions, one from the surgical site and one from the groin. They both grew positive lynn 1 and positive rod2. The organism is not known but the sensitivity has been given. Augmentin is a good one to cover both. In the meantime the patient was switched to Zosyn and continues on clindamycin as well as Diflucan for the yeast infection as part of the total infection in the groin area. PHYSICAL EXAM GENERAL: The patient looks comfortable. VITAL SIGNS: Blood pressure at 1945 hours was 115/65 with a pulse of 59, respirations 18, oxygen saturation 95% on oxygen at 4 L/nasal cannula. His pulse actually runs between 51-59. NECK: Supple. CHEST: There is some wheezing at the base of his lungs. CARDIOVASCULAR: Regular rate and rhythm. ABDOMEN: Soft. EXTREMITIES: Edema is unchanged. LABORATORY WBC is now 8.9 which is better than when he got here. Chemistry is essentially unremarkable. Sugar is 150. The patient's blood sugar has run between 143-177. ASSESSMENT 1. Sepsis due to skin infection. 2. Alex's gangrene, left groin abscess. This has been drained on three different occasions. 3. Type II diabetes mellitus - needing insulin. This is newly diagnosed. 4. Severe obesity. 5. Hypertension. 6. History of psoriasis. 7. Chronic lower extremity edema. 8. Bradycardia. PLAN Continue current antibiotic administration by Dr. Rosana Nguyen. Will follow with the surgical team to give us an opinion as to when the patient may go home. The patient is on Lovenox for DVT prophylaxis. MTDD
--- NOTE | 2017-03-26 18:39 | Progress Note ---
DATE 03/26/2017 FINDINGS Mr. Estrada was seen earlier today on rounds. He stated that he had noted some increased tenderness along the left lateral abdominal wall corresponding with his surgical site from yesterday. EXAM VITAL SIGNS: Afebrile, normotensive. ABDOMEN: Soft, nontender. Wound VAC is in place and functioning. LABORATORY/RADIOGRAPHIC EVALUATION The patient had a CBC today and his white count is slightly elevated at 12.3. Hemoglobin is overall stable at 10.8. ASSESSMENT 37-year-old morbidly obese diabetic gentleman with the misfortune developing soft-tissue necrotizing infection involving lower abdomen/inguinal regions. Status post multiple excisional surgical debridements, patient currently doing well. PLAN Will continue utilizing negative wound pressure therapy. Continue broad- spectrum antibiotics. Will plan on returning the patient to the operative suite on for re-exploration of his wounds and additional debridement if indicated. Will reapply VAC at that time. BULMARO
--- NOTE | 2017-03-26 20:50 | Progress Note ---
DATE 03/26/2017 SUBJECTIVE The patient is lying in his bed in room #133 on the surgical floor at [facility] this evening when I saw him on rounds. He doesn't have any new complaints. He fell earlier today. He denies any chest pain. PHYSICAL EXAM VITAL SIGNS: Blood pressure 145/73, respirations 20, pulse 67, temperature 98.2. Oxygen saturation 95% on oxygen at 4 L/nasal cannula. GENERAL: The patient looks comfortable. NECK: Supple. CHEST: Lungs have wheezing throughout. CARDIOVASCULAR: Regular rhythm. No murmur. ABDOMEN: Soft. His left groin abscess has been dressed by Dr. Esposito. EXTREMITIES: Significant edema is unchanged. LABORATORY WBC up to 12,000. Hemoglobin 10.3. Electrolytes show potassium 4.6. Blood sugar 143-177. ASSESSMENT 1. Sepsis due to skin infection. 2. Alex's gangrene, left groin abscess. Again, this has been drained on three different occasions. 3. Type II diabetes mellitus - needing insulin. This is newly diagnosed. Blood sugar is much improved. 4. Severe obesity. This is exogenous. 5. Hypertension. 6. History of psoriasis. 7. Chronic lower extremity edema. 8. Bradycardia. 9. Hypoxia requiring up to 4 L oxygen by nasal cannula. Exact etiology is not clear at this time. PLAN 1. Chest x-ray. 2. Probably need to wean patient off the morphine pump and use oral narcotic analgesic for management of his pain. He is willing to do just that. BULMARO
[2017-03-27] MEDS: CLINDAMYCIN PB 900 MG/50 ML BAG IV SCH ×3 (01:51→18:58)
[2017-03-27] MEDS: NS 1,000 ML IV SCH (03:01)
[2017-03-27] MEDS: PIPERACILLIN/TAZOBACTAM 3.375 GM in NS 100 ML IV SCH ×4 (03:03→21:22)
[2017-03-27] MEDS: MORPHINE PCA 30 MG/30 ML SYRINGE IV PRN (03:53)
[2017-03-27] MEDS: LEVOTHYROXINE 50 MCG TABLET PO SCH (06:54)
[2017-03-27] MEDS: INSULIN ASPART 100unit/ml INJECTION SQ PRN ×2 (06:54→21:20)
[2017-03-27] MEDS: OMEPRAZOLE 20 MG CAPSULE PO SCH (06:54)
--- NOTE | 2017-03-27 08:43 | General Surgery Progress Note ---
Subjective Patient reports: no new complaints, tolerating a regular diet Narrative: He experienced an episode of leg weakness yesterday and needed assistance to get up off the floor. No pain or injury occurred. He is concerned about discharge arrangements, hoping a facility can be found so he can increase strength before he is actually discharged home. He agrees to go off the PHARMACOGNOSIST and try oral pain medication with IV push pain medication as backup. Last bowel movement was prior to surgery on Saturday and he feels that perhaps a little encouragement of his bowels would be helpful. Case management working on discharge options versus swing bed at [facility]. Denies chest pain, shortness of breath, abdominal pain, nausea. Vac has been working well without leaks. - Vital Signs Last Vital Signs Temp 97.1 F 03/27/17 08:00 Pulse 52 L 03/27/17 08:00 Resp 18 03/27/17 08:00 BP 140/80 H 03/27/17 08:00 Pulse Ox 97 03/27/17 08:00 - Laboratory Result Diagrams: 03/28/17 04:37 03/26/17 03:58 - Microbiogy Microbiology 03/21/17 15:19 Surgery Site Tissue Gram Stain - Final 03/21/17 15:19 Surgery Site Tissue Surgical Culture - Preliminary Gram Positive Jaam Gram Positive Jama#2 - Abnormal Exam Abdominal: obese Male: other (wound VAC with foam and placed to track pads with a Y connector. Wound VAC canister with small amount of serosanguineous fluid in it. No indication of leak.) - Normal Exam General: awake, alert, oriented Respiratory: no labored breathing (on room air) Abdominal: BS normo active x4, soft, no guarding, non-tender Male: other (Garcia catheter in place clear yellow urine in bag.) Psychiatric: normal affect, normal mood (except a little discouraged wishing he could be discharged) Assessment and Plan (1) Alex's gangrene in male Current Visit: Yes Status: Acute (2) Groin abscess Current Visit: Yes Status: Acute (3) Insulin dependent diabetes mellitus Current Visit: Yes Status: Acute (4) Sepsis Current Visit: Yes Status: Acute Qualifiers: Sepsis type: sepsis due to unspecified organism Qualified Code(s): A41.9 - Sepsis, unspecified organism (5) Hyperglycemia Current Visit: No Status: Acute Plan: White count back down to normal today at 8.5. Continue current antibiotic therapy. We'll DC PHARMACOGNOSIST, IV fluids, telemetry. PT OT for strengthening, I'm reluctant to DC Garcia until he has better strength to get up to the commode. Return to OR tomorrow for another look at the wound and debridement if needed as well as wound VAC placement. Then likely need to attempt wound VAC replacement on Saturday at bedside with by mouth pain medication. IV pain medication available as backup. Mondays vac replacement at bedside will play significant role in decision-making regarding his ability to be discharged. Hospital Course Summary Disclaimer: The visit summary below is not to be considered part of the above Progress Note. Hospital Course: 03/19/2017 Wound A&P: Groin and pubic area edematous and red. The anterior wound ribbon gauze is 1/2 out and purulent. There is fibrinous exudate at the base of this wound. The left groin crease PolyMem rope is dislodged and laying loose in the groin crease. The base of the wound ( as best as can been seen) is free of fibrinous exudate and purulence. Both wounds then repacked with ribbon gauze and 4x4 folded into the groin crease. Would rather not use tape on the erythematous skin for fear of make more wounds. Will change the ribbon gauze BID, DC the PolyMem. There is a small "pimple" about 2mm, anterior right thigh, left in tact. Left Buttock dressing removed, 2 fairly superficial skin tears about 1-2mm each that are about 1 cm apart, no drainage. Mepilex placed over these for protection 03/21/2017 Plan Continue meropenem for cellulitis/abscess. Clindamycin was discontinued. He continues on Diflucan IV. Dr. Esposito is planning on taking the patient back for repeat I&D and possible wound VAC placement 03/22/2017. Continue Lantus and NovoLog with meals. Continue to monitor blood sugars closely and adjust insulin as needed. Diabetes education will be ordered. Overnight oximetry on room air last night with 4.5 desaturations per hour. He spent 11 minutes below 89%. RT was uncertain if patient slept at all last night. The patient may benefit from formal sleep study. Continue total hold antihypertensives for now Repeat CBC with differential and basic metabolic profile tomorrow. Discussed with the patient's nurse and family. 03/23/2016 Surgery/Wound Visited with Dr. Muhammad, feel he is stable, vac is working well, and he can transfer to the surgical floor. Will continue current care and add Miralax daily to prevent constipation. Lovenox 40 mg daily DVT prophylaxis, HOLD on Saturday with plan to return to the OR for debridement of necrotic tissue and replace wound vac. Plan: Hospitalist covering for Dr. Rodarte 03/23/17 Continue meropenem, Diflucan and clindamycin for cellulitis/abscess/necrosis. Will increase the Meropenem to 1000mg Q 8 hours due to BMI. He is afebrile- WBC up, but stable. Bandemia slowly improving. Continue Lantus and NovoLog with meals. Continue to monitor blood sugars closely and adjust insulin as needed. Continue diabetes education Consult pulmonology on Saturday to see if he can qualify for BiPAP at home- Dr. Cavanaugh consulted. BiPAP with sleep and PRN. Continue to hold antihypertensives for now-blood pressures remain borderline low Continue diuretics, may need to decrease potassium dosing. Repeat CBC with differential and basic metabolic profile tomorrow. Restarted usual home dose of Synthroid. Patient may need a TSH repeat in 4-6 weeks. Continue SCDs. Start Lovenox for DVT prophylaxis if okay with Dr. Gonzalez.\\ Constipation- increase laxatives. Pain- D/W pt- will start low dose Gabapentin- risks and benefits, reason for use and side effects d/w pt. Hope this will allow him to decrease his narcotic use. DC PHARMACOGNOSIST soon? 03/27/2017 Surgery note: White count back down to normal today at 8.5. Continue current antibiotic therapy. We'll DC PHARMACOGNOSIST, IV fluids, telemetry. PT OT for strengthening, I'm reluctant to DC Garcia until he has better strength to get up to the commode. Return to OR tomorrow for another look at the wound and debridement if needed as well as wound VAC placement. Then likely need to attempt wound VAC replacement on Saturday at bedside with by mouth pain medication. IV pain medication available as backup. Mondays vac replacement at bedside will play significant role in decision-making regarding his ability to be discharged.
--- NOTE | 2017-03-27 08:48 | XRay Report ---
Indication: hypoxia PROCEDURE: XR chest 1V: Encounter: Initial Comparison: 05/06/2013 Findings: The examination is slightly expiratory nature which may cause some increased prominence of the interstitial markings. There is prominence of the cardiac silhouette which is probably accentuated by the AP portable technique. No definite lobar consolidation or pleural effusion. Impression: Expiratory exam with mild diffuse interstitial prominence. No lobar consolidation or pleural effusion. .
[2017-03-27] MEDS: GABAPENTIN 100 MG CAPSULE PO SCH ×2 (09:07→21:19)
[2017-03-27] MEDS: POLYETHYL GLYCOL 3350 17gm PACKET PO SCH ×2 (09:08→21:22)
[2017-03-27] MEDS: FUROSEMIDE 80 MG TABLET PO SCH (09:08)
[2017-03-27] MEDS: INSULIN ASPART 100unit/ml INJECTION SQ SCH ×3 (09:09→18:58)
[2017-03-27] MEDS: INSULIN GLARGINE 100unit/ml INJECTION SQ SCH ×2 (09:10→21:21)
[2017-03-27] MEDS: HYDROCODONE/APAP 5mg/325mg TABLET PO PRN ×3 (09:13→21:59)
--- NOTE | 2017-03-27 09:15 | ID Progress Note ---
Subjective Date: 03/27/17 Subjective: He reports that he's doing ok. States that there was some more infected- appearing tissue noted yesterday in surgery. States Dr. Esposito is planning to take him back to OR tomorrow for another debridement and VAC change. He states he's tolerating the Zosyn without problems. No fever. Exam Vital Signs: Temperature 97.1 F 03/27/17 08:00 Pulse Rate 52 L 03/27/17 08:00 Respiratory Rate 03/27/17 08:00 Blood Pressure 140/80 H 03/27/17 08:00 Pulse Oximetry 97 03/27/17 08:00 Height/Weight/BMI: Height 1.8 m Weight 251 kg - Constitutional Present: no acute distress, well nourished, well developed, obese - Routine HEENT Exam Head: Present: normocephalic, atraumatic Eye: Present: EOMI, PERRL ENT: Present: mucous membranes moist, oropharynx clear, dentition normal - Routine Neck Exam Present: supple - Routine Respiratory Exam Present: CTA bilaterally - Routine Cardiovascular Exam Present: RRR - Routine Abdominal Exam Present: soft, normoactive bowel sounds, non distended, non tender - Routine Exam Comments: wound VAC on mons pubis wound - Routine Extremities Exam Present: edema (trace LE). Absent: cyanosis, clubbing - Routine Skin Exam Absent: rash - Routine Neurological Exam Present: alert, oriented X3, CN II-XII intact. Absent: motor deficit - Routine Psychiatric Exam Present: normal affect, normal thought process Results - Labs CBC & Chem 7: 03/27/17 08:05 03/26/17 03:58 Microbiology Results: Microbiology 03/21/17 15:19 Surgery Site Tissue Gram Stain - Final 03/21/17 15:19 Surgery Site Tissue Surgical Culture - Preliminary Gram Positive Jama Gram Positive Jama#2 03/21/17 15:19 Surgical-Tissue Fungal Culture - Preliminary 03/17/17 18:43 Groin Gram Stain - Final 03/17/17 18:43 Groin Deep Wound Culture - Final Gram Positive Jama Gram Positive Jama#2 Impression: Sepsis secondary to skin source. Alex's gangrene, with L groin abscess, s/p drainage 03/17, 03/21, 03/22/17. Wound culture 1/13 with 2 strains of GPRs, both sensitive to Amox/clavulanate and Zosyn, one is R to cefazolin. Previous wound culture with S. gordonii, GPR and C. albicans Morbid obesity DM II, newly diagnosed, with Hgb A1C>15. Psoriasis Probable hydradenitis suppurativa Tobacco use Questionable PCN, Vanco allergies, also sulfa allergy Recommendation: Will continue Clindamycin for its anti-toxin effects and Zosyn. Planning to change to Augmentin on discharge. Continue fluconazole for now. More debridement possibly tomorrow with VAC change.
[2017-03-27] MEDS: ENOXAPARIN 40 MG/0.4 ML INJECTION SQ SCH (09:16)
--- NOTE | 2017-03-27 10:41 | Pulmonology Progress Note ---
Subjective Interval history: Pt in bed, states he used the bipap for 6 hrs last noc and tolerating. No new issues and off O2. Exam Vital signs: Temperature 97.1 F 03/27/17 08:00 Pulse Rate 52 L 03/27/17 08:00 Respiratory Rate 18 03/27/17 08:00 Blood Pressure 140/80 H 03/27/17 08:00 Pulse Oximetry 97 03/27/17 08:00 - Constitutional no acute distress, morbidly obese - Routine HEENT Exam Head: Present: normocephalic, atraumatic Eye: Present: EOMI, PERRL ENT: Present: mucous membranes moist - Routine Neck Exam Present: supple, full ROM, trachea midline - Routine Respiratory Exam Present: decreased breath sounds - Routine Cardiovascular Exam Present: RRR, no murmur - Routine Abdominal Exam Present: soft, normoactive bowel sounds - Routine Extremities Exam Present: edema, non tender, full ROM - Routine Back/Spine/Pelvis Exam Back/Spine: Present: full ROM - Routine Skin Exam Present: dry, wounds Comments: WV in place - Routine Neurological Exam Present: alert, oriented X3, CN II-XII intact - Routine Psychiatric Exam Present: normal affect, normal thought process - Urinary Catheter Management Urethral Cath placed during this visit: yes Reason for continuing: Prolonged Immobilization Insertion date: 03/21/17 Insertion time: 15:00 Assessment and Plan - Assessment and Plan Hypersomnia Morbid Obesity GAVIOTA Groin abscess - abx per ID Plan: Pt currently on RA and tolerating well. Using bipap at [facility], settings f12, 17/7, 40%, Vt 700-1000, wean IP to 15. Needs OP PSG but unfortunately his insurance doesn't cover GAVIOTA treatment. Would need felix PSG and bipap. It is highly likely that if this goes untreated, the patient will suffer all the typical chronic health issues related to untreated GAVIOTA including CHF, cognitive deterioration, HTN, right heart failure. Untreated GAVIOTA is highly associated with recurrent hospitalizations and . CXR with basilar atelectasis noted, will order IS. - Time Spent With Patient Total time spent is greater than 50% in coordination of care (as documented) at patient's floor/unit and/or counseling patient: less than 15 minutes
[2017-03-27] MEDS: SALINE FLUSH 10ml SYRINGE IVF PRN (15:42)
[2017-03-27] MEDS: NS FLUSH BAG 500ml IV PRN (15:42)
[2017-03-27] MEDS: FLUCONAZOLE PB 200 MG/100 ML BAG IV SCH (16:47)
--- NOTE | 2017-03-27 18:35 | Progress Note ---
DATE OF SERVICE 03/27/2017 FINDINGS Mr. Estrada denied significant abdominal pain today. Patient states that yesterday his "legs did give out on him" while he was trying to get to the bathroom. There were three staff members present who did help him to the floor. They were unable, however, to apparently completely stop his fall given his marked obesity of 500 pounds. The patient denied any significant pain as a result of this "fall." PHYSICAL EXAM VITAL SIGNS: Afebrile, normotensive. ABDOMEN: Soft, nontender. Wound VAC is in place and functioning. ASSESSMENT 37-year-old diabetic gentleman who is morbidly obese. Patient status post multiple excisional surgical debridements and application of wound VAC secondary to necrotizing soft tissue infection involving lower abdomen. The patient remains stable. PLAN Return to the OR tomorrow for exploration of wound and additional debridement as indicated and reapplication of wound VAC. BULMARO
[2017-03-28] MEDS: CLINDAMYCIN PB 900 MG/50 ML BAG IV SCH ×3 (02:08→18:55)
[2017-03-28] MEDS: PIPERACILLIN/TAZOBACTAM 3.375 GM in NS 100 ML IV SCH ×4 (03:14→22:13)
[2017-03-28] MEDS: HYDROCODONE/APAP 5mg/325mg TABLET PO PRN (04:38)
[2017-03-28] MEDS: OMEPRAZOLE 20 MG CAPSULE PO SCH (05:55)
[2017-03-28] MEDS: LEVOTHYROXINE 50 MCG TABLET PO SCH (05:59)
[2017-03-28] MEDS: GABAPENTIN 100 MG CAPSULE PO SCH ×2 (08:25→22:13)
[2017-03-28] MEDS: FUROSEMIDE 80 MG TABLET PO SCH (08:25)
[2017-03-28] MEDS: INSULIN ASPART 100unit/ml INJECTION SQ SCH ×3 (08:28→18:54)
[2017-03-28] MEDS: INSULIN GLARGINE 100unit/ml INJECTION SQ SCH ×2 (08:28→22:14)
[2017-03-28] MEDS: POLYETHYL GLYCOL 3350 17gm PACKET PO SCH ×2 (08:29→22:14)
--- NOTE | 2017-03-28 11:43 | Pulmonology Progress Note ---
Subjective Interval history: Pt. resting comfortably in bed. States he only used bipap for a couple of hours last night, states it's more comfortable with the setting change. On room air. Denies any SOB, cough, sputum. Pt. to go back to OR later this afternoon. Exam Vital signs: Temperature 96.1 F L 03/28/17 08:34 Pulse Rate 59 L 03/28/17 08:34 Respiratory Rate 18 03/28/17 08:34 Blood Pressure 134/84 03/28/17 08:34 Pulse Oximetry 95 03/28/17 08:34 - Constitutional no acute distress, morbidly obese, cooperative - Routine HEENT Exam Head: Present: normocephalic, atraumatic Eye: Present: EOMI, PERRL ENT: Present: mucous membranes moist - Routine Neck Exam Present: supple, full ROM, trachea midline - Routine Respiratory Exam Present: wheezes, distant breath sounds Comments: Faint expiratory wheezes - Routine Cardiovascular Exam Present: RRR, S1, S2 - Routine Abdominal Exam Present: soft, normoactive bowel sounds, non distended - Routine Extremities Exam Present: edema, non tender, pulses intact, normal capillary refill Comments: Trace edema to BLE - Routine Skin Exam Present: intact, dry, warm, normal turgor, wounds Comments: Wound vac to right groin - Routine Neurological Exam Present: alert, oriented X3 - Routine Psychiatric Exam Present: normal affect, normal thought process, cooperative - Urinary Catheter Management Urethral Cath placed during this visit: yes Urethral indwelling: Yes Reason for continuing: Prolonged Immobilization Insertion date: 03/21/17 Insertion time: 15:00 Assessment and Plan - Assessment and Plan Hypersomnia Morbid Obesity GAVIOTA Groin abscess - abx per ID Plan: Pt currently on RA and tolerating well. Using bipap at [facility], settings f12, 15/, 40%, will continue to monitor. Needs OP PSG but unfortunately his insurance doesn't cover GAVIOTA treatment. Would need felix PSG and bipap. It is highly likely that if this goes untreated, the patient will suffer all the typical chronic health issues related to untreated GAVIOTA including CHF, cognitive deterioration, HTN, right heart failure. Untreated GAVIOTA is highly associated with recurrent hospitalizations and . Continue IS use, at bedside. Slight expiratory wheezes, Albuterol btx PRN can change to scheduled if needed, will follow. - Time Spent With Patient Total time spent is greater than 50% in coordination of care (as documented) at patient's floor/unit and/or counseling patient: less than 15 minutes
--- NOTE | 2017-03-28 14:33 | Wound Care Progress Note ---
Wound Management - Wound Left Buttock Wound Type: abcess old Wound Present on Admission?: Yes Wound Bed Appearance: Beefy Red Tunneling: No Undermining: No Drainage Description: Serous Drainage Amount: Scant Drainage Odor: No Odor Dressing Status: Changed Primary Dressing: Foam Dressing (Pt has had this spot off and on for years, no current sign of infection just noted a small scab. Covered with foam drsg.) Microbiology: Microbiology 03/21/17 15:19 Surgery Site Tissue Gram Stain - Final 03/21/17 15:19 Surgery Site Tissue Surgical Culture - Final Gram Positive Jama Gram Positive Jama#2 Anaerobic Gram-Negative Jama
--- NOTE | 2017-03-28 14:34 | Wound Care Progress Note ---
Wound Management - Patient Status Premedicated Prior to Dressing Change: No - Wound Right Posterior Thigh Wound Type: Moisture Associated Dermatitis Wound Present on Admission?: Yes Tunneling: No Undermining: No Drainage Description: Serous Drainage Amount: Scant Drainage Odor: No Odor Dressing Status: Changed Primary Dressing: Foam Dressing Dressing Change Date: 03/28/17 Dressing Change Time: 14:34 Dressing Change Patient Tolerance: Tolerated Well (Pt has large folds where this skin look wet and abraided.) Microbiology: Microbiology 03/21/17 15:19 Surgery Site Tissue Gram Stain - Final 03/21/17 15:19 Surgery Site Tissue Surgical Culture - Final Gram Positive Jama Gram Positive Jama#2 Anaerobic Gram-Negative Jama
[2017-03-28] MEDS ORDERED: PROPOFOL 500 MG/50 ML VIAL ONE (15:05)
[2017-03-28] MEDS ORDERED: SUCCINYLCHOLINE 20mg/mL 10mL INJECTION ONE (15:06)
[2017-03-28] MEDS: LR 1,000 ML IV SCH ×2 (15:21→22:14)
[2017-03-28] MEDS ORDERED: FentaNYL 250 MCG/5 ML INJECTION ONE (15:47)
[2017-03-28] MEDS ORDERED: DiphenhydrAMINE 50 MG/ML INJECTION ONE (16:03)
[2017-03-28] MEDS ORDERED: DEXAMETHASONE 4 MG/ML INJECTION ONE (16:04)
--- NOTE | 2017-03-28 16:29 | General Surgery Procedure Note ---
Date of Procedure: 03/28/17 Surgeon: Cate Animal Sticker: Mikel Sanford APRN, Other (Sarah Rodriguez RN, CWS for wound vac placement) Postoperative Diagnosis: Alex's Gangrene Procedure: wound exploration and debridement necrotic issue mons pubis area, placement of wound vac Estimated Blood Loss: See Anesthesia Record. Pathology: none sent
[2017-03-28] MEDS: FentaNYL 100 MCG/2 ML INJECTION IVP PRN ×2 (16:57→17:13)
--- NOTE | 2017-03-28 17:09 | Anesthesia Postoperative Note ---
- Date and Time Date: 03/28/17 Time: 17:08 - Status Patient Participated in Evaluation: Patient Participated in Person Vital Signs: Temperature 97.3 F 03/28/17 16:42 Pulse Rate 86 03/28/17 16:42 Respiratory Rate 22 03/28/17 16:42 Blood Pressure 168/88 H 03/28/17 16:42 Pulse Oximetry 90 03/28/17 16:42 Respiratory Function: Airway Patent, Regular Respirations Cardiovascular Function: Regular Pulse Mental Status: Alert and Oriented Pain Intensity: 3 Hydration: IV Infusing Complications During Recover: None Apparent - Follow-Up Instructions Instructions: Per Surgeon
[2017-03-28] MEDS ORDERED: MORPHINE SULFATE 4mg INJECTION IVP PRN (17:21)
[2017-03-28] MEDS: NS FLUSH BAG 500ml IV PRN (17:41)
[2017-03-28] MEDS: FLUCONAZOLE PB 200 MG/100 ML BAG IV SCH (17:41)
[2017-03-28] MEDS: KETOROLAC 30 MG/ML INJECTION IVP PRN (18:13)
[2017-03-28] MEDS: Oxycodone/Acetaminophen 5/325 1 TAB PO PRN (18:48)
[2017-03-28] MEDS: INSULIN ASPART 100unit/ml INJECTION SQ PRN (22:39)
[2017-03-29] MEDS: CLINDAMYCIN PB 900 MG/50 ML BAG IV SCH ×3 (01:51→19:37)
[2017-03-29] MEDS: PIPERACILLIN/TAZOBACTAM 3.375 GM in NS 100 ML IV SCH ×3 (03:13→17:05)
[2017-03-29] MEDS: Oxycodone/Acetaminophen 5/325 1 TAB PO PRN ×4 (04:57→22:31)
[2017-03-29] MEDS: LR 1,000 ML IV SCH ×2 (05:47→19:59)
[2017-03-29] MEDS: OMEPRAZOLE 20 MG CAPSULE PO SCH (06:12)
[2017-03-29] MEDS: LEVOTHYROXINE 50 MCG TABLET PO SCH (06:12)
[2017-03-29] MEDS: INSULIN ASPART 100unit/ml INJECTION SQ PRN (06:21)
[2017-03-29] MEDS: ENOXAPARIN 40 MG/0.4 ML INJECTION SQ SCH (08:29)
[2017-03-29] MEDS: GABAPENTIN 100 MG CAPSULE PO SCH ×2 (08:30→21:27)
[2017-03-29] MEDS: INSULIN ASPART 100unit/ml INJECTION SQ SCH ×3 (08:31→18:40)
[2017-03-29] MEDS: FUROSEMIDE 80 MG TABLET PO SCH (08:31)
[2017-03-29] MEDS: POLYETHYL GLYCOL 3350 17gm PACKET PO SCH ×2 (08:32→21:28)
[2017-03-29] MEDS: INSULIN GLARGINE 100unit/ml INJECTION SQ SCH ×2 (08:33→21:27)
--- NOTE | 2017-03-29 08:45 | ID Progress Note ---
Subjective Date: 03/29/17 Subjective: The patient reports that he is doing well. He states that there was a problem with his wound VAC yesterday. He states that it was running on the battery and uses a power cord. I think this problem has now been resolved. Also, per records I note that he had a controlled fall when he was trying to go to the bathroom. He reports to me that there was no signs of further infection noted yesterday with his wound VAC change. He is waiting to hear about the possibility of swingbed/rehab. Exam Vital Signs: Temperature 96.0 F L 03/29/17 03:28 Pulse Rate 54 L 03/29/17 03:28 Respiratory Rate 16 03/29/17 03:28 Blood Pressure 162/91 H 03/29/17 03:28 Pulse Oximetry 97 03/29/17 03:28 Height/Weight/BMI: Height 1.8 m Weight 249 kg - Constitutional Present: no acute distress, morbidly obese - Routine HEENT Exam Head: Present: normocephalic, atraumatic Eye: Present: EOMI, PERRL ENT: Present: mucous membranes moist, dentition normal - Routine Neck Exam Present: supple - Routine Respiratory Exam Present: CTA bilaterally (on O2) - Routine Cardiovascular Exam Present: RRR - Routine Abdominal Exam Present: soft, normoactive bowel sounds, non distended, non tender - Routine Exam Comments: Wound VAC in groin area, with some moderate erythema - Routine Extremities Exam Absent: cyanosis, clubbing, edema - Routine Skin Exam Present: wounds (mons pubis area). Absent: rash Comments: PICC site ok - Routine Neurological Exam Present: alert, oriented X3, CN II-XII intact. Absent: motor deficit - Routine Psychiatric Exam Present: normal affect Results - Labs CBC & Chem 7: 03/29/17 04:20 03/29/17 04:20 Microbiology Results: Microbiology 03/21/17 15:19 Surgery Site Tissue Gram Stain - Final 03/21/17 15:19 Surgery Site Tissue Surgical Culture - Final Gram Positive Jama Gram Positive Jama#2 Anaerobic Gram-Negative Jama 03/21/17 15:19 Surgical-Tissue Fungal Culture - Preliminary 03/17/17 18:43 Groin Gram Stain - Final 03/17/17 18:43 Groin Deep Wound Culture - Final Gram Positive Jama Gram Positive Jama#2 Impression: Sepsis secondary to skin source. Alex's gangrene, with L groin abscess, s/p drainage 03/17, 03/21, 03/22/17. Wound culture 03/16 with 2 strains of GPRs, both sensitive to Amox/clavulanate and Zosyn, one is R to cefazolin. Previous wound culture with S. gordonii, GPR and C. albicans Morbid obesity DM II, newly diagnosed, with Hgb A1C>15. Psoriasis Probable hydradenitis suppurativa Tobacco use Questionable PCN, Vanco allergies, also sulfa allergy Recommendation: Continue Zosyn and fluconazole. Continue wound care. I suspect he'll need continued inpatient care for awhile before he can be discharged home safely. Will request that PCN allergy be removed from his chart.
--- NOTE | 2017-03-29 09:32 | Operative Note ---
DATE OF SERVICE: 03/28/2017 SURGEON Dave Esposito MD TANK SETTER HELPER Heidi Sanford, CARLEY PREOPERATIVE DIAGNOSIS Personal history for necrotizing soft tissue infection involving lower abdomen/ inguinal regions. POSTOPERATIVE DIAGNOSIS Personal history for necrotizing soft tissue infection involving lower abdomen/ inguinal regions. PROCEDURE Exploration of 40 cm wound involving lower abdomen/inguinal regions with additional excisional surgical debridement of necrotic subcutaneous tissues and application of wound vac. ANESTHESIA General endotracheal. EBL AND FLUIDS Please see chart. BRIEF HISTORY/INDICATIONS Mr. Estrada is a 37-year-old morbidly obese gentleman who has had the misfortune of developing a necrotizing soft tissue infection involving his lower abdomen and inguinal regions. He has undergone multiple surgical debridements and application of wound vacs. It was recommended to the patient that he return to the operative suite today for exploration of his wound. For completeness please refer to notes included in the patient's chart. DESCRIPTION OF PROCEDURE After informed consent was obtained the patient was brought to the operative suite and placed on the table in a supine fashion. After the establishment of general anesthetic, the previously placed wound vac was removed. The area of concern involving the lower abdomen and inguinal regions was then prepped and draped in a sterile fashion. Formal time-out was then completed. The wound was then carefully explored throughout its 40-cm length. Fortunately. there were no residual "pockets" of purulent material, nor was there any evidence for significant residual necrosis. There were a few small foci of some residual necrotic subcutaneous tissues which were sharply debrided utilizing a surgical curette as well as Croatian forceps. Once all nonviable subcutaneous tissue had been debrided, attention then focused towards application of a wound vac. Area debrided was fairly minimal, likely on the order of an area about 5 cm x 5 cm total. After the wound had been carefully explored throughout, attention was directed toward application of wound vac. Black foam was placed throughout the entire wound bed. Steri-Drape was applied. A track pad was then attached to the Steri-Drape and subsequently attached to the wound vac. The patient is in the process of awakening from his anesthetic and will be sent back to the recovery room once deemed in stable condition. [facility]ITAL[facility]est[facility]
--- NOTE | 2017-03-29 10:16 | Pulmonology Progress Note ---
Subjective Interval history: Pt in bed working with PT/OT. States he was out after surgery last noc so didn' t use his bipap last noc. Otherwise no SOB noted and no cough, using his IS hourly. Exam Vital signs: Temperature 96.0 F L 03/29/17 03:28 Pulse Rate 54 L 03/29/17 03:28 Respiratory Rate 16 03/29/17 03:28 Blood Pressure 162/91 H 03/29/17 03:28 Pulse Oximetry 97 03/29/17 03:28 - Constitutional no acute distress, morbidly obese - Routine HEENT Exam Head: Present: normocephalic, atraumatic Eye: Present: EOMI, PERRL ENT: Present: mucous membranes moist - Routine Neck Exam Present: supple, full ROM, trachea midline - Routine Respiratory Exam Present: decreased breath sounds - Routine Cardiovascular Exam Present: RRR, S1, S2, no murmur - Routine Abdominal Exam Present: soft, normoactive bowel sounds, wound Comments: WV in place - Routine Extremities Exam Present: edema, non tender, full ROM - Routine Back/Spine/Pelvis Exam Back/Spine: Present: full ROM - Routine Skin Exam Present: intact, dry - Routine Neurological Exam Present: alert, oriented X3, CN II-XII intact - Routine Psychiatric Exam Present: normal affect, normal thought process, cooperative - Urinary Catheter Management Urethral Cath placed during this visit: yes Urethral indwelling: Yes Reason for continuing: Prolonged Immobilization Insertion date: 03/21/17 Insertion time: 15:00 Assessment and Plan - Assessment and Plan Hypersomnia Morbid Obesity GAVIOTA Groin abscess - abx per ID Plan: Pt currently on RA and tolerating well. Bipap at noc but didn't use last noc, settings f12, 15/09, 40%, will continue to monitor. Needs OP PSG but unfortunately his insurance doesn't cover GAVIOTA treatment. Would need felix PSG and bipap. It is highly likely that if this goes untreated, the patient will suffer all the typical chronic health issues related to untreated GAVIOTA including CHF, cognitive deterioration, HTN, right heart failure. Untreated GAVIOTA is highly associated with recurrent hospitalizations and . Continue IS use, at bedside. - Time Spent With Patient Total time spent is greater than 50% in coordination of care (as documented) at patient's floor/unit and/or counseling patient: less than 15 minutes
[2017-03-29] MEDS: FLUCONAZOLE PB 200 MG/100 ML BAG IV SCH (17:51)
--- NOTE | 2017-03-29 18:21 | Progress Note ---
DATE 03/27/2017 ERI Wilkins doesn't have any new complaints at this time. PHYSICAL EXAM VITAL SIGNS: Blood pressure 139/67, pulse 66, temperature 98.3, respirations 18 , oxygen saturation 98% on room air. GENERAL: The patient looks comfortable. NECK: Supple. CHEST: Lungs have wheezing diffusely. CARDIOVASCULAR: Regular rate and rhythm. ABDOMEN: Soft. EXTREMITIES: Edema unchanged. Wound as per Dr. Esposito is dressed so I could not really see it. LABORATORY WBC 8.5, hemoglobin 10.5. Chemistry: Blood sugar 122-185. ASSESSMENT 1. Sepsis due to skin infection. 2. Alex's gangrene, left groin abscess. This is being monitored by Dr. Esposito as well as Dr. Nguyen, Infectious Disease. 3. Type 2 diabetes mellitus needing insulin. Blood sugar is much improved. 4. Severe obesity, exogenous. Long-term goals discussed. 5. Hypertension. 6. History of psoriasis. 7. Chronic lower extremity edema. 8. Bradycardia - improved. 9. Hypoxia - improving. I suspect may be mild respiratory depression from the narcotics/analgesics FOOD AND BEVERAGE CHECKER pump. PLAN Continue current medications. Wean off FOOD AND BEVERAGE CHECKER pump as per surgery team. MTDD
--- NOTE | 2017-03-29 18:29 | Progress Note ---
DATE 03/28/2017 SUBJECTIVE Mr. Estrada does not have any complaints. He thinks his pain overall is well controlled with gabapentin and oral Thoreau. He is not requesting any additional medication at this time. Dr. Esposito/surgical team continue to work with the patient on a regular basis. PHYSICAL EXAM VITAL SIGNS: Blood pressure 154/82, pulse 66, respirations 20, oxygen saturation 94% on oxygen at 3 L/nasal cannula. LABORATORY WBC 9.1, hemoglobin 10.4. Blood sugar is running 122-150. ASSESSMENT 1. Sepsis due to skin infection. 2. Alex's gangrene, left groin abscess. 3. Type II diabetes mellitus needing insulin. Sugars are improved. 4. Severe obesity - unchanged. Long-term goals have been discussed. 5. Hypertension. 6. History of psoriasis. 7. Hypoxia - still needing 2-3 L oxygen. 8. Chronic leg edema. 9. Bradycardia. PLAN Continue current regimen. Follow with the general surgery team and Dr. Nguyen, Infectious Disease. BULMARO
--- NOTE | 2017-03-29 20:06 | Progress Note ---
DATE 03/29/2017 SUBJECTIVE Franky seems to be happier. He said the baclofen is working better. It is not making him drowsy or sleepy like the [place]. His pain level is about the same. It is manageable at this time. We are still working on logistics of where he needs to stay to complete antibiotics. That is being worked up and is in progress by Case Management. PHYSICAL EXAM VITAL SIGNS: Blood pressure 142/80, pulse 61, temperature 96.1, oxygen saturation 92% on room air. GENERAL: The patient looks comfortable and is more cheerful. NECK: Supple. CHEST: Lungs are clear. No wheezing today. CARDIOVASCULAR: Regular rate and rhythm. ABDOMEN: Soft. EXTREMITIES: Edema as previously dictated. ASSESSMENT 1. Sepsis due to skin infection. 2. Alex's gangrene, left groin abscess, status post surgical intervention on multiple occasions. 3. Type 2 diabetes mellitus needing insulin. Blood sugar continues to improve. 4. Severe obesity, unchanged. 5. Hypertension. 6. History of psoriasis. No significant flare-up at this time. 7. Hypoxia, resolved. The patient is now on room air. 8. Chronic leg edema due to venous insufficiency. 9. Bradycardia, resolved. PLAN Continue current regimen as per ski edge painter, Dr. Nguyen of Infectious Disease, Dr. Espoisto, General Surgery, nursing care as well as Case Management team. BULMARO
[2017-03-29] MEDS: NS FLUSH BAG 500ml IV PRN (21:28)
[2017-03-29] MEDS: PIPERACILLIN/TAZOBACTAM 3.375 GM in NS 50 ML IV SCH (21:33)
[2017-03-30] MEDS: CLINDAMYCIN PB 900 MG/50 ML BAG IV SCH ×3 (01:35→17:45)
[2017-03-30] MEDS: PIPERACILLIN/TAZOBACTAM 3.375 GM in NS 50 ML IV SCH ×4 (02:43→21:09)
[2017-03-30] MEDS: Oxycodone/Acetaminophen 5/325 1 TAB PO PRN ×3 (04:52→17:48)
[2017-03-30] MEDS: LEVOTHYROXINE 50 MCG TABLET PO SCH (06:22)
[2017-03-30] MEDS: OMEPRAZOLE 20 MG CAPSULE PO SCH (06:22)
[2017-03-30] MEDS: INSULIN ASPART 100unit/ml INJECTION SQ SCH ×3 (08:28→17:44)
[2017-03-30] MEDS: INSULIN GLARGINE 100unit/ml INJECTION SQ SCH ×2 (08:31→21:09)
[2017-03-30] MEDS: FUROSEMIDE 80 MG TABLET PO SCH (08:32)
[2017-03-30] MEDS: POLYETHYL GLYCOL 3350 17gm PACKET PO SCH ×2 (08:32→21:10)
[2017-03-30] MEDS: ENOXAPARIN 40 MG/0.4 ML INJECTION SQ SCH (08:32)
[2017-03-30] MEDS: GABAPENTIN 100 MG CAPSULE PO SCH ×2 (08:33→21:09)
--- NOTE | 2017-03-30 12:31 | Progress Note ---
DATE OF SERVICE 03/30/2017 FINDINGS Franky today was without complaints. He was in good spirits. EXAM VITAL SIGNS: Afebrile, normotensive. Please refer to EMR. ABDOMEN: Soft, nontender. Wound VAC is in place and functioning without difficulty. LABORATORY/RADIOGRAPHIC EVALUATION The patient had a CBC today that was unremarkable. White count is stable at 8.6. Hemoglobin is overall stable at 10.1. ASSESSMENT 37-year-old obese diabetic gentleman with history for necrotizing soft tissue infection/fasciitis involving lower abdomen. Patient clinically doing well. PLAN Continue with current care at this time. Will attempt to perform VAC change at bedside with use of intravenous narcotics for pain control. MTDD
[2017-03-30] MEDS: FLUCONAZOLE PB 200 MG/100 ML BAG IV SCH (16:16)
[2017-03-31] MEDS: CLINDAMYCIN PB 900 MG/50 ML BAG IV SCH ×3 (01:29→17:39)
[2017-03-31] MEDS: PIPERACILLIN/TAZOBACTAM 3.375 GM in NS 50 ML IV SCH ×4 (02:36→21:09)
[2017-03-31] MEDS: Oxycodone/Acetaminophen 5/325 1 TAB PO PRN ×4 (03:54→23:16)
[2017-03-31] MEDS: LEVOTHYROXINE 50 MCG TABLET PO SCH (06:22)
[2017-03-31] MEDS: OMEPRAZOLE 20 MG CAPSULE PO SCH (06:22)
[2017-03-31] MEDS: INSULIN ASPART 100unit/ml INJECTION SQ SCH ×3 (08:10→17:38)
[2017-03-31] MEDS: GABAPENTIN 100 MG CAPSULE PO SCH ×2 (08:11→21:09)
[2017-03-31] MEDS: INSULIN GLARGINE 100unit/ml INJECTION SQ SCH ×2 (08:11→21:09)
[2017-03-31] MEDS: ENOXAPARIN 40 MG/0.4 ML INJECTION SQ SCH (08:11)
[2017-03-31] MEDS: POLYETHYL GLYCOL 3350 17gm PACKET PO SCH ×2 (08:11→21:10)
[2017-03-31] MEDS: FUROSEMIDE 80 MG TABLET PO SCH (08:12)
[2017-03-31] MEDS: NS FLUSH BAG 500ml IV PRN (09:21)
[2017-03-31] MEDS: SALINE FLUSH 10ml SYRINGE IVF PRN ×2 (09:23→15:20)
[2017-03-31] MEDS: FLUCONAZOLE PB 200 MG/100 ML BAG IV SCH (16:09)
[2017-04-01] MEDS: SALINE FLUSH 10ml SYRINGE IVF PRN (02:51)
[2017-04-01] MEDS: CLINDAMYCIN PB 900 MG/50 ML BAG IV SCH ×3 (02:51→18:59)
[2017-04-01] MEDS: PIPERACILLIN/TAZOBACTAM 3.375 GM in NS 50 ML IV SCH ×4 (03:55→20:31)
[2017-04-01] MEDS: LEVOTHYROXINE 50 MCG TABLET PO SCH ×2 (06:22→09:22)
[2017-04-01] MEDS: OMEPRAZOLE 20 MG CAPSULE PO SCH (06:22)
--- NOTE | 2017-04-01 08:03 | Progress Note ---
DATE 03/30/2017 (Please note this is a late dictation from morning rounds.) ERI Wilkins actually was awake, watching TV when I came to the room around 6:10 this morning. He doesn't have any complaint at all actually. He said he feels better. PHYSICAL EXAMINATION VITAL SIGNS: Based on the 04:00 recording: blood pressure 136/85, pulse - range of 47 to 57, respiration 20, temperature 96.3, O2 sat 93% on room air. NECK: Supple. CHEST: Lungs are clear. CARDIOVASCULAR: Regular rate and rhythm. ABDOMEN: Soft. EXTREMITIES: Edema is unchanged. WOUND: As per Wound Team - Dr. Esposito and group. LAB Hemoglobin stable at 10.1. White blood count is down to 8.6. Blood sugar is running between 115 and 178. ASSESSMENT 1. Sepsis due to skin infection. 2. Alex's gangrene with multiple surgical intervention. 3. Type 2 diabetes mellitus needing insulin. Blood sugar has improved significantly. 4. Severe obesity. This is unchanged. This is chronic. 5. Hypertension. Blood pressure overall is acceptable. 6. History of psoriasis. No significant clinical flare-up at this time. 7. Chronic leg edema due to chronic venous insufficiency. 8. Bradycardia. That continues to be an issue. PLAN Will continue current regimen. MTDD
--- NOTE | 2017-04-01 08:29 | Progress Note ---
DATE OF VISIT 03/31/2017 FINDINGS Mr. Estrada was sleeping upon entering his room this morning. I did not awaken him. Wound vac was in place and functioning. I did review lab work today consisting of a CBC. White count remains stable at 7.6. Hemoglobin is stable at 10.2. ASSESSMENT 37-year-old morbidly obese diabetic gentleman who has had the misfortune of developing a necrotizing soft tissue infection involving lower abdomen. Patient doing well. PLAN Will plan on, tomorrow, proceeding with a vac change at bedside. Will go ahead and make the patient n.p.o. tonight in case he is unable to tolerate vac change and will require sedation/anesthetic. Otherwise, will continue with current care. BULMARO
--- NOTE | 2017-04-01 09:01 | ID Progress Note ---
Subjective Date: 04/01/17 Subjective: Mr. Estrada continues to do well. He denies any problems tolerating his antibiotic. He denies any fevers or chills nausea vomiting or diarrhea. His pain appears to be well controlled at the moment. He anticipates a wound VAC change this afternoon. Exam Vital Signs: Temperature 96.2 F L 04/01/17 08:00 Pulse Rate 52 L 04/01/17 08:00 Respiratory Rate 16 04/01/17 08:00 Blood Pressure 126/80 04/01/17 08:00 Pulse Oximetry 95 04/01/17 08:00 Height/Weight/BMI: Height 1.8 m Weight 244 kg - Constitutional Present: no acute distress, well nourished, well developed, morbidly obese - Routine HEENT Exam Head: Present: normocephalic, atraumatic Eye: Present: EOMI, PERRL ENT: Present: mucous membranes moist - Routine Neck Exam Present: supple - Routine Respiratory Exam Present: CTA bilaterally - Routine Cardiovascular Exam Present: RRR - Routine Abdominal Exam Present: soft, normoactive bowel sounds, non distended, non tender - Routine Exam Comments: wound VAC over mons pubis area, thomas catheter in - Routine Extremities Exam Present: edema (trace). Absent: cyanosis, clubbing - Routine Skin Exam Present: intact. Absent: rash Comments: PICC site ok - Routine Neurological Exam Present: alert, oriented X3, CN II-XII intact. Absent: motor deficit - Routine Psychiatric Exam Present: normal affect, normal thought process Results - Labs CBC & Chem 7: 04/01/17 03:53 03/29/17 04:20 Microbiology Results: Microbiology 03/21/17 15:19 Surgical-Tissue Fungal Culture - Preliminary 03/21/17 15:19 Surgery Site Tissue Gram Stain - Final 03/21/17 15:19 Surgery Site Tissue Surgical Culture - Final Gram Positive Jama Gram Positive Jama#2 Anaerobic Gram-Negative Jama 03/17/17 18:43 Groin Gram Stain - Final 03/17/17 18:43 Groin Deep Wound Culture - Final Gram Positive Jama Gram Positive Jama#2 Impression: Sepsis secondary to skin source. Alex's gangrene, with L groin abscess, s/p debridement 03/17, 03/21, 03/22, , 03/28. Wound culture 03/16 with 2 strains of GPRs, both sensitive to Amox/ clavulanate and Zosyn, one is R to cefazolin. Previous wound culture with S. gordonii, GPR and C. albicans Morbid obesity DM II, newly diagnosed, with Hgb A1C>15. Psoriasis Probable hydradenitis suppurativa Tobacco use Questionable Vanco allergy, also sulfa allergy Recommendation: Continue Zosyn and fluconazole. Continue wound care. I suspect he'll need continued inpatient care for awhile before he can be discharged home safely.
[2017-04-01] MEDS: GABAPENTIN 100 MG CAPSULE PO SCH ×2 (09:22→20:29)
[2017-04-01] MEDS: FUROSEMIDE 80 MG TABLET PO SCH (09:22)
[2017-04-01] MEDS: ENOXAPARIN 40 MG/0.4 ML INJECTION SQ SCH (09:22)
[2017-04-01] MEDS: INSULIN ASPART 100unit/ml INJECTION SQ SCH ×3 (09:23→18:56)
[2017-04-01] MEDS: POLYETHYL GLYCOL 3350 17gm PACKET PO SCH ×2 (09:24→20:13)
[2017-04-01] MEDS: INSULIN GLARGINE 100unit/ml INJECTION SQ SCH ×2 (09:53→20:30)
--- NOTE | 2017-04-01 12:00 | Pulmonology Progress Note ---
Subjective Interval history: Pt in bed working, states he used his bipap last noc and tole well. On RA and no SOB or cough noted, using his IS hourly. Awaiting WV change today. Exam Vital signs: Temperature 96.2 F L 04/01/17 08:00 Pulse Rate 52 L 04/01/17 08:00 Respiratory Rate 16 04/01/17 08:00 Blood Pressure 126/80 04/01/17 08:00 Pulse Oximetry 95 04/01/17 08:00 - Constitutional no acute distress, morbidly obese - Routine HEENT Exam Head: Present: normocephalic, atraumatic Eye: Present: EOMI, PERRL ENT: Present: mucous membranes moist - Routine Neck Exam Present: supple, full ROM, trachea midline - Routine Respiratory Exam Present: decreased breath sounds - Routine Cardiovascular Exam Present: RRR, S1, S2, no murmur - Routine Abdominal Exam Present: soft, wound Comments: groin wv - Routine Extremities Exam Present: no edema, non tender - Routine Skin Exam Present: dry, wounds - Routine Neurological Exam Present: alert, oriented X3, CN II-XII intact - Urinary Catheter Management Urethral Cath placed during this visit: yes Urethral indwelling: Yes Insertion date: 03/21/17 Insertion time: 15:00 Assessment and Plan - Assessment and Plan Hypersomnia Morbid Obesity GAVIOTA Groin abscess - abx per ID Plan: Pt currently on RA and tolerating well. Bipap at [facility], settings f12, 15/09, 40%, will continue to monitor. Needs OP PSG but unfortunately his insurance doesn't cover GAVIOTA treatment. Would need felix PSG and bipap. It is highly likely that if this goes untreated, the patient will suffer all the typical chronic health issues related to untreated GAVIOTA including CHF, cognitive deterioration, HTN, right heart failure. Untreated GAVIOTA is highly associated with recurrent hospitalizations and . Continue IS use, at bedside. - Time Spent With Patient Total time spent is greater than 50% in coordination of care (as documented) at patient's floor/unit and/or counseling patient: less than 15 minutes
[2017-04-01] MEDS: FLUCONAZOLE PB 200 MG/100 ML BAG IV SCH (16:12)
[2017-04-01] MEDS ORDERED: IBUPROFEN 800 MG TABLET PO ONE (16:30)
[2017-04-01] MEDS ORDERED: Oxycodone/Apap 10/325 1 TAB PO ONE (16:30)
--- NOTE | 2017-04-01 17:09 | Progress Note ---
DATE 03/31/2017 ERI Wilkins was awake when I entered his room. He does not have any new complaints at this time. Denies hemoptysis. No chest pain. PHYSICAL EXAM VITAL SIGNS: Blood pressure 151/79, pulse 53, respiratory rate 18. GENERAL: The patient looks comfortable, in no acute distress. NECK: Supple. CHEST: Lungs are clear to auscultation bilaterally. CARDIOVASCULAR: Regular rate and rhythm. ABDOMEN: Soft. EXTREMITIES: Edema is unchanged. NEUROLOGIC: Grossly intact. LABORATORY Hemoglobin 10.2. MCV 101.2. ASSESSMENT 1. Sepsis due to skin infection. 2. Alex's gangrene with multiple surgical interventions. 3. Type II diabetes mellitus - needing insulin. Blood sugar numbers are looking great. 4. Severe obesity which is chronic. 5. Hypertension. Blood pressure well controlled. 6. Chronic leg edema due to chronic venous insufficiency. 7. Bradycardia. PLAN Continue current IV antibiotics. Continue recommendations as per general surgeon Dr. Esposito as well as Dr. Michelle Nguyen, Infectious Disease. Placement for a long-term care facility for outpatient antibiotics and management of wound has been in progress. [facility]
--- NOTE | 2017-04-01 17:50 | Progress Note ---
DATE OF SERVICE 04/01/2017 FINDINGS Franky was seen this evening on rounds. He was without complaints. EXAM VITAL SIGNS: Afebrile, normotensive. Please refer to EMR. ABDOMEN: Soft, nontender. Wound VAC was removed at the bedside and the wound was carefully inspected. Good granulation tissue throughout. There were some minimal areas less than 1 cm in diameter that did contain some minimal nonviable tissue. This was able to be essentially mechanically debrided with gauze. ASSESSMENT 37-year-old diabetic, obese gentleman with necrotizing soft tissue infection. Patient showing ongoing improvement. PLAN Nursing informed me that he has done better with ambulation. CBC was obtained today and found to be stable. White count was 10.3. Hemoglobin is 7.2. As stated above, wound VAC was able to be completed at the bedside today. The patient was given oral narcotics as well as morphine intravenously. Steri- Drape was removed. Black foam that was within the depth of the wound was removed. Findings were as noted above. The majority of the wound had excellent granulation tissue throughout. New black foam was placed carefully throughout the depth of the wound. Steri-Drape was then reapplied. Track pad was applied. The patient did experience some discomfort during the procedure but overall did well. Will otherwise continue with current care. Will await decision of our rehab unit to see the patient will qualify for additional rehab. BULMARO
--- NOTE | 2017-04-01 17:52 | Wound Care Progress Note ---
Wound Management - Wound Anterior Medial Abdomen Wound Present on Admission?: Yes Length: 8 Width: 40 Depth: 10 Wound Bed Appearance: Beefy Red Ayanna Wound Appearance: [place] Tunneling: No Undermining: No Drainage Description: Sanguineous Drainage Amount: Moderate Drainage Odor: No Odor Dressing Status: Changed Packing Type: Woundvac Sponge Number of Packing Pieces Removed?: 4 Number of Packing Pieces Placed?: 4 Primary Dressing: Transparent Drape Secondary Dressing: Trac Pad Dressing Change Date: 04/01/17 Dressing Change Time: 17:51 Dressing Change Patient Tolerance: Tolerated Well (Pt tolerated procedure at bedside. Dr Esposito, Yisel Vaughn, K Michael, H Afsaneh, Blanco strong.)
--- NOTE | 2017-04-01 20:03 | Progress Note ---
DATE 04/01/2017 ERI Wilkins was lying in bed in room #133 on the surgical floor at [facility] this evening when I saw him. He doesn't voice any specific complaints. He had a little bit of pain earlier and was treated with Percocet which seemed to help. PHYSICAL EXAM VITAL SIGNS: Blood pressure 131/71, pulse 55, respirations 20, oxygen saturation 94 on room air, temperature 97.0. GENERAL: The patient looks comfortable and is cheerful. NECK: Supple. CHEST: Lungs are clear. CARDIOVASCULAR: Regular rate and rhythm. ABDOMEN: Soft. EXTREMITIES: Edema is actually improving. LABORATORY (today) Hemoglobin 10.3. Blood sugar is running between 89-125. ASSESSMENT 1. Sepsis due to skin infection. 2. Alex's gangrene with multiple surgical interventions. 3. Type II diabetes mellitus - needing insulin. Blood sugar is great. 4. Severe obesity which is chronic. 5. Hypertension. Blood pressure well controlled. 6. Chronic leg edema due to chronic venous insufficiency. This is improving with support hose. 7. Bradycardia. The patient remains asymptomatic. PLAN No changes as far as patient's medications today. Will see patient in the morning. Case Management is working on patient placement. We do appreciate her help. BULMARO
[2017-04-02] MEDS: CLINDAMYCIN PB 900 MG/50 ML BAG IV SCH ×3 (02:40→17:29)
[2017-04-02] MEDS: PIPERACILLIN/TAZOBACTAM 3.375 GM in NS 50 ML IV SCH ×4 (03:44→20:30)
[2017-04-02] MEDS: Oxycodone/Acetaminophen 5/325 1 TAB PO PRN ×3 (03:48→17:27)
[2017-04-02] MEDS: LEVOTHYROXINE 50 MCG TABLET PO SCH (06:21)
[2017-04-02] MEDS: OMEPRAZOLE 20 MG CAPSULE PO SCH (06:21)
[2017-04-02] MEDS: INSULIN ASPART 100unit/ml INJECTION SQ SCH ×3 (08:25→18:25)
[2017-04-02] MEDS: INSULIN GLARGINE 100unit/ml INJECTION SQ SCH ×2 (08:25→20:28)
[2017-04-02] MEDS: POLYETHYL GLYCOL 3350 17gm PACKET PO SCH ×2 (08:26→20:29)
[2017-04-02] MEDS: GABAPENTIN 100 MG CAPSULE PO SCH ×2 (08:26→20:29)
[2017-04-02] MEDS: ENOXAPARIN 40 MG/0.4 ML INJECTION SQ SCH (08:26)
[2017-04-02] MEDS: FUROSEMIDE 80 MG TABLET PO SCH (08:26)
--- NOTE | 2017-04-02 11:39 | Pulmonology Progress Note ---
Subjective Interval history: Pt in bed, states he used his bipap last [facility] for 6 hrs and kamala well. On RA and no SOB or cough noted, using his IS hourly. Exam Vital signs: Temperature 97.7 F 04/02/17 11:02 Pulse Rate 63 04/02/17 11:02 Respiratory Rate 18 04/02/17 11:02 Blood Pressure 149/93 H 04/02/17 11:02 Pulse Oximetry 95 04/02/17 11:02 - Constitutional no acute distress, morbidly obese, cooperative - Routine HEENT Exam Head: Present: normocephalic, atraumatic Eye: Present: EOMI, PERRL ENT: Present: mucous membranes moist - Routine Neck Exam Present: supple, full ROM, trachea midline - Routine Respiratory Exam Present: decreased breath sounds - Routine Cardiovascular Exam Present: RRR, S1, S2, no murmur - Routine Abdominal Exam Present: soft, normoactive bowel sounds - Routine Extremities Exam Present: edema, non tender, full ROM - Routine Back/Spine/Pelvis Exam Back/Spine: Present: full ROM - Routine Skin Exam Present: dry, wounds Comments: [place] groin - Routine Neurological Exam Present: alert, oriented X3, CN II-XII intact - Routine Psychiatric Exam Present: normal affect, normal thought process, good judgment - Urinary Catheter Management Urethral Cath placed during this visit: yes Urethral indwelling: Yes Reason for continuing: Prolonged Immobilization Insertion date: 03/21/17 Insertion time: 15:00 Assessment and Plan - Assessment and Plan Hypersomnia Morbid Obesity GAVIOTA Groin abscess - abx per ID Plan: Pt currently on RA and tolerating well. Bipap at [facility], settings f12, 15/7, 40%, Vt 700 and kamala well, will continue to monitor. Needs OP PSG but unfortunately his insurance doesn't cover GAVIOTA treatment. Would need felix PSG and bipap. It is highly likely that if this goes untreated, the patient will suffer all the typical chronic health issues related to untreated GAVIOTA including CHF, cognitive deterioration, HTN, right heart failure. Untreated GAVIOTA is highly associated with recurrent hospitalizations and . Continue IS use, at bedside. - Time Spent With Patient Total time spent is greater than 50% in coordination of care (as documented) at patient's floor/unit and/or counseling patient: less than 15 minutes
[2017-04-02] MEDS: KETOROLAC 30 MG/ML INJECTION IVP PRN (11:52)
[2017-04-02] MEDS: FLUCONAZOLE PB 200 MG/100 ML BAG IV SCH (16:20)
--- NOTE | 2017-04-02 18:09 | Progress Note ---
DATE OF SERVICE 04/02/2017 FINDINGS Mr. Estrada was seen earlier today on rounds. He states that his abdominal pain is markedly improved in comparison to yesterday following his wound VAC change. The patient was without complaints today. EXAM VITAL SIGNS: Afebrile, normotensive. ABDOMEN: Soft. Minimal tenderness along his wound involving his lower abdomen. Wound VAC is in place and functioning. ASSESSMENT 37-year-old diabetic, morbidly obese, gentleman with history for necrotizing fasciitis/soft tissue infection involving lower abdomen. Patient currently doing well. PLAN Later this week, either on or Saturday, it is my plan that we will likely return him back to the operative suite at that time and perform the next VAC change in an operative setting. Will attempt to begin to perform some delayed primary closure of his wounds and additional excisional surgical treatment as indicated. The above plan was discussed the patient. He understood and agreed. BULMARO
[2017-04-03] MEDS: CLINDAMYCIN PB 900 MG/50 ML BAG IV SCH (01:22)
[2017-04-03] MEDS: SALINE FLUSH 10ml SYRINGE IVF PRN (03:04)
[2017-04-03] MEDS: PIPERACILLIN/TAZOBACTAM 3.375 GM in NS 50 ML IV SCH ×3 (03:09→15:38)
[2017-04-03] MEDS: LEVOTHYROXINE 50 MCG TABLET PO SCH (06:38)
[2017-04-03] MEDS: OMEPRAZOLE 20 MG CAPSULE PO SCH (06:38)
[2017-04-03] MEDS: Oxycodone/Acetaminophen 5/325 1 TAB PO PRN (06:40)
--- NOTE | 2017-04-03 08:23 | General Surgery Progress Note ---
Subjective Patient reports: feels better (pain controlled with by mouth pain medications.) , tolerating a regular diet, bowel movement (daily), afebrile, other (he has been up with physical therapy.) Narrative: He states that the wound VAC has a leak unless he is sitting upright then the leak seems to seal off. Canister is currently full and changed. - Vital Signs Last Vital Signs Temp 97.0 F 04/03/17 04:00 Pulse 53 L 04/03/17 04:00 Resp 18 04/03/17 04:00 BP 152/65 H 04/03/17 04:00 Pulse Ox 95 04/03/17 04:00 - Laboratory Result Diagrams: 04/01/17 03:53 04/02/17 03:39 - Abnormal Exam Abdominal: obese Male: other (penis not visible, Garcia in place draining clear yellow fluid.) Additional Abnormal Findings: Wound VAC foam is compressed although the drape on the cephalad border is moist and loose. This drape is removed/cut away and Benzoin then new VAC drape applied. Leak test revealed leaks which were identified and secured with stoma paste in 2 areas and additional drape in other areas. Final leak test showed a good seal. 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 Anticipate return to the OR for additional debridement, possible partial closure , and replacement of wound VAC. Hospital Course Summary Disclaimer: The visit summary below is not to be considered part of the above Progress Note. Hospital Course: 03/19/2017 Wound A&P: Groin and pubic area edematous and red. The anterior wound ribbon gauze is 1/2 out and purulent. There is fibrinous exudate at the base of this wound. The left groin crease PolyMem rope is dislodged and laying loose in the groin crease. The base of the wound ( as best as can been seen) is free of fibrinous exudate and purulence. Both wounds then repacked with ribbon gauze and 4x4 folded into the groin crease. Would rather not use tape on the erythematous skin for fear of make more wounds. Will change the ribbon gauze BID, DC the PolyMem. There is a small "pimple" about 2mm, anterior right thigh, left in tact. Left Buttock dressing removed, 2 fairly superficial skin tears about 1-2mm each that are about 1 cm apart, no drainage. Mepilex placed over these for protection 03/21/2017 Plan Continue meropenem for cellulitis/abscess. Clindamycin was discontinued. He continues on Diflucan IV. Dr. Esposito is planning on taking the patient back for repeat I&D and possible wound VAC placement 03/22/2017. Continue Lantus and NovoLog with meals. Continue to monitor blood sugars closely and adjust insulin as needed. Diabetes education will be ordered. Overnight oximetry on room air last night with 4.5 desaturations per hour. He spent 11 minutes below 89%. RT was uncertain if patient slept at all last night. The patient may benefit from formal sleep study. Continue total hold antihypertensives for now Repeat CBC with differential and basic metabolic profile tomorrow. Discussed with the patient's nurse and family. 03/23/2016 Surgery/Wound Visited with Dr. Muhammad, feel he is stable, vac is working well, and he can transfer to the surgical floor. Will continue current care and add Miralax daily to prevent constipation. Lovenox 40 mg daily DVT prophylaxis, HOLD on Saturday with plan to return to the OR for debridement of necrotic tissue and replace wound vac. Plan: Hospitalist covering for Dr. Rodarte 03/23/17 Continue meropenem, Diflucan and clindamycin for cellulitis/abscess/necrosis. Will increase the Meropenem to 1000mg Q 8 hours due to BMI. He is afebrile- WBC up, but stable. Bandemia slowly improving. Continue Lantus and NovoLog with meals. Continue to monitor blood sugars closely and adjust insulin as needed. Continue diabetes education Consult pulmonology on Saturday to see if he can qualify for BiPAP at home- Dr. Cavanaugh consulted. BiPAP with sleep and PRN. Continue to hold antihypertensives for now-blood pressures remain borderline low Continue diuretics, may need to decrease potassium dosing. Repeat CBC with differential and basic metabolic profile tomorrow. Restarted usual home dose of Synthroid. Patient may need a TSH repeat in 4-6 weeks. Continue SCDs. Start Lovenox for DVT prophylaxis if okay with Dr. Gonzalez.\\ Constipation- increase laxatives. Pain- D/W pt- will start low dose Gabapentin- risks and benefits, reason for use and side effects d/w pt. Hope this will allow him to decrease his narcotic use. DC INVENTORY AND PRICING ASSOCIATE soon? 03/27/2017 Surgery note: White count back down to normal today at 8.5. Continue current antibiotic therapy. We'll DC INVENTORY AND PRICING ASSOCIATE, IV fluids, telemetry. PT OT for strengthening, I'm reluctant to DC Garcia until he has better strength to get up to the commode. Return to OR tomorrow for another look at the wound and debridement if needed as well as wound VAC placement. Then likely need to attempt wound VAC replacement on Saturday at bedside with by mouth pain medication. IV pain medication available as backup. Mondays vac replacement at bedside will play significant role in decision-making regarding his ability to be discharged. 04/03/2017 Bedside VAC change on Saturday 04/01 required IV pain medication and was still quite painful. Anticipate return to the OR for additional debridement, possible partial closure , and replacement of wound VAC.
[2017-04-03] MEDS: INSULIN ASPART 100unit/ml INJECTION SQ SCH ×2 (08:39→12:18)
--- NOTE | 2017-04-03 08:59 | ID Progress Note ---
Subjective Date: 04/03/17 Subjective: Mr. Estrada reports that the bedside VAC change was really painful, but it went ok. Denies any fever, chills, N/V/D or rash. Tolerating abx without problems. Plans noted for returning to OR on Saturday. Exam Vital Signs: Temperature 97.0 F 04/03/17 04:00 Pulse Rate 53 L 04/03/17 04:00 Respiratory Rate 18 04/03/17 04:00 Blood Pressure 152/65 H 04/03/17 04:00 Pulse Oximetry 95 04/03/17 04:00 Height/Weight/BMI: Height 1.8 m Weight 243 kg - Constitutional Present: no acute distress, well nourished, well developed, obese - Routine HEENT Exam Head: Present: normocephalic, atraumatic Eye: Present: EOMI, PERRL ENT: Present: mucous membranes moist, oropharynx clear, dentition normal - Routine Neck Exam Present: supple - Routine Respiratory Exam Present: CTA bilaterally - Routine Cardiovascular Exam Present: RRR - Routine Abdominal Exam Present: soft, normoactive bowel sounds, non distended, non tender. Absent: rebound, guarding - Routine Exam Comments: VAC over groin wound, Garcia in - Routine Extremities Exam Absent: cyanosis, clubbing, edema - Routine Skin Exam Present: intact. Absent: rash - Routine Neurological Exam Present: alert, oriented X3, CN II-XII intact. Absent: motor deficit - Routine Psychiatric Exam Present: normal affect, normal thought process Results - Labs CBC & Chem 7: 04/01/17 03:53 04/02/17 03:39 Microbiology Results: Microbiology 03/21/17 15:19 Surgical-Tissue Fungal Culture - Preliminary 03/21/17 15:19 Surgery Site Tissue Gram Stain - Final 03/21/17 15:19 Surgery Site Tissue Surgical Culture - Final Gram Positive Jama Gram Positive Jama#2 Anaerobic Gram-Negative Jama 03/17/17 18:43 Groin Gram Stain - Final 03/17/17 18:43 Groin Deep Wound Culture - Final Gram Positive Jama Gram Positive Jama#2 Impression: Sepsis secondary to skin/soft tissue source. Alex's gangrene, with L groin abscess, s/p debridement 03/17, 03/21, 03/22, , 03/28. Wound culture 03/16 with 2 strains of GPRs, both sensitive to Amox/ clavulanate and Zosyn, one is R to cefazolin. Previous wound culture with S. gordonii, GPR and C. albicans Morbid obesity DM II, newly diagnosed, with Hgb A1C>15. Psoriasis Probable hydradenitis suppurativa Tobacco use Questionable Vanco allergy, also sulfa allergy Recommendation: Continue current antibiotics. Will change the fluconazole to po and the clindamycin to po. Once he's had a wound VAC change which shows that there is no longer any necrotic-appearing tissue, I'd consider changing the Zosyn to Augmentin. I would recommend 2 weeks of antibiotics after his last debridement. Discussed with Dr. Rodarte.
[2017-04-03] MEDS: FUROSEMIDE 80 MG TABLET PO SCH (09:41)
[2017-04-03] MEDS: GABAPENTIN 100 MG CAPSULE PO SCH (09:41)
[2017-04-03] MEDS: ENOXAPARIN 40 MG/0.4 ML INJECTION SQ SCH (09:41)
[2017-04-03] MEDS: POLYETHYL GLYCOL 3350 17gm PACKET PO SCH (09:42)
[2017-04-03] MEDS: INSULIN GLARGINE 100unit/ml INJECTION SQ SCH (09:42)
[2017-04-03 12:11] VITALS: RESP 20; TEMP 97.5
[2017-04-03] MEDS ORDERED: CLINDAMYCIN 150 MG CAPSULE PO SCH (15:00)
[2017-04-03 15:45] VITALS: BP 162/105; PULSE 63; O2SAT 96
--- NOTE | 2017-04-03 17:20 | Progress Note ---
04/02/2017 ERI Wilkins did not have any complaints when I saw him this evening. He is comfortable with the current management plan. Denies any chest pain, trouble breathing or coughing blood. No chest discomfort. PHYSICAL EXAM GENERAL: The patient looks comfortable. No wheezing. NECK: Supple. CHEST: Lungs are clear. CARDIOVASCULAR: Regular rate and rhythm. ABDOMEN: Soft. EXTREMITIES: Edema is better. LABORATORY None. ASSESSMENT 1. Sepsis due to skin infection - same. 2. Alex's gangrene with multiple surgical interventions in the past. Surgical intervention is scheduled for 04/05/2017. 3. Type II diabetes mellitus - needing insulin. His blood sugar is actually very good. 4. Severe obesity which is chronic. I talked to him that he needs to think about surgical intervention because his weight is over 500 pounds which will shorten his lifespan definitely. He knows this - I had a pretty lengthy discussion with him at this time. Will get him through this acute illness for now and then that will be his next course of action. 5. Hypertension. Blood pressure overall is very acceptable. 6. Chronic leg edema due to chronic renal insufficiency. 7. Bradycardia - stable. Pulse is running between 53-56. PLAN Continue current medications - no changes made. MTDD
[2017-04-04] MEDS ORDERED: FLUCONAZOLE 100 MG TABLET PO SCH (09:00)
--- NOTE | 2017-04-04 09:56 | Discharge Summary ---
FINAL DIAGNOSES 1. Sepsis secondary to skin and soft tissue source. 2. Asymptomatic sinus bradycardia. 3. Alex's gangrene with multiple surgical interventions as stipulated in my previous note. 4. Type 2 diabetes - needing insulin. Blood sugar has been very good. 5. Severe obesity which is chronic. He will need long-term care including bariatric surgical intervention that will be discussed at a later time. 6. Hypertension. Blood pressure overall is well controlled. 7. Chronic leg edema due to chronic venous insufficiency. There is some improvement noted. 8. History of psoriasis which gets aggravated now and then. 9. Chronic tobacco use. CONSULTANTS 1. Dr. Esposito. 2. Dr. Gonzalez. 3. Dr. Michelle Nguyen 4. Case Management. 5. Dr. Dave Cavanaugh, Horticultural Nursery Assistant. CODE STATUS Full Code. REASON FOR ADMISSION The patient is a 37-year-old male who presented to [facility] with a left groin infection of several weeks' duration. He had recent admission for new-onset diabetes mellitus. He has been admitted because he developed fever and chills and the wound has become much bigger since the prior day. He was therefore admitted for wound management with IV antibiotics and surgical consultation and recommendations. PHYSICAL EXAMINATION Patient had a left groin wound infection and redness and abscess noted. HOSPITAL COURSE The patient was admitted to surgical floor and remained there. He was started on broad-spectrum antibiotics. He had multiple surgical debridements in the OR by Dr. Esposito because of the extent of the abscess in the left groin. Consultation was made to Dr. Michelle Nguyen who managed the antibiotic choices throughout the hospitalization. The patient's surgical site culture grew gram- positive rods #1 and #2 as well as anaerobic gram-negative lynn which is the final culture report, sensitive to multiple antibiotics. He has been on Zosyn and clindamycin for quite some time as well as fluconazole for yeast infection. The patient underwent multiple surgical interventions to the wound site. Debridement was carried out on 03/17/2017, 03/21/2017, 03/22/2017, 03/25/2017, 03/28/2017, and one is scheduled for 04/05/2017. Dr. Dave Cavanaugh was consulted due to the patient's evidence of sleep apnea at night. The patient will be scheduled for an official sleep study. The patient has been using BiPAP during the hospitalization which has helped him significantly. This patient at this time is medically stable enough to be transferred. Case Management has done an excellent job trying to locate placement for this patient. As of now patient has been accepted to Inpatient Rehab which is great news. Therefore this patient is going to be transferred to Inpatient Rehab today. Will continue current IV antibiotics which include Zosyn. Dr. Michelle Nguyen has recommended we change fluconazole and clindamycin to oral today. Dr. Nguyen, Dr. Rodarte and Dr. Esposito will continue to follow the patient in the Inpatient Rehab Unit as well. DISMISSAL MEDICATION 1. Albuterol via nebulization q.4h. p.r.n., 1 unit dose. 2. Dulcolax 10 mg rectally p.r.n. constipation. 3 . Clindamycin 450 mg p.o. t.i.d. 4. Lovenox 40 mg subcutaneous daily. 5. Fluconazole 400 mg p.o. daily. 6. Lasix 80 mg p.o. q.a.m. 7. Gabapentin 200 mg p.o. b.i.d. 8. NovoLog 14 units subcutaneous with meals. 9. Lantus 18 units subcutaneous b.i.d. 10. Levothyroxine sodium 50 mcg one tablet daily. 11. Omeprazole 20 mg p.o. a.c. breakfast. 12. Zofran 4 mg IV q.6h. p.r.n. 13. Percocet 5/325 mg 1-2 tablets every 4-5 hours p.r.n. 14. Zosyn 3.375 g IV q.6h. 15. MiraLAX 17 g p.o. b.i.d. schedule. 16. Senna 2 tablets p.o. b.i.d. p.r.n. constipation. DIET: 8520-8740 calorie ADA diet. MTDD
[2017-04-04] MEDS ORDERED: FentaNYL 100 MCG/2 ML INJECTION IVP PRN (14:36)
[2017-04-04] MEDS ORDERED: ONDANSETRON 4 MG/2 ML INJECTION IVP PRN (14:36)
== END 2017-04-03 16:40 | DRG 853 ==
LOC: ED 18:07 → SRG 23:30 → SUATTDRO 23:30 → SRG 03-17 00:10 → CCU 03-21 15:57 → SRG 03-23 13:12
PROVIDERS: ADMIT Internal Medicine; ATTEND Family Medicine

== ENCOUNTER 2017-04-03 17:26 | Inpatient (IN) ==
[2017-04-03] MEDS ORDERED: HYDROCODONE/APAP 5mg/325mg TABLET PO PRN (19:26)
[2017-04-03] MEDS ORDERED: BISACODYL 10 MG SUPPOSITORY RECTALLY PRN (19:26)
[2017-04-03] MEDS ORDERED: ALBUTEROL 2.5mg/3ml (0.083%) NEB AEROSOL PRN (19:26)
[2017-04-03] MEDS ORDERED: GLUCOSE ORAL GEL 40% 37.5gm PO PRN (19:26)
[2017-04-03] MEDS ORDERED: ACETAMINOPHEN 325 MG TABLET PO PRN (19:26)
[2017-04-03] MEDS ORDERED: FALL RISK - PHARMACY CONSULT MC ONE (19:50)
[2017-04-03 20:12] VITALS: BMI 74.4
[2017-04-03] MEDS: INSULIN GLARGINE 100unit/ml INJECTION SQ SCH (21:08)
[2017-04-03] MEDS: TAZOBACTAM IV SCH (21:08)
[2017-04-03] MEDS: PIPERACILLIN IV SCH (21:08)
[2017-04-03] MEDS: CLINDAMYCIN 150 MG CAPSULE PO SCH (21:09)
[2017-04-03] MEDS: ASPIRIN 81 MG CHEWABLE TABLET PO SCH (21:10)
[2017-04-03] MEDS: POLYETHYL GLYCOL 3350 17gm PACKET PO SCH (21:10)
[2017-04-04] MEDS: PIPERACILLIN IV SCH (01:53)
[2017-04-04] MEDS: TAZOBACTAM IV SCH (01:53)
[2017-04-04] MEDS: SALINE FLUSH 10ml SYRINGE IV PRN (01:54)
[2017-04-04] MEDS: Oxycodone/Acetaminophen 5/325 1 TAB PO PRN ×3 (04:50→20:47)
[2017-04-04] MEDS: INSULIN ASPART 100unit/ml INJECTION SQ SCH ×3 (08:56→17:14)
[2017-04-04] MEDS ORDERED: LEVOTHYROXINE 50 MCG TABLET PO SCH (09:00)
[2017-04-04] MEDS: CLINDAMYCIN 150 MG CAPSULE PO SCH ×3 (09:07→20:40)
[2017-04-04] MEDS: FLUCONAZOLE 100 MG TABLET PO SCH (09:07)
[2017-04-04] MEDS: LEVOTHYROXINE 50 MCG TABLET PO SCH (09:08)
[2017-04-04] MEDS: FUROSEMIDE 80 MG TABLET PO SCH (09:08)
[2017-04-04] MEDS: POLYETHYL GLYCOL 3350 17gm PACKET PO SCH ×2 (09:10→20:43)
[2017-04-04] MEDS: PIPERACILLIN/TAZOBACTAM 3.375 GM in NS 50 ML IV SCH ×3 (09:16→20:39)
--- NOTE | 2017-04-04 12:06 | IRU History & Physical Report ---
HPI IRU Date: Date: 04/04/17 Time: 1200 Chief complaint: I'm weak and have a bad infection HPI: Mr. Estrada is a pleasant 37 yo man referred by Dr. Ephraim Rodarte who is also the patient's primary care physician. He has also been cared for by Dr. Dave Esposito while on acute care. He initially presented to the emergency department on 03/11/2017 because of severe weakness. He was going to see his physician but did not think he could make it. He presented with a two-week history of headache, nausea, rhinorrhea, congestion and fatigue along with loose stools. He was able to drive himself to the emergency department. He was found to have a glucose of 785 with sodium 125 and creatinine 1.1 with BUN 24 at the time of admission earlier in March. He did not have diabetic ketoacidosis during that admission. His white count was normal and hemoglobin 15. During that hospitalization he was treated with intravenous insulin and was started on insulin to go home with. He was sent home with NovoLog 10 units with each meal and possibly Lantus 14 units twice daily although that is a bit unclear. He was also seen by Dr. Esposito during that admission because of a lesion in the left groin. Patient states that he has been troubled with boils in his groin for a long time but that this wound Getting bigger and bigger. Dr. Esposito evaluated during the initial admission and did not recommend surgical intervention at that time. He did recommend home dressing changes. He was dismissed from the hospital on March 13. The patient states that the left groin "boil" increased in size initially to golfball size and subsequently to tennis ball size. He developed a fever. He presented back to the emergency department on March 16, 2017 for evaluation. At that time he was admitted to the hospital again. CT scan showed evidence of cellulitis and abscesses in the left groin area. He was seen by Dr. Dvae Gonzalez who was covering for Dr. Esposito. He was taken to surgery on March [address] Gonzalez where a subcutaneous abscess in the left mons pubis was identified. Incision and drainage of the left mons pubis was performed under local anesthetic with 1% lidocaine. At that time wound measurements were 1 x 0.5 x 1 cm deep. There was no tunneling at that time. During the initial admission, culture of groin discharge on March 12, 2017 demonstrated Alvina albicans, Streptococcus Gordonii and other gram-positive lynn. Blood cultures on March 16 were negative 2. Culture from the surgery on March 17 grew two gram-positive rods which were not further identified. From surgery on 03/21/2017, two gram-positive rods were identified along with anaerobic gram-negative lynn. He was seen by Dr. Michelle Nguyen, infectious disease on 03/20/2017. He had been on meropenem and clindamycin previously. She recommended continuing meropenem but stopping clindamycin. At that point he did not seem to have Alex's gangrene. He was taken to surgery by Dr. Dave Esposito on 03/21/2017 for exploration of wound and left mons pubis and subsequent wide excisional surgical debridement of necrotic subcutaneous tissues and fascia. Area excised was about 25-30 cm in length by 10 cm in width by 10 cm in depth. Findings included marked cellulitis involving the suprapubic/mons pubis region along with cellulitis and induration failing to improve with broad-spectrum antibiotics. There was evidence of necrotizing soft tissue infection with necrotizing fasciitis. Clindamycin was added back in and fluconazole was given. He was seen by Dr. Nguyen again on March 22 who recommended continuing fluconazole plus clindamycin plus meropenem. He was also seen by Dr. Cavanaugh for hypoxemia. He was on BiPAP for a well. He has not had a sleep study. He has had numerous surgical procedures for drainage including March 17, March 21, March 22, 2017. His gram-positive rods are sensitive to Augmentin and Zosyn and one is resistant to cefazolin. Patient was placed on Zosyn and fluconazole. Patient was felt to be stable for discharge from acute care on 04/03/2017. Found diagnoses from that admission included sepsis secondary to skin and soft tissue infection, Alex's gangrene with multiple surgical interventions, type 2 diabetes on insulin, severe/morbid obesity, chronic. He also has obstructive sleep apnea and chronic leg edema second to chronic venous insufficiency. He has history of hypertension. Patient lives at home with his stepmother and his biological father. He lives with a sibling as well. Patient states that he has been disabled for at least 3 years and he is not totally certain why but thinks it is due to his weight and back problems. 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 He is not terribly active at home but does help with household duties, meal preparation and is able to take care of himself at home. He has 3 steps at home although a ramp is being built. He continues on intravenous antibiotics (Zosyn) at the present time along with wound care and will require additional surgical interventions. As a result of his prolonged hospitalization, bed rest and multiple medical problems, he has developed severe critical illness myopathy as evidenced by poor leg strength in the proximal musculature. Prior level of functioning is as follows: He was independent for eating, grooming, bathing, upper and lower body dressing, toileting and bed/chair/ wheelchair transfers. He was able to perform toilet transfers and walking at a modified independent level with a rolling walker 300 feet. He could climb stairs with modified independent functioning. Current level of functioning is as follows: He is independent for eating requires supervision for grooming, supervision for upper body dressing and toileting. He requires minimum assistance for bed/chair/wheelchair transfers, supervision for toilet transfers but requires maximum assistance for walking with a rolling walker 100 feet. He has easy fatigability and requires rest breaks during activity including ambulation. Patient has severe fatigue, muscle weakness and soft tissue tightness and swelling along with pain in the groin. He does have a wound VAC in place. The following medical conditions are noted and require active monitoring and/or management: 1. 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 He is at risk for worsening of the infection. 2. Diabetes mellitus type 2, currently on insulin 3. Morbid obesity 4. Obstructive sleep apnea (clinical diagnosis) requiring BiPAP 5. Hypertension: He is at risk for uncontrolled hypertension in view of his increased work demands The following therapies will be needed: 1. Physical therapy: for transfers and ambulation and stairs. 2. Occupational therapy: for ADL's and transfers. 3. Medical management: for the above conditions. 4. 24 hour Rehabilitation Nursing to monitor and address the following: Close monitoring of blood sugars, evidence of infection worsening, blood pressures and administration of intravenous antibiotics. 5. Dietitian: To continue monitoring and treating diabetes mellitus. [facility] Patient Stated Medical History Other HEENT Yes: GLASSES Hypertension Yes Sleep Apnea Yes Diabetes Mellitus Type 2 Yes Constipation No Hx Incontinence No Hx Renal Disease No MRSA Yes Other Infectious Yes: Staph infection in leg Anesthesia Reactions No Other current abscess to groin Other Behavioral Health Yes: [facility] Medical History (Last Updated 11/12/16 @ 09:35 by RON Fierro) Hx of bronchitis (Chronic Medical) 1996 Medical History Updates: DM-. HTN (hypertension). Obesity. Psoriasis. Edema extremities. Allergic rhinitis. GERD (gastroesophageal reflux disease). Candidiasis. Hypothyroidism. Alex's gangrene. Morbid obesity. History of bilateral pulmonary emboli a number of years ago. He states he was tested for genetic defects and these were negative. Surgical History: Esophagus widened - 1980. Multiple groin drainage procedures Family History: Family History (Last Updated 11/12/16 @ 09:37 by RON Fierro) Father Obesity Mother No known health problems Family History Updates: Father has congestive heart failure and smoke cigarettes. His biological mother has COPD which he attributes to tobacco use. She also has "bipolar disease." Has one sister with morbid obesity and blood clots. - Social History Smoking status: Current every day smoker Packs per day: 0.5 (started smoking at age 18. 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 He has not been . He lives with his father and stepmother along with another sibling. He is reported a disabled but he is not certain why. He thinks is due to his weight and back problems. Review of Systems - Constitutional Constitutional: Present: fatigue. Absent: anorexia, chills, fever(s), headache( s), lethargy, malaise, night sweats, weakness, weight gain, weight loss - EESDT Eyes: Absent: blurry vision, change in vision, diplopia Mouth/Throat: Absent: changes in swallowing, painful swallowing, change in taste , bleeding gums, change in voice - Cardiovascular Cardiovascular: Absent: chest pain, palpitations, syncope, dyspnea on exertion, orthopnea, edema, cyanosis, heart murmur Rhythm: Present: regular rhythm Vascular: Absent: intermittent claudication, pedal edema, unilateral swelling - Respiratory Respiratory: Present: dyspnea on exertion. Absent: cough, dyspnea, hemoptysis, wheezing, pain on inspiration, chest congestion, excessive phlegm production - Gastrointestinal Gastrointestinal: Absent: abdominal pain, change in bowel habits, constipation, diarrhea, dyspepsia, dysphagia, early satiety, hematochezia, melena, nausea, vomiting - Musculoskeletal Musculoskeletal: Present: back pain, myalgias. Absent: abnormal gait, arthralgias, joint swelling, limited range of motion, muscle weakness - Integumentary/Breasts Integumentary: Absent: alopecia, erythema, lesions, pruritus, rash, jaundice - Neurological Neurological: Absent: abnormal gait, abnormal movements, abnormal speech, confusion, convulsions, dizziness, focal weakness, frequent falls, headache(s), loss of vision, memory loss, numbness, paresthesias, tremor(s) - Psychiatric Psychiatric: Absent: abnormal sleep pattern, anxiety, depression - Endocrine Endocrine: Absent: cold intolerance, flushing, heat intolerance, palpitations - Hematologic/Lymphatic Hematologic/Lymphatic: Absent: easy bleeding, easy bruising, lymphadenopathy - Allergic/Immunologic Allergic/Immunologic: Absent: urticaria Medications Home Medications Medication Instructions Recorded Confirmed Type Aspirin Chewable [ASA] 81 mg PO BID 03/11/17 04/03/17 History Allergies Allergy/AdvReac Type Severity Reaction Status Date / Time silver sulfadiazine Allergy Severe Blister Verified 03/25/17 06:04 vancomycin Allergy Intermediate RASH Verified 03/25/17 06:04 Sulfa (Sulfonamide Allergy Mild RASH Verified 03/25/17 06:04 Antibiotics) Results IRU - Labs Labs: I have reviewed extensive notes from inpatient hospitalization. Exam Vital Signs: Temperature 98 F 04/04/17 09:00 Pulse Rate 55 L 04/04/17 09:00 Respiratory Rate 20 04/04/17 09:00 Blood Pressure 158/71 H 04/04/17 09:00 Pulse Oximetry 95 04/04/17 09:00 Height/Weight/BMI: Height 1.8 m Weight 242 kg Body Mass Index 74.4 - Constitutional Present: no acute distress, well nourished, well developed, morbidly obese, cooperative - Routine HEENT Exam Head: Present: normocephalic, atraumatic. Absent: cushingoid faces, abrasion, laceration, hematoma Eye: Present: EOMI, PERRL. Absent: conjunctival icterus, scleral injection, periorbital swelling, nystagmus ENT: Present: mucous membranes moist, oropharynx clear - Routine Neck Exam Present: supple, full ROM, trachea midline. Absent: lymphadenopathy, thyromegaly, tenderness, swelling - Routine Chest/Breast/Axilla Exam Chest wall: Absent: tenderness, mass Axillae: Absent: lymphadenopathy, mass - Routine Respiratory Exam Present: CTA bilaterally. Absent: accessory muscle use, decreased breath sounds , prolonged expiratory phase, rales, respiratory distress, rhonchi, stridor, wheezes, crackles, distant breath sounds - Routine Cardiovascular Exam Present: RRR, S1, S2, no murmur. Absent: gallop, S3, S4, click, irregular rhythm - Routine Abdominal Exam Present: soft, normoactive bowel sounds, non distended, non tender. Absent: rebound, guarding, firm, rigid, organomegaly, mass, hernia, wound Comments: Patient has a Garcia catheter in place along with wound VAC in the right groin area. - Routine Extremities Exam Present: no edema, non tender, pulses intact, normal capillary refill. Absent: cyanosis, clubbing - Routine Back/Spine/Pelvis Exam Back/Spine: Present: full ROM. Absent: scoliosis, kyphosis - Routine Skin Exam Present: intact, dry, warm. Absent: cyanosis, erythema, pallor, mottling, petechiae, urticaria, lesions, jaundice - Routine Neurological Exam Present: alert, oriented X3, CN II-XII intact, motor deficit (He has muscle weakness involving the proximal muscles of the lower extremities), moving all extremities, normal speech - Routine Psychiatric Exam Present: normal affect, normal thought process, cooperative, good insight, good judgment. Absent: depressed, anxious Sepsis Assessment - Evaluation Severe Sepsis: none seen IRU A/P (1) Myopathy Current visit: Yes Status: Acute Due to the patient's prolonged hospitalization and critical illness involving uncontrolled diabetes, cellulitis, groin abscess and Alex's gangrene, he has developed severe critical illness myopathy requiring multidisciplinary approach to his recovery. (2) Insulin dependent diabetes mellitus Current visit: No Status: Chronic He has a recent diagnosis of diabetes mellitus. He is on insulin. Blood sugars are monitored. He is at risk of hyperglycemia or hypoglycemia in view of his varying workloads involved with rehabilitation and his infection. (3) Alex's gangrene in male Current visit: No Status: Acute Current infection is improved. He will require continued surgical intervention and intravenous antibiotics. (4) Cellulitis Qualifiers: Site of cellulitis: other site Qualified Code(s): L03.818 - Cellulitis of other sites Current visit: No Status: Acute DVT Prophylaxis: SCD's, Lovenox Resuscitation Status: Full Code - Course Hospital Course: Parker Manzo MD: - Interventions to Obtain Goals PT Treatment Plan: Balance/Proprioception, Functional Activities, Gait Training , Patient/Family Education OT Treatment Plan: ADL (Basic Care), Balance Training, IADL, Pt./Family Education, Ther. Exercise for ADL Goals Progress/Modifications: Mr. Estrada is a medically complex patient with severe disuse/critical illness myopathy, Alex's gangrene with cellulitis in the groin area requiring continued surgical intervention and wound VAC. He requires intravenous antibiotics. He has morbid obesity, obstructive sleep apnea clinically and is at risk for deterioration with regard to his diabetes mellitus. He requires an individualized, intensive multidisciplinary approach to his recovery.
[2017-04-04] MEDS ORDERED: LR 1,000 ML IV SCH (12:15)
--- NOTE | 2017-04-04 12:19 | IRU 24Hr Post Admit Eval ---
24 Hr Post Admission Physical - Relevant Changes Relevant Changes: No Reviewed: I have reviewed the patient's information and concur with the finding and results of the pre-admission screen. Certification: I certify the patient for rehabilitation. 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 Classification: Present on IRF Admission, IRF Tx That Should Address Diagnosis, Diagnosis Requiring Medical Follow Up (3) Alex's gangrene in male Status: Acute Code(s): N50.1 - Vascular disorders of male genital organs Classification: Present on IRF Admission, IRF Tx That Should Address Diagnosis, Diagnosis Requiring Medical Follow Up (4) Cellulitis Status: Acute Qualifiers: Site of cellulitis: other site Qualified Code(s): L03.818 - Cellulitis of other sites Code(s): L03.90 - Cellulitis, unspecified Classification: Present on IRF Admission, IRF Tx That Should Address Diagnosis, Diagnosis Requiring Medical Follow Up - Prior Functional Status Lives With: With Family Residence Type: Apartment/Private Home Assitive Devices: None Prior Functional Status: Indep. at home or school, Depend. w/ IADL - Current Functional Status Current Level of Function: Current level of functioning is as follows: He is independent for eating requires supervision for grooming, supervision for upper body dressing and toileting. He requires minimum assistance for bed/chair/wheelchair transfers, supervision for toilet transfers but requires maximum assistance for walking with a rolling walker 100 feet. He has easy fatigability and requires rest breaks during activity including ambulation. Patient has severe fatigue, muscle weakness and soft tissue tightness and swelling along with pain in the groin. He does have a wound VAC in place. Patient Requirements: The patient requires oversight by rehabilitation physician to manage their rehabilitation treatment plan and multidisciplinary approach to care that can only be provided in an IRF and requires a multidisciplinary approach to care, provided by professional PTs, OTs, STs, dieticians, RTs, rehabilitation nurses and is not available in lesser levels of care. Limitations Req: Mobility Impairment, ADL Impairment Physical Therapy Minutes: 90 Occupational Therapy Minutes: 90 Therapy: The patient is to receive therapy at least 5 days a week. - Complications/Comorbidities Impact on Functional Outcomes: His infection and wound VAC as well as morbid obesity and dyspnea with activity secondary to deconditioning will likely negatively impact his functional outcome. - Plan to Avoid Complications Plan to Avoid Complications: The patient cannot receive this care in a lesser intensive setting such as Jail or Outpatient Therapy due to the patient requiring the following : This medically complex patient will require close 24-hour nursing supervision and monitoring of his blood sugars, administration of intravenous antibiotics and monitoring of his infection. He requires a multidisciplinary approach with PT, OT in view of his critical illness myopathy. He requires medical supervision of these medical issues.
[2017-04-04] MEDS ORDERED: SUCCINYLCHOLINE 20mg/mL 10mL INJECTION ONE (12:34)
[2017-04-04] MEDS ORDERED: FentaNYL 250 MCG/5 ML INJECTION ONE (12:34)
[2017-04-04] MEDS ORDERED: PROPOFOL 500 MG/50 ML VIAL ONE (12:34)
--- NOTE | 2017-04-04 12:38 | Anesthesia Preoperative Report ---
Anesthesia Preoperative Record - Date and Time Date: 04/04/17 Preoperative Diagnosis: groin abscess NPO Since Date: 04/03/17 NPO Since Time: 22:00 Allergies/Adverse Reactions: Allergies Allergy/AdvReac Type Severity Reaction Status Date / Time silver sulfadiazine Allergy Severe Blister Verified 03/25/17 06:04 vancomycin Allergy Intermediate RASH Verified 03/25/17 06:04 Sulfa (Sulfonamide Allergy Mild RASH Verified 03/25/17 06:04 Antibiotics) - Vital Signs Vital Signs: Temperature 98 F 04/04/17 09:00 Pulse Rate 55 L 04/04/17 09:00 Respiratory Rate 20 04/04/17 09:00 Blood Pressure 158/71 H 04/04/17 09:00 Pulse Oximetry 95 04/04/17 09:00 Height and Weight: Height 1.8 m Weight 242 kg Body Mass Index 74.4 - Medications Inpatient Medications: Current Medications Acetaminophen (Tylenol) 325 mg PO Q5H PRN PRN Reason: Discomfort Hydrocodone Bitart/Acetaminophen ([place] 5/325) 1 tab PO Q6H PRN PRN Reason: Pain Albuterol Sulfate (Proventil Neb (0.083%)) 2.5 mg AEROSOL PRN PRN PRN Reason: Wheezing Aspirin (Asa) 81 mg PO BID [facility] Last Admin: 04/03/17 21:10 Dose: 81 mg Bisacodyl (Dulcolax) 10 mg RECTALLY DAILY PRN PRN Reason: Constipation Clindamycin HCl (Cleocin) 450 mg PO TID [facility] Last Admin: 04/04/17 09:07 Dose: 450 mg Enoxaparin Sodium (Lovenox) 40 mg SQ DAILY [facility] Fluconazole (Diflucan 100 Mg Tablet) 400 mg PO DAILY [facility] Last Admin: 04/04/17 09:07 Dose: 400 mg Furosemide (Lasix) 80 mg PO QAM [facility] Last Admin: 04/04/17 09:08 Dose: 80 mg Glucose (Glutose 15) 37.5 gm PO PRN PRN PRN Reason: Hypoglycemia Piperacillin Sod/Tazobactam (Sod 3.375 gm/ Sodium Chloride) 50 mls @ 100 mls/ hr IV Q6H [facility] Last Infusion: 04/04/17 10:00 Dose: Infused Lactated Ringer's (Lactated Ringers) 1,000 mls @ 50 mls/hr IV .Q20H [facility] Ibuprofen (Motrin) 600 mg PO Q6H PRN PRN Reason: Pain Insulin Aspart (Novolog) 14 unit SQ WM [facility] Last Admin: 04/04/17 12:01 Dose: Not Given Insulin Glargine (Lantus) 18 unit SQ BID [facility] Last Admin: 04/03/17 21:08 Dose: 18 unit Levothyroxine Sodium (Synthroid) 50 mcg PO ACB [facility] Last Admin: 04/04/17 09:08 Dose: 50 mcg Nystatin (Mycostatin) 1 applic TP BID [facility] Last Admin: 04/04/17 08:18 Dose: 1 applic Oxycodone/Acetaminophen (Percocet 5/325) 1 - 2 tab PO Q4H PRN PRN Reason: Pain Last Admin: 04/04/17 04:50 Dose: 2 tab Polyethylene Glycol (Miralax) 17 gm PO BID [facility] Last Admin: 04/04/17 09:10 Dose: Not Given Potassium Chloride (K-Dur 20 Meq Tablet) 20 meq PO BIDWM [facility] Sodium Chloride (Normal Saline) 500 ml IV PRN PRN Sodium Chloride (Iv Flush) 10 ml IV PRN PRN PRN Reason: Flushing Last Admin: 04/04/17 01:54 Dose: 10 ml Home Medications: Home Medications Medication Instructions Recorded Confirmed Type Aspirin Chewable [ASA] 81 mg PO BID 03/11/17 04/03/17 History Is Patient on Beta Rl?: No - Medical History Respiratory: Reports: Sleep Apnea Cardiovascular: Reports: Hypertension Gastrointestional: Reports: Morbid Obesity (super morbidly obese) Renal/Endocrine: Reports: Diabetes Mellitus Type 2, Thyroid Disease Other History: DENIES: Anesthesia Reactions Comment Only: Other (current abscess to groin) - Surgical History Cardiac Surgeries/Treatments: DENIES: Pacemaker Respiratory Surgery/Treatments: Reports: BiPAP Use GI Surgery/Treatments: Reports: Other (NARROW ESOPHAGUS; had sx as a baby) Reproductive Surgery/Treatment: DENIES: Mastectomy Anesthesia Reactions: None Hx Family Anesthesia Reaction: No History of Motion Sickness: No - Social History Smoking Status: Current every day smoker Packs per day: 0.5 (started smoking at age 18. Has smoked between one half and one pack daily to the present time.) Hx Chewing Tobacco Use: No Second Hand Exposure: No Time spent discussing smoking cessation with patient: 3 to 10 minutes Substance Use Type: does not use Alcohol Intake: current Alcohol Intake Frequency: holidays/special occasions only Last Drink: days (ago) (30) - Pertinent Findings Laboratory: CBC and BMP 04/04/17 04:38 04/04/17 04:38 BMP 04/04/17 04:38 Sodium 143 Potassium 4.4 D Chloride 106 Carbon Dioxide 31 H BUN 17.0 Creatinine 1.1 Glucose 122 H Calcium 8.8 - Physical Exam Respiratory Exam: Present: lungs clear, bilateral breath sounds equal Cardiovascular Exam: Present: regular rate and rhythm - Airway Assessment Mallampati Score: III TMD: 3 Fingerbreadths Neck Extension: fair Overall Assessment: may be difficult mask vent, may be difficult intubation - ASA ASA Score: 3 - Plan Anesthesia: General Inhalation Gases (as backup) - Discussion Discussion: Discussed risks/options/alternatives of anesthesia and questions answered. Patient consents. Nursing pain assessment noted. Attestation Statement: Prior to the delivery of any anesthetic medication, I examined the patient, developed the plan, obtained the patient's consent and discussed the risk and benefits of the procedure with the patient/guardian. - Additional Information Seen by Anesthesia: Yes
[2017-04-04] MEDS ORDERED: DEXAMETHASONE 4 MG/ML INJECTION ONE (13:15)
[2017-04-04] MEDS ORDERED: GLYCOPYRROLATE 0.4 MG/2 ML INJECTION ONE (13:18)
[2017-04-04] MEDS: INSULIN GLARGINE 100unit/ml INJECTION SQ SCH ×2 (13:33→20:41)
--- NOTE | 2017-04-04 14:06 | General Surgery Procedure Note ---
Date of Procedure: 04/04/17 Surgeon: Cate Roll Press Operator: Mikel Sanford APRN, Other (Sarah Rodriguez RN, CWS for wound vac) Postoperative Diagnosis: Fourgniers' Gangrene Procedure: Debridement of necrotic tissue, placement of JAH drains x2, partial closure of wound, placement of wound vac. Estimated Blood Loss: See Anesthesia Record. Pathology: none sent
[2017-04-04] MEDS ORDERED: ONDANSETRON 4 MG/2 ML INJECTION IVP PRN (14:51)
[2017-04-04] MEDS: FentaNYL 100 MCG/2 ML INJECTION IVP PRN ×3 (14:56→15:32)
[2017-04-04] MEDS: LABETALOL 100mg/20ml INJECTION IVP PRN ×2 (14:58→15:15)
--- NOTE | 2017-04-04 15:19 | Anesthesia Postoperative Note ---
- Date and Time Date: 04/04/17 Time: 15:17 - Status Patient Participated in Evaluation: Patient Participated in Person Vital Signs: Temperature 97.4 F 04/04/17 14:27 Pulse Rate 63 04/04/17 15:10 Respiratory Rate 21 04/04/17 15:10 Blood Pressure 214/102 H 04/04/17 15:10 Pulse Oximetry 91 04/04/17 15:10 Respiratory Function: Airway Patent, Regular Respirations Cardiovascular Function: Regular Pulse Mental Status: Alert and Oriented Pain Intensity: 5 Hydration: IV Infusing Complications During Recover: None Apparent - Follow-Up Instructions Instructions: Per Surgeon
[2017-04-04] MEDS: LOSARTAN 50 MG TABLET PO SCH (16:23)
[2017-04-04] MEDS: ASPIRIN 81 MG CHEWABLE TABLET PO SCH ×2 (16:31→20:40)
[2017-04-05] MEDS: PIPERACILLIN/TAZOBACTAM 3.375 GM in NS 50 ML IV SCH ×4 (01:41→22:30)
[2017-04-05] MEDS: Oxycodone/Acetaminophen 5/325 1 TAB PO PRN ×4 (05:33→22:29)
[2017-04-05] MEDS: LEVOTHYROXINE 50 MCG TABLET PO SCH (05:34)
[2017-04-05] MEDS: INSULIN ASPART 100unit/ml INJECTION SQ SCH ×3 (08:16→17:25)
[2017-04-05] MEDS: ASPIRIN 81 MG CHEWABLE TABLET PO SCH ×2 (08:24→22:28)
[2017-04-05] MEDS: CLINDAMYCIN 150 MG CAPSULE PO SCH ×3 (08:24→22:29)
[2017-04-05] MEDS: ENOXAPARIN 40 MG/0.4 ML INJECTION SQ SCH (08:25)
[2017-04-05] MEDS: FUROSEMIDE 80 MG TABLET PO SCH (08:27)
[2017-04-05] MEDS: FLUCONAZOLE 100 MG TABLET PO SCH (08:27)
[2017-04-05] MEDS: LOSARTAN 50 MG TABLET PO SCH (08:29)
[2017-04-05] MEDS: POLYETHYL GLYCOL 3350 17gm PACKET PO SCH ×2 (08:30→22:26)
[2017-04-05] MEDS: INSULIN GLARGINE 100unit/ml INJECTION SQ SCH ×2 (08:31→22:26)
[2017-04-05] MEDS: NS FLUSH BAG 500ml IV PRN (10:00)
[2017-04-05] MEDS: SALINE FLUSH 10ml SYRINGE IV PRN ×2 (10:00→15:17)
--- NOTE | 2017-04-05 10:16 | Operative Note ---
DATE OF PROCEDURE 04/04/2017 SURGEON Dave Esposito MD SAILING OFFICER Mikel Sanford APRN PREOPERATIVE DIAGNOSIS Personal history for necrotizing soft tissue infection/necrotizing fasciitis involving lower abdomen. POSTOPERATIVE DIAGNOSIS Personal history for necrotizing soft tissue infection/necrotizing fasciitis involving lower abdomen. PROCEDURE Exploration of a 40 cm wound with additional excisional surgical debridement of subcutaneous tissues, closure of deep subcutaneous tissues 40 cm in length, application of wound vac. ANESTHESIA TIVA. BRIEF HISTORY/INDICATIONS Mr. Estrada is a very pleasant 37-year-old gentleman who has had the misfortune of developing a necrotizing soft tissue infection/necrotizing fasciitis involving his lower abdomen. The patient is diabetic and morbidly obese. He has undergone multiple excisional surgical debridements of this large wound involving his lower abdomen. We have been utilizing negative wound pressure therapy to facilitate healing of the wound. At this time there is good granulation tissue throughout 98-99% of the wound and it was recommended that he undergo re-exploration of his wound with probable partial closure of his wound. For completeness please refer to notes in the patient's chart. DESCRIPTION OF PROCEDURE After informed consent was obtained the patient was brought to the operative suite and placed on the table in supine fashion. The lower abdomen was then prepped and draped in sterile fashion. Formal time-out was then completed. The wound was then carefully inspected throughout. There are a few small foci of some residual necrotic subcutaneous tissues. This was less than 10 cm2 throughout the entire wound. Small foci of necrotic residual subcutaneous tissues was debrided sharply with a surgical curette as well as [place] forceps. Once the wound had been carefully inspected throughout, attention was then directed towards delayed primary closure of the deep subcutaneous tissues. The wound depth itself was perhaps 12-15 cm at its deepest portion. To prevent accumulation of fluid within the depth the wound, I elected to place two 19-Serbian drains. Drains were allowed to exit out the lateral aspect of the lower abdominal wall. The drains were placed within the deepest portions of the subcutaneous tissues. Subcutaneous tissues were then closed in multiple layers in a running fashion with 0 Vicryl. Suture was begun within the deepest part of the wound and advanced towards the skin surface. The last 3-4 cm of the subcutaneous tissues adjacent to the skin surface was left open for placement of additional foam. It is my hope that the foam placed within the more superficial portion of the wound will result in creation of negative pressure within the depth the wound and further coaptation of the edges of the granulation tissue. Next black foam, as stated above, was placed upon the residual open portion of the more superficial subcutaneous tissues throughout the surface of the wound. Steri-Drape was then applied followed by a track pad. The patient was awakened from his anesthetic and sent back to recovery room once deemed in stable condition. BULMARO
--- NOTE | 2017-04-05 11:06 | IRU Progress Note ---
- Subjective/Serverity of Illness Date: 04/05/17 Mr. Estrada was evaluated in his room on inpatient rehabilitation. He is working with therapy. He denies any chest pain. There is some easy fatigability with ambulation but overall tolerating therapy well. The patient did undergo a surgical procedure yesterday for further debridement and placement of a couple of JAH drains. Tolerated the procedure well. However he states this is causing him to require additional assistance with dressing because of the drains. He was on the commode and had a minor shearing skin trauma to the back of both thighs. He was evaluate by Sarah Rodriguez with wound care and she applied a [employer] ([employer]) product to this. Brief therapy update: He is getting started with therapy. However he was able to ambulate 150 feet with essentially stand by assistance. He took one rest break by standing but otherwise did very well. In addition, I did visit with the dietitian. They're recommending a 3200- calorie consistent carbohydrate diet. This is approved as well. Update on medical issues were actively monitoring and managing as follows: 1. 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 He remains afebrile. White count is normal. Tolerated debridement yesterday well. Management per surgery and medicine with regard to antibiotics and debridement. 2. Diabetes mellitus type 2, currently on insulin: His blood sugars are reviewed and typically are around 200. No hypoglycemic episodes are noted. 3. Morbid obesity: He will be on a 3200-calorie consistent carbohydrate diet. 4. Obstructive sleep apnea (clinical diagnosis) requiring BiPAP: He is using his BiPAP on a nightly basis with benefit. 5. Hypertension: His blood pressures are remaining a bit elevated at 160 systolic. He is on several medications in this regard. Exam Vital Signs: Temperature 97.8 F 04/05/17 07:34 Pulse Rate 56 L 04/05/17 07:34 Respiratory Rate 18 04/05/17 07:34 Blood Pressure 161/91 H 04/05/17 07:34 Pulse Oximetry 95 04/05/17 07:34 Height/Weight/BMI: Height 1.8 m Weight 242 kg Body Mass Index 74.4 - Constitutional Present: well nourished, well developed, morbidly obese, cooperative - Routine HEENT Exam Head: Present: normocephalic Eye: Present: EOMI ENT: Present: mucous membranes moist, dentition normal - Routine Neck Exam Present: supple - Routine Respiratory Exam Present: CTA bilaterally. Absent: wheezes - Routine Cardiovascular Exam Present: RRR, S1, S2. Absent: murmur - Routine Abdominal Exam Present: soft, normoactive bowel sounds, non distended. Absent: tenderness - Routine Extremities Exam Present: no edema, normal capillary refill. Absent: cyanosis, clubbing - Routine Back/Spine/Pelvis Exam Back/Spine: Present: full ROM - Routine Skin Exam Present: dry, warm - Routine Neurological Exam Present: alert, oriented X3, CN II-XII intact - Routine Psychiatric Exam Present: normal affect, cooperative, good insight, good judgment Results IRU - Labs Labs: I have reviewed chart data including laboratory, other providers notes and vital signs etc. IRU A/P (1) Myopathy Current visit: Yes Status: Acute Patient is improving with regard to strength and transfers. 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 (2) Insulin dependent diabetes mellitus Current visit: No Status: Chronic Blood sugars are running around 200. No hypoglycemic episodes are noted. Discussed case with dietitian as well. 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 Underwent further debridement yesterday with placement of drains. Tolerated procedure well. Remains on antibiotics. (4) Cellulitis Qualifiers: Site of cellulitis: other site Qualified Code(s): L03.818 - Cellulitis of other sites Current visit: No Status: Acute (5) Hypertension Qualifiers: Hypertension type: essential hypertension Qualified Code(s): I10 - Essential (primary) hypertension Current visit: Yes Status: Chronic His blood pressures are running a bit too high. Much of this may be related to increased activity as well as his morbid obesity. He remains on medications for this. DVT Prophylaxis: SCD's, Lovenox Resuscitation Status: Full Code - Course Hospital Course: Parker Manzo MD: 04/05/17 11:09 Patient is progressing with therapy and is very cooperative. Blood sugars are around 200. Blood pressures are running a bit high. - Interventions to Obtain Goals PT Treatment Plan: Balance/Proprioception, Functional Activities, Gait Training , Patient/Family Education OT Treatment Plan: ADL (Basic Care), Balance Training, IADL, Pt./Family Education, Ther. Exercise for ADL Goals Progress/Modifications: Time spent with patient and on floor reviewing data and documentin min Barriers to dismissal: Intravenous antibiotics, multiple drains, endurance Medical decision-making: Patient is tolerating therapy without excessive difficulty. He does have some easy fatigability but is working hard. He is improving with both PT and OT. He did require debridement yesterday. I have a call pending to Dr. Esposito at this time to see what his plans are for further debridement and wound management. In addition, I have discussed the case with the dietitian with regard to his caloric intake. She recommends 3200 elo daily. He remains on BiPAP at night. His blood pressures are running a bit too high and we will continue to monitor these working with the hospitalists as needed. His blood sugars are fairly well controlled around 200. Please note that the patient's individual plan of care was developed and documented today, requiring review of therapy notes, medical conditions and anticipated functional recovery. This required additional medical decision making with regard to interaction of the patient's medical issues with the anticipated functional recovery. Please see separate document
--- NOTE | 2017-04-05 11:14 | IRU Plan of Care ---
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 Code(s): N50.1 - Vascular disorders of male genital organs Status: Acute Classification: Present on IRF Admission, IRF Tx That Should Address Diagnosis, Diagnosis Requiring Medical Follow Up (4) Cellulitis Qualifiers: Site of cellulitis: other site Qualified Code(s): L03.818 - Cellulitis of other sites Code(s): L03.90 - Cellulitis, unspecified Status: Acute Classification: Present on IRF Admission, IRF Tx That Should Address Diagnosis, Diagnosis Requiring Medical Follow Up (5) Hypertension Qualifiers: Hypertension type: essential hypertension Qualified Code(s): I10 - Essential (primary) hypertension Code(s): I10 - Essential (primary) hypertension Status: Chronic Classification: Present on IRF Admission, IRF Tx That Should Address Diagnosis, Diagnosis Requiring Medical Follow Up - Relevant Changes Relevant Changes: No Reviewed: I have reviewed the patient's information and concur with the finding and results of the pre-admission screen. Certification: I certify the patient for rehabilitation. - Medical Prognosis Medical Prognosis: Good Vital Signs: Last Vital Signs Temp 97.8 F 04/05/17 07:34 Pulse 56 L 04/05/17 07:34 Resp 18 04/05/17 07:34 BP 161/91 H 04/05/17 07:34 Pulse Ox 95 04/05/17 07:34 - Anticipated Interventions Anticipated Interventions: The patient requires inpatient IRF care for PT and OT for residuals remaining from groin abscess with cellulitis and Alex's gangrene resulting in muscular weakness and strength deficits. An individualized overall plan of care has been developed after careful review of the patient's preadmission screening , post admission physician evaluation and assessments of all therapy disciplines and/or other pertinent clinicians involved in treating the patient. This indicates medical necessity and rehabilitation necessity have been established through a thorough review of all available medical information. - Current Functional Status Failed Alternative Therapy: Arrived from Acute Care Patient Requires: The patient requires oversight by rehabilitation physician to manage their rehabilitation treatment plan and multidisciplinary approach to care that can only be provided in an IRF and requires a multidisciplinary approach to care, provided by professional PTs, OTs, STs, rehabilitation nurses, and may require STs, dieticians, and RTS. This is not available in lesser levels of care. Physical Therapy Minutes: 90 Occupational Therapy Minutes: 90 Therapy: The patient is to receive therapy at least 5 days a week. - Anticipated LOS/Outcomes Anticipated Functional Outcome: Expected functional improvements include: -- Modified independant to independant ambulation with or without assistive device -- Modified independant to independant ADL's with or without assistive device -- Return to pre-morbid level of mobility -- Maximize level of mobility and ADL's to decrease burden on any caregiver involved with this patient's care Anticipated Length of Stay (days): 10 Anticipated DC Destination: Home, Self Care, Home Health Service Home Safety Plan: The patient will be provided with the development of a Home Safety Plan for return to a home or home-like environment and and to ensure safety post discharge. - Plan to Avoid Complications Barriers to Attaining Goals: Weakness, Endurance, Medical Limitation Plan to Avoid Complications: The patient cannot receive this care in a lesser intensive setting such as Penitentiary or Outpatient Therapy due to the patient requiring the following : He requires a multidisciplinary approach in view of his diabetes mellitus, hypertension, wounds requiring close 24-hour rehabilitation nursing monitoring as well as his obstructive sleep apnea and BiPAP requirement. He requires a coordinated approach with PT and OT along with medical supervision. This cannot be provided at a lower level of care at this time. .
--- NOTE | 2017-04-05 15:08 | Infectious Disease Consult ---
Infectious Disease Consult Date of Consultation: 04/05/17 Requesting Physician: Parker Manzo Reason for Consultation: antibiotic recs History of Present Illness: Mr. Estrada is a 37 y/o man with obesity and newly diagnosed DM, who I saw initially on 03/20/17. He had a recent admission here 03/11-12/19 with a L groin abscess. He recently had a glucose of 785, and his Hgb A1C was >15. He reports that he has a h/o recurrent abscesses in the groin area, and he's had them in the axillae and one on the buttock. He reports that the one on his buttock was surgically excised a few years ago, but it keeps recurring. He also has a h/o psoriasis but has never seen Dermatology. He reports that his recent L groin abscess opened up on its own and started draining. He had a wound culture that had GPR on the gram stain, and grew C. albicans, S. gordonii , and a GPR which was not identified. He was discharged on 03/13 and he was not given an antibiotic. He reports that within a couple days of discharge, this area got larger, was the size of a "golfball." He also reports that he had fever on Saturday and so he returned to the ED and was admitted. He also reports that there was redness that spread to the R groin area. He has an area on his R thigh that "retains water" periodically. On admission, he did not have documented fever, his PCT was 0.3. Lactate was elevated, but returned to normal. He was started on ancef and clindamycin. Blood cx from 03/16 are NGTD. Wound culture 03/16 is growing 2 GPRs. This area in the L groin was drained by Dr. Gonzalez on 03/17. He was taken to the operating room on March 14 Dr. Esposito for exploration of wound within the left mons pubis area with wide excisional surgical debridement of necrotic subcutaneous tissues and fascia. 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 I changed his antibiotics to Zosyn and clindamycin have been added. He has tolerated these antibiotics without any problems. He had a wound culture obtained on March 17 which grew 2 types of gram-positive Jama the Gram stain had moderate gram-positive cocci in pairs and moderate gram-positive rods. The gram-positive rods were both sensitive to Zosyn and amoxicillin/clavulanate. Surgical cultures obtained on March 21 also had 2 gram-positive rods as well as an anaerobic gram-negative jama. He has had multiple debridements of his wound most recently yesterday. There was still a very small area of necrotic tissue debrided yesterday. He has also been on fluconazole because a wound culture obtained on his very first admission had some Alvina in it. He was discharged to the inpatient rehabilitation unit on April 04. Medications Home Medications Medication Instructions Recorded Confirmed Type Aspirin Chewable [ASA] 81 mg PO BID 03/11/17 04/03/17 History Allergies Allergy/AdvReac Type Severity Reaction Status Date / Time silver sulfadiazine Allergy Severe Blister Verified 03/25/17 06:04 vancomycin Allergy Intermediate RASH Verified 03/25/17 06:04 Sulfa (Sulfonamide Allergy Mild RASH Verified 03/25/17 06:04 Antibiotics) [facility] Patient Stated Medical History Other HEENT Yes: GLASSES Hypertension Yes Sleep Apnea Yes Diabetes Mellitus Type 2 Yes Constipation No Hx Incontinence No Hx Renal Disease No MRSA Yes Other Infectious Yes: Staph infection in leg Anesthesia Reactions No Other current abscess to groin Other Behavioral Health Yes: [facility] Medical History (Last Updated 11/12/16 @ 09:35 by RON Fierro) Hx of bronchitis (Chronic Medical) 1996 Medical History Updates: DM-. HTN (hypertension). Obesity. Psoriasis. Edema extremities. Allergic rhinitis. GERD (gastroesophageal reflux disease). Candidiasis. Hypothyroidism. Alex's gangrene. Morbid obesity. History of bilateral pulmonary emboli a number of years ago. He states he was tested for genetic defects and these were negative. Surgical History: Esophagus widened - 1980. Multiple groin drainage procedures Family History: Family History (Last Updated 11/12/16 @ 09:37 by RON Fierro) Father Obesity Mother No known health problems - Social History Smoking status: Current every day smoker Does patient use chewing tobacco?: No Review of Systems All systems PM: 10-point ROS was reviewed, no additional remarkable complaints except - Constitutional Constitutional: Absent: chills, fever(s) - Cardiovascular Cardiovascular: Absent: chest pain - Respiratory Respiratory: Absent: cough, dyspnea - Gastrointestinal Gastrointestinal: Absent: diarrhea, nausea, vomiting - Genitourinary Genitourinary: Absent: difficulty urinating - Neurological Neurological: Absent: headache(s) Exam Vital Signs: Temperature 97.8 F 04/05/17 07:34 Pulse Rate 56 L 04/05/17 07:34 Respiratory Rate 18 04/05/17 07:34 Blood Pressure 161/91 H 04/05/17 07:34 Pulse Oximetry 95 04/05/17 07:34 Height/Weight/BMI: Height 1.8 m Weight 242 kg Body Mass Index 74.4 - Constitutional Present: no acute distress, well nourished, well developed, obese - Routine HEENT Exam Head: Present: normocephalic, atraumatic Eye: Present: EOMI, PERRL ENT: Present: mucous membranes moist, oropharynx clear, dentition normal - Routine Neck Exam Present: supple - Routine Respiratory Exam Present: CTA bilaterally - Routine Cardiovascular Exam Present: RRR - Routine Abdominal Exam Present: soft, normoactive bowel sounds, non distended, non tender - Routine Exam Comments: He has a Garcia catheter in place. He has a wound VAC over his wound in the mons pubis area. He has a JAH drain on the right side and the left side of his groin. The erythema over the mons pubis area is nearly resolved - Routine Extremities Exam Absent: cyanosis, clubbing, edema - Routine Skin Exam Absent: rash Comments: LUE PICC site ok. Erythema R medial thigh is resolved, some peeling skin - Routine Neurological Exam Present: alert, oriented X3, CN II-XII intact. Absent: motor deficit - Routine Psychiatric Exam Present: normal affect, normal thought process Results - Labs CBC & Chem 7: 04/04/17 04:38 04/04/17 04:38 Impression: Sepsis secondary to skin/soft tissue source. Alex's gangrene, with L groin abscess, s/p debridement 03/17, 03/21, 03/22, , 03/28. S/p I&D with partial wound closure 04/04/17. Wound culture 03/16 with 2 strains of GPRs, both sensitive to Amox/clavulanate and Zosyn, one is R to cefazolin. Previous wound culture with S. gordonii, GPR and C. albicans Morbid obesity DM II, newly diagnosed, with Hgb A1C>15. Psoriasis Probable hydradenitis suppurativa Tobacco use Questionable Vanco allergy, also sulfa allergy Recommendation: Continue current antibiotics. Continue po fluconazole and po clindamycin. Once he's had a wound VAC change which shows that there is no longer any necrotic-appearing tissue, I'd consider changing the Zosyn to Augmentin. I would recommend 2 weeks of antibiotics after his last debridement. Will continue to follow.
[2017-04-05] MEDS: TRIAMTERENE/HCTZ 37.5 MG-25 MG TABLET PO SCH (15:15)
[2017-04-05] MEDS: LISINOPRIL 20 MG TABLET PO SCH (15:16)
[2017-04-05] MEDS: GABAPENTIN 100 MG CAPSULE PO SCH ×2 (15:16→22:28)
[2017-04-05] MEDS: IBUPROFEN 600 MG TABLET PO PRN (15:16)
--- NOTE | 2017-04-05 19:38 | Consultation ---
DATE OF CONSULTATION 04/05/[address] Parker Manzo CONSULTING PHYSICIAN Dr. Ephraim Rodarte REASON FOR CONSULTATION Medical management. ASSESSMENT 1. Sepsis secondary to skin and soft tissue source. 2. Asymptomatic silent bradycardia. 3. Alex's gangrene with multiple surgical interventions. 4. Type II diabetes mellitus - needing insulin. 5. Severe obesity, chronic. 6. Hypertension. Blood pressure better control. 7. Chronic leg edema due to chronic venous insufficiency. 8. Code Status: FULL CODE. REASON FOR ADMISSION The patient is a 37-year-old male who presented to [facility] with a left groin infection of a several-week duration. He also has a recent diagnosis of new-onset diabetes mellitus. Amazingly enough, his blood sugar has been well controlled lately. He had been on the surgical floor for about ilq-vst-h-half weeks. He is been currently treated for the above diagnoses. He is needing a multidisciplinary approach to his overall medical problems which are complex in nature, needing multiple consultants including Dr. Michelle Nguyen, Infectious Disease, Dr. Dave Cavanaugh, Pulmonology, Dr. Dave Esposito, General Surgery, and now Dr. Manzo, [facility]. PHYSICAL EXAM VITAL SIGNS: Blood pressure 139/83, pulse 60, respirations 18, temperature 97.6 , oxygen saturation 93% on room air. GENERAL: The patient looks comfortable, cheerful. NECK: Supple. CHEST: Lungs are clear. CARDIOVASCULAR: Regular rate and rhythm. ABDOMEN: Soft. EXTREMITIES: Chronic edema. LABORATORY No lab today. PLAN 1. Aggressive inpatient physical therapy as per Dr. Manzo's team. We appreciate them accepting this patient to their service. 2. Resume two more of patient's home medications for better control of blood pressure. 3. Continue IV antibiotics as per Dr. Michelle Nguyen. 4. I will follow the patient every other day or sooner if needed. 5. The patient is fairly stable. His blood sugar has really been very stable for almost two weeks. [facility]
[2017-04-06] MEDS: PIPERACILLIN/TAZOBACTAM 3.375 GM in NS 50 ML IV SCH ×4 (04:17→22:22)
[2017-04-06] MEDS: Oxycodone/Acetaminophen 5/325 1 TAB PO PRN ×4 (06:16→22:23)
[2017-04-06] MEDS: LEVOTHYROXINE 50 MCG TABLET PO SCH (06:16)
[2017-04-06] MEDS: INSULIN ASPART 100unit/ml INJECTION SQ SCH ×3 (08:40→17:39)
[2017-04-06] MEDS: IBUPROFEN 600 MG TABLET PO PRN (08:42)
[2017-04-06] MEDS: ENOXAPARIN 40 MG/0.4 ML INJECTION SQ SCH (08:42)
[2017-04-06] MEDS: INSULIN GLARGINE 100unit/ml INJECTION SQ SCH ×2 (08:42→22:24)
[2017-04-06] MEDS: ASPIRIN 81 MG CHEWABLE TABLET PO SCH ×2 (08:43→22:24)
[2017-04-06] MEDS: TRIAMTERENE/HCTZ 37.5 MG-25 MG TABLET PO SCH (08:43)
[2017-04-06] MEDS: LISINOPRIL 20 MG TABLET PO SCH (08:44)
[2017-04-06] MEDS: GABAPENTIN 100 MG CAPSULE PO SCH ×3 (08:44→22:24)
[2017-04-06] MEDS: FUROSEMIDE 80 MG TABLET PO SCH (08:44)
[2017-04-06] MEDS: FLUCONAZOLE 100 MG TABLET PO SCH (08:44)
[2017-04-06] MEDS: CLINDAMYCIN 150 MG CAPSULE PO SCH ×3 (08:44→22:23)
[2017-04-06] MEDS: LOSARTAN 50 MG TABLET PO SCH (08:44)
[2017-04-06] MEDS: POLYETHYL GLYCOL 3350 17gm PACKET PO SCH ×2 (08:45→22:22)
[2017-04-06] MEDS: NS FLUSH BAG 500ml IV PRN (15:46)
[2017-04-06] MEDS: SALINE FLUSH 10ml SYRINGE IV PRN (15:47)
[2017-04-06] MEDS ORDERED: CALCIUM CARBONATE Chewable 500mg TABLET PO PRN (17:53)
[2017-04-06] MEDS: OMEPRAZOLE 20 MG CAPSULE PO SCH (18:01)
[2017-04-07] MEDS: PIPERACILLIN/TAZOBACTAM 3.375 GM in NS 50 ML IV SCH ×4 (04:28→21:58)
[2017-04-07] MEDS: OMEPRAZOLE 20 MG CAPSULE PO SCH (05:48)
[2017-04-07] MEDS: Oxycodone/Acetaminophen 5/325 1 TAB PO PRN ×4 (05:48→22:55)
[2017-04-07] MEDS: LEVOTHYROXINE 50 MCG TABLET PO SCH (05:49)
[2017-04-07] MEDS: FUROSEMIDE 80 MG TABLET PO SCH (08:43)
[2017-04-07] MEDS: FLUCONAZOLE 100 MG TABLET PO SCH (08:43)
[2017-04-07] MEDS: TRIAMTERENE/HCTZ 37.5 MG-25 MG TABLET PO SCH (08:44)
[2017-04-07] MEDS: LISINOPRIL 20 MG TABLET PO SCH (08:44)
[2017-04-07] MEDS: IBUPROFEN 600 MG TABLET PO PRN (08:44)
[2017-04-07] MEDS: ASPIRIN 81 MG CHEWABLE TABLET PO SCH ×2 (08:44→21:53)
[2017-04-07] MEDS: GABAPENTIN 100 MG CAPSULE PO SCH ×3 (08:45→21:53)
[2017-04-07] MEDS: ENOXAPARIN 40 MG/0.4 ML INJECTION SQ SCH (08:45)
[2017-04-07] MEDS: LOSARTAN 50 MG TABLET PO SCH (08:45)
[2017-04-07] MEDS: INSULIN GLARGINE 100unit/ml INJECTION SQ SCH ×2 (08:45→22:01)
[2017-04-07] MEDS: INSULIN ASPART 100unit/ml INJECTION SQ SCH ×3 (08:46→17:27)
[2017-04-07] MEDS: CLINDAMYCIN 150 MG CAPSULE PO SCH ×3 (08:46→21:54)
[2017-04-07] MEDS: POLYETHYL GLYCOL 3350 17gm PACKET PO SCH ×2 (08:47→21:55)
[2017-04-07] MEDS ORDERED: D5-1/2NS 1,000 ML IV SCH ×2 (14:45→19:00)
[2017-04-07] MEDS: SALINE FLUSH 10ml SYRINGE IV PRN (22:56)
[2017-04-08] MEDS: PIPERACILLIN/TAZOBACTAM 3.375 GM in NS 50 ML IV SCH ×4 (04:33→23:21)
[2017-04-08] MEDS: SALINE FLUSH 10ml SYRINGE IV PRN ×2 (04:37→10:34)
[2017-04-08] MEDS: LEVOTHYROXINE 50 MCG TABLET PO SCH (05:38)
[2017-04-08] MEDS: OMEPRAZOLE 20 MG CAPSULE PO SCH (05:38)
[2017-04-08] MEDS: Oxycodone/Acetaminophen 5/325 1 TAB PO PRN ×4 (06:26→23:17)
--- NOTE | 2017-04-08 09:07 | ID Progress Note ---
Subjective Date: 04/08/17 Subjective: Mr. Estrada denies any new problems. He denies fever, chill, N/V/D. I was able to see his wound with VAC change today. Exam Vital Signs: Temperature 98.3 F 04/07/17 20:35 Pulse Rate 57 L 04/07/17 20:35 Respiratory Rate 16 04/07/17 20:35 Blood Pressure 152/91 H 04/07/17 20:35 Pulse Oximetry 96 04/07/17 20:35 Height/Weight/BMI: Height 1.8 m Weight 242 kg Body Mass Index 74.4 - Constitutional Present: no acute distress, well nourished, well developed, obese - Routine HEENT Exam Head: Present: normocephalic, atraumatic Eye: Present: EOMI ENT: Present: mucous membranes moist, oropharynx clear, dentition normal - Routine Neck Exam Present: supple - Routine Respiratory Exam Present: CTA bilaterally - Routine Cardiovascular Exam Present: RRR - Routine Abdominal Exam Present: soft, normoactive bowel sounds - Routine Exam Comments: Garcia in place. Wound in mons pubis area appears very clean with good granulation tissue. No significant surrounding cellulitis or erythema. - Routine Extremities Exam Absent: cyanosis, clubbing, edema - Routine Skin Exam Absent: rash Comments: LUE PICC site ok - Routine Neurological Exam Present: alert, oriented X3, CN II-XII intact. Absent: motor deficit - Routine Psychiatric Exam Present: normal affect Results - Labs CBC & Chem 7: 04/08/17 04:01 04/08/17 04:01 Impression: Sepsis secondary to skin/soft tissue source. Alex's gangrene, with L groin abscess, s/p debridement 03/17, 03/21, 03/22, , 03/28. S/p I&D with partial wound closure 04/04/17. Wound culture 03/16 with 2 strains of GPRs, both sensitive to Amox/clavulanate and Zosyn, one is R to cefazolin. Previous wound culture with S. gordonii, GPR and C. albicans Morbid obesity DM II, newly diagnosed, with Hgb A1C>15. Psoriasis Probable hydradenitis suppurativa Tobacco use Questionable Vanco allergy, also sulfa allergy Recommendation: Continue current antibiotics. Continue po fluconazole and po clindamycin. I would recommend 2 weeks of antibiotics after his last debridement. Will continue to follow.
--- NOTE | 2017-04-08 09:14 | Progress Note ---
DATE 04/07/2017 SUBJECTIVE Mr. Estrada is lying in bed in Room 170 on the Inpatient Rehab Unit this morning when I saw him. He seems happy. He does not voice any specific complaint today. Physical therapy is going well. PHYSICAL EXAMINATION GENERAL: Patient looks comfortable and cheerful. VITAL SIGNS: Blood pressure 159/91 with respiration of 20. Pulse runs between 51-58 on average. Temperature 97.9. O2 sat 95% on room air. NECK: Supple. LUNGS: Clear. CARDIOVASCULAR: Regular rate and rhythm. ABDOMEN: Soft. Nontender. EXTREMITIES: His edema is actually improving bilaterally. NEURO EXAM: Patient is alert, awake. There are no focal neurologic deficits. LABORATORY His blood sugar is running between 96 to 136. ASSESSMENT 1. Sepsis secondary to skin and soft tissue source. 2. Asymptomatic bradycardia. 3. Alex's gangrene with multiple surgical interventions. 4. Type 2 diabetes - needing insulin. 5. Severe obesity, chronic. 6. Hypertension. Blood pressure is better controlled. 7. Chronic leg edema due to chronic venous insufficiency, stable. CODE STATUS Patient is Full Code. PLAN 1. Continue inpatient physical therapy as per Dr. Manzo's team. 2. Dr. Esposito will continue working with the patient as far as debridement is concerned. 3. Dr. Michelle Nguyen will continue with IV antibiotic management. 4. As the patient is fairly stable, I will see him every other day. I would be glad to see him every day if the need should arise. 5. Followup lab in the morning including BMP and CBC. MTDD
[2017-04-08] MEDS: INSULIN GLARGINE 100unit/ml INJECTION SQ SCH ×2 (09:42→23:16)
[2017-04-08] MEDS: INSULIN ASPART 100unit/ml INJECTION SQ SCH ×3 (09:42→17:28)
[2017-04-08] MEDS: CLINDAMYCIN 150 MG CAPSULE PO SCH ×3 (09:43→22:46)
[2017-04-08] MEDS: FUROSEMIDE 80 MG TABLET PO SCH (09:43)
[2017-04-08] MEDS: LISINOPRIL 20 MG TABLET PO SCH (09:43)
[2017-04-08] MEDS: ASPIRIN 81 MG CHEWABLE TABLET PO SCH ×2 (09:43→23:17)
[2017-04-08] MEDS: IBUPROFEN 600 MG TABLET PO PRN (09:44)
[2017-04-08] MEDS: FLUCONAZOLE 100 MG TABLET PO SCH (09:44)
[2017-04-08] MEDS: GABAPENTIN 100 MG CAPSULE PO SCH ×3 (09:44→23:32)
[2017-04-08] MEDS: TRIAMTERENE/HCTZ 37.5 MG-25 MG TABLET PO SCH (09:45)
[2017-04-08] MEDS: LOSARTAN 50 MG TABLET PO SCH (09:45)
[2017-04-08] MEDS: ENOXAPARIN 40 MG/0.4 ML INJECTION SQ SCH (09:45)
[2017-04-08] MEDS: POLYETHYL GLYCOL 3350 17gm PACKET PO SCH ×2 (09:46→23:19)
[2017-04-08] MEDS: NS FLUSH BAG 500ml IV PRN (10:34)
--- NOTE | 2017-04-08 11:50 | Wound Care Progress Note ---
Wound Management - Patient Status Premedicated Prior to Dressing Change: Yes - Wound Anterior Abdomen Wound Present on Admission?: Yes Length: 7.5 Width: 37 Depth: 6.5 Wound Bed Appearance: Beefy Red Ayanna Wound Appearance: [place] Tunneling: No Undermining: No Drainage Description: Sanguineous Drainage Amount: Moderate Drainage Odor: Slight Odor Dressing Status: Changed Irrigant Solution: Saline Irrigant Packing Type: Woundvac Sponge Number of Packing Pieces Removed?: 4 Number of Packing Pieces Placed?: 2 Primary Dressing: Transparent Drape Secondary Dressing: Trac Pad Dressing Change Date: 04/08/17 Dressing Change Time: 08:30 Dressing Change Patient Tolerance: Tolerated Well (Good suction obtained, pt tolerated well.)
--- NOTE | 2017-04-08 14:20 | IRU Progress Note ---
- Subjective/Serverity of Illness Date: 04/08/17 Mr. Estrada was interviewed and examined in his room on inpatient rehabilitation. He continues to be very cooperative and works hard with therapy. He reports some decreased endurance although feels as though his strength is improving. His appetite is good. His bowels are moving. I visited with the wound care nurse this morning. Wound VAC was changed. The wound appears to be doing well according to wound care. He was able to tolerate the wound VAC change adequately. The patient feels as though he needs more endurance and improved ability to transfer. Brief therapy update: For physical therapy he is able to ambulate 175 feet with contact guard assist with a front-wheeled walker. Does require therapists assistance holding his pants up and the wound VAC. He is performing bed/chair/ wheelchair transfers with modified independent level. For occupational therapy grooming is standby assist along with bed/chair/wheelchair transfers. Upper body dressing is standby assist and lower body dressing is moderate assistance level. Update on medical issues were actively monitoring and managing as follows: 1. Deep soft tissue infection with Alex's gangrene in the groin: According to wound care nurse, the infection is doing well. He was seen by Dr. Michelle Nguyen who recommends continuing antibiotics at least 2 weeks after the most recent debridement. It is uncertain if he will need additional debridement or not. He remains afebrile and pain is adequately controlled. 2. Diabetes mellitus type 2, currently on insulin: His blood sugars are doing better. Occasional values up in the 200 range but usually they are running 130 or so. No hypoglycemic episodes are noted. 3. Morbid obesity: Continues on a 3200-calorie diet with consistent carbohydrates. Tolerating it well. 4. Obstructive sleep apnea (clinical diagnosis) requiring BiPAP: He is using his machine on a nightly basis. He does not have one at home. His insurance does not cover a sleep study. Dr. Cavanaugh is reportedly seeking coverage for a sleep study and/or a donated machine. 5. Hypertension: Blood pressures continue to run a bit high. Management per Dr. Rodarte. Exam Vital Signs: Temperature 97.9 F 04/08/17 08:00 Pulse Rate 58 L 04/08/17 08:00 Respiratory Rate 20 04/08/17 08:00 Blood Pressure 157/108 H 04/08/17 08:00 Pulse Oximetry 97 04/08/17 08:00 Height/Weight/BMI: Height 1.8 m Weight 242 kg Body Mass Index 74.4 - Constitutional Present: no acute distress, well nourished, well developed, morbidly obese, cooperative - Routine HEENT Exam Head: Present: normocephalic, atraumatic Eye: Present: EOMI, PERRL ENT: Present: mucous membranes moist, oropharynx clear, dentition normal - Routine Neck Exam Present: supple, full ROM - Routine Respiratory Exam Present: CTA bilaterally. Absent: rhonchi, wheezes, crackles - Routine Cardiovascular Exam Present: RRR, S1, S2. Absent: murmur - Routine Abdominal Exam Present: soft, normoactive bowel sounds, non distended. Absent: tenderness, distended, organomegaly - Routine Extremities Exam Present: no edema, normal capillary refill. Absent: cyanosis, clubbing - Routine Skin Exam Present: dry, warm, wounds (per wound care nurse, wound VAC wound looks good.) - Routine Neurological Exam Present: alert, oriented X3, CN II-XII intact - Routine Psychiatric Exam Present: normal affect, cooperative IRU A/P (1) Myopathy Current visit: Yes Status: Acute Continues to improve regarding his muscle strength. Ambulate better and transferring better. Continues to have need for continued therapy. He is cooperative. (2) Insulin dependent diabetes mellitus Current visit: No Status: Chronic Blood sugars are improved. Most of them are controlled although occasionally has values of around 200. No hypoglycemic spells are noted. (3) Alex's gangrene in male Current visit: No Status: Acute His infection appears to be under control. We will continue antibiotics per infectious disease. (4) Cellulitis Qualifiers: Site of cellulitis: other site Qualified Code(s): L03.818 - Cellulitis of other sites Current visit: No Status: Acute (5) Hypertension Qualifiers: Hypertension type: essential hypertension Qualified Code(s): I10 - Essential (primary) hypertension Current visit: Yes Status: Chronic Per primary care. DVT Prophylaxis: SCD's, Lovenox Resuscitation Status: Full Code - Course Hospital Course: Parker Manzo MD: 04/05/17 11:09 Patient is progressing with therapy and is very cooperative. Blood sugars are around 200. Blood pressures are running a bit high. 04/08/17 14:23 Patient is cooperative with therapy. Blood pressures running a bit too high. Blood sugars are improved. Wound appears to be doing well per wound care. Continue antibiotics. - Interventions to Obtain Goals PT Treatment Plan: Balance/Proprioception, Functional Activities, Gait Training , Patient/Family Education OT Treatment Plan: ADL (Basic Care), Balance Training, IADL, Pt./Family Education, Ther. Exercise for ADL Goals Progress/Modifications: Time spent with patient and on floor reviewing data and documentin min Barriers to dismissal: Weakness, endurance, wound VAC, need for intravenous antibiotic Medical decision-making: Patient is tolerating therapy well. He does not have evidence of worsening infection. Appreciate assistance of all consultants. Blood pressures are running a bit high but it is difficult to know accurate these are in view of his morbid obesity. His blood sugars are improved. He is eating and drinking adequately. 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 However he is improving and continues to require a multidisciplinary therapy approach.
[2017-04-09] MEDS: PIPERACILLIN/TAZOBACTAM 3.375 GM in NS 50 ML IV SCH ×4 (04:12→21:57)
[2017-04-09] MEDS: Oxycodone/Acetaminophen 5/325 1 TAB PO PRN ×4 (06:26→21:57)
[2017-04-09] MEDS: LEVOTHYROXINE 50 MCG TABLET PO SCH (06:27)
[2017-04-09] MEDS: OMEPRAZOLE 20 MG CAPSULE PO SCH (06:27)
[2017-04-09] MEDS: CLINDAMYCIN 150 MG CAPSULE PO SCH ×3 (08:51→20:28)
[2017-04-09] MEDS: FUROSEMIDE 80 MG TABLET PO SCH (08:51)
[2017-04-09] MEDS: TRIAMTERENE/HCTZ 37.5 MG-25 MG TABLET PO SCH (08:51)
[2017-04-09] MEDS: FLUCONAZOLE 100 MG TABLET PO SCH (08:51)
[2017-04-09] MEDS: LISINOPRIL 20 MG TABLET PO SCH (08:51)
[2017-04-09] MEDS: LOSARTAN 50 MG TABLET PO SCH (08:51)
[2017-04-09] MEDS: GABAPENTIN 100 MG CAPSULE PO SCH ×3 (08:52→20:27)
[2017-04-09] MEDS: INSULIN GLARGINE 100unit/ml INJECTION SQ SCH ×2 (08:52→20:28)
[2017-04-09] MEDS: ENOXAPARIN 40 MG/0.4 ML INJECTION SQ SCH (08:52)
[2017-04-09] MEDS: ASPIRIN 81 MG CHEWABLE TABLET PO SCH ×2 (08:53→20:28)
[2017-04-09] MEDS: INSULIN ASPART 100unit/ml INJECTION SQ SCH ×3 (08:53→17:28)
[2017-04-09] MEDS: POLYETHYL GLYCOL 3350 17gm PACKET PO SCH ×2 (08:54→20:29)
--- NOTE | 2017-04-09 09:55 | IRU Progress Note ---
- Subjective/Serverity of Illness Date: 04/09/17 Franky was interviewed and examined in the gymnasium area on inpatient rehabilitation. He reports that he is doing well. He is trying to cut back on his pain medications and is taking only one at a time instead of 2 tablets. We discussed his gabapentin dose. He has been on this in the past. We started on Saturday at a dose of 100 mg 3 times a day. It was then increased to 200 mg 3 times daily. He says that at the present time this appears to be adequate for him. His bowels are moving and he denies any diarrhea. He remains on clindamycin orally plus Zosyn intravenously. He remains afebrile. Appetite is adequate. He denies any chest pain or shortness of breath. Brief therapy update: For physical therapy is working on improving his core strength with increasing repetition of exercises. He was able to ambulate 208 feet with standby assist (previously was contact-guard assist at 175 feet) with a front-wheeled walker. Bed/chair/wheelchair transfers varied between modified independent to standby assist. Physical therapy is noticing barriers of reduced strength and endurance in general although he is improving. Occupational therapy also working with patient. Working on ADLs and IADLs. Made hot chocolate yesterday. Lower body dressing improved from moderate assistance to standby assistance. Transfers from sit to supine improved from standby assist to modified independent. Medically his blood sugars are stable. His blood pressures remain elevated. He is on both losartan and lisinopril as well as a diuretic. He remains afebrile and denies rigors. Exam Vital Signs: Temperature 97.8 F 04/09/17 08:00 Pulse Rate 82 04/09/17 08:00 Respiratory Rate 18 04/09/17 08:00 Blood Pressure 169/84 H 04/09/17 08:00 Pulse Oximetry 96 04/09/17 08:00 Height/Weight/BMI: Height 1.8 m Weight 242 kg Body Mass Index 74.4 - Constitutional Present: no acute distress, well nourished, well developed, morbidly obese - Routine HEENT Exam Eye: Present: EOMI ENT: Present: mucous membranes moist, oropharynx clear, dentition normal - Routine Neck Exam Present: supple - Routine Respiratory Exam Present: CTA bilaterally. Absent: respiratory distress, wheezes, crackles - Routine Cardiovascular Exam Present: RRR, S1, S2. Absent: murmur - Routine Abdominal Exam Present: soft, normoactive bowel sounds, non distended. Absent: tenderness - Routine Extremities Exam Present: no edema. Absent: cyanosis, clubbing - Routine Skin Exam Present: dry, warm - Routine Neurological Exam Present: alert, oriented X3, CN II-XII intact - Routine Psychiatric Exam Present: normal affect, cooperative, good insight, good judgment Results IRU - Labs Labs: Have reviewed chart information including blood work, vital signs etc. IRU A/P (1) Myopathy Current visit: Yes Status: Acute He continues to improve although continues to demonstrate evidence of critical illness myopathy with proximal muscle weakness. He is improving with regard to core muscle strengthening. Ambulatory ability is improving as well. (2) Insulin dependent diabetes mellitus Current visit: No Status: Chronic Blood sugars are reviewed and are stable at this time. No hypoglycemic spells are noted. 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 No evidence of diarrhea. (4) Cellulitis Qualifiers: Site of cellulitis: other site Qualified Code(s): L03.818 - Cellulitis of other sites Current visit: No Status: Acute (5) Hypertension Qualifiers: Hypertension type: essential hypertension Qualified Code(s): I10 - Essential (primary) hypertension Current visit: Yes Status: Chronic Blood pressures continue to be elevated. He is on multiple agents. Per . DVT Prophylaxis: SCD's, Lovenox Resuscitation Status: Full Code - Course Hospital Course: Parker Manzo MD: 04/05/17 11:09 Patient is progressing with therapy and is very cooperative. Blood sugars are around 200. Blood pressures are running a bit high. 04/08/17 14:23 Patient is cooperative with therapy. Blood pressures running a bit too high. Blood sugars are improved. Wound appears to be doing well per wound care. Continue antibiotics. 04/09/17 09:59 He is making progress as described above. Improving in sit to supine transfers and lower body dressing as well as ambulatory ability and strength. Blood sugars look good. Blood pressures remain elevated. - Interventions to Obtain Goals PT Treatment Plan: Balance/Proprioception, Functional Activities, Gait Training , Patient/Family Education OT Treatment Plan: ADL (Basic Care), Balance Training, IADL, Pt./Family Education, Ther. Exercise for ADL Goals Progress/Modifications: Time spent with patient and on floor reviewing data and documentin min Barriers to dismissal: Strength, endurance, easy fatigability, medical issues requiring intravenous antibiotics and close medical monitoring. Medical decision-making: I discussed with Mr. Estrada today at length the issue of his pain medication. He is trying to cut back from 2 tablets at a time to 1 tablet and seems to be tolerating this well. Does not have evidence of active/ongoing infection and he is on antibiotics. ID recommends continuing the antibiotics for at least 2 weeks after the most recent debridement. Last debridement was last about 4-5 days ago. Wound VAC was changed yesterday and, per wound care nurse, the wound looks good. He does not have evidence of side effects from the antibiotics in terms of diarrhea nor rash. His appetite is good. Blood sugars are good although blood pressure remains elevated.
--- NOTE | 2017-04-09 13:57 | IRU Team Meeting ---
IRU Team Meeting - Nursing Bladder Assistive Devices Utilized:: Medication, Catheter Bladder Management Level of Assist: Total Assistance Bowel Assistive Devices Utilized:: Medication, Bedside Commode Bowel Management Level of Assist: Modified Independent Vital Signs: Vital Signs - 24 hr 04/08/17 16:00 04/08/17 22:38 04/09/17 08:00 Temperature 98.2 F 97.7 F 97.8 F Pulse Rate 80 65 82 Respiratory Rate 18 16 18 Blood Pressure 143/89 H 157/90 H 169/84 H Pulse Oximetry 95 96 96 Current Medications: Acetaminophen (Tylenol) 325 mg PO Q5H PRN PRN Reason: Discomfort Albuterol Sulfate (Proventil Neb (0.083%)) 2.5 mg AEROSOL PRN PRN PRN Reason: Wheezing Aspirin (Asa) 81 mg PO BID [facility] Last Admin: 04/09/17 08:53 Dose: 81 mg Bisacodyl (Dulcolax) 10 mg RECTALLY DAILY PRN PRN Reason: Constipation Calcium Carbonate (Tums) 500 - 1,000 mg PO PRN PRN Clindamycin HCl (Cleocin) 450 mg PO TID [facility] Last Admin: 04/09/17 08:51 Dose: 450 mg Enoxaparin Sodium (Lovenox) 40 mg SQ DAILY [facility] Last Admin: 04/09/17 08:52 Dose: 40 mg Fluconazole (Diflucan 100 Mg Tablet) 400 mg PO DAILY [facility] Last Admin: 04/09/17 08:51 Dose: 400 mg Furosemide (Lasix) 80 mg PO QAM [facility] Last Admin: 04/09/17 08:51 Dose: 80 mg Gabapentin (Neurontin) 200 mg PO TID [facility] Last Admin: 04/09/17 08:52 Dose: 200 mg Glucose (Glutose 15) 37.5 gm PO PRN PRN PRN Reason: Hypoglycemia Piperacillin Sod/Tazobactam (Sod 3.375 gm/ Sodium Chloride) 50 mls @ 100 mls/ hr IV Q6H [facility] Last Admin: 04/09/17 10:07 Dose: 100 mls/hr Ibuprofen (Motrin) 600 mg PO Q6H PRN PRN Reason: Pain Last Admin: 04/08/17 09:44 Dose: 600 mg Insulin Aspart (Novolog) 14 unit SQ WM [facility] Last Admin: 04/09/17 12:30 Dose: 14 unit Insulin Glargine (Lantus) 18 unit SQ BID [facility] Last Admin: 04/09/17 08:52 Dose: 18 unit Levothyroxine Sodium (Synthroid) 50 mcg PO ACB [facility] Last Admin: 04/09/17 06:27 Dose: 50 mcg Lisinopril (Prinivil) 20 mg PO DAILY [facility] Last Admin: 04/09/17 08:51 Dose: 20 mg Losartan Potassium (Cozaar) 50 mg PO DAILY [facility] Last Admin: 04/09/17 08:51 Dose: 50 mg Nystatin (Mycostatin) 1 applic TP BID [facility] Last Admin: 04/09/17 08:53 Dose: 1 applic Omeprazole (Prilosec) 20 mg PO ACB [facility] Last Admin: 04/09/17 06:27 Dose: 20 mg Oxycodone/Acetaminophen (Percocet 5/325) 1 - 2 tab PO Q4H PRN PRN Reason: Pain Last Admin: 04/09/17 10:15 Dose: 1 tab Polyethylene Glycol (Miralax) 17 gm PO BID [facility] Last Admin: 04/09/17 08:54 Dose: Not Given Potassium Chloride (K-Dur 20 Meq Tablet) 20 meq PO BIDWM [facility] Last Admin: 04/09/17 08:53 Dose: 20 meq Sodium Chloride (Normal Saline) 500 ml IV PRN PRN Last Admin: 04/08/17 10:34 Dose: 500 ml Sodium Chloride (Iv Flush) 10 ml IV PRN PRN PRN Reason: Flushing Last Admin: 04/08/17 10:34 Dose: 10 ml Triamterene/HCTZ (Maxzide-25 Eqv) 1 tab PO DAILY [facility] Last Admin: 04/09/17 08:51 Dose: 1 tab Current Medical Issues: Alex's gangrene, wound care, hypertension, DM II on insulin Comments: I certify that I personally led the interdisciplinary team meeting and agree with comments, barriers and goals indicated. Team meeting was held in the patient's room with the patient and the following family members present: Patient alone Franky is very cooperative and making a lot of progress. He is trying to cut back on his pain medication. He finds it difficult to ambulate with the wound VAC in place as anticipated. His endurance is fairly good. He has not been running a fever. He remains on intravenous antibiotics 4 times daily. No evidence of side effects in terms of diarrhea or rash. - Dietary Patient is seen by dietitian. He remains on approximately 3000-calorie consistent carbohydrate diet with double protein. Patient was given diabetic education while on acute care. - Physical Therapy Bed, Chair, Wheelchair Transfer Assist: Modified Independent Ambulation Ability: Modified Independent Ambulation Distance: 155 Stair Climbing Ability: Total Assistance, 1 Person Assist Number of Steps Climbed: 1 Car Transfer Ability: Patient Refuses Comments: He has done well and has met goals for his balance. He continues to have some weakness in postural stabilizers in the hips back and pelvis. Continues to have a bit of excessive fatigue with activity. However he does demonstrate good safety awareness and is functioning at modified independent level for transfers and gait. - Occupational Therapy Eating Ability: Independent Grooming Ability: Modified Independent Bathing Ability: Independent Upper Body Dressing Ability: Stand By Assist/Supervision Lower Body Dressing Ability: Minimal Assistance Tub Transfer Assist: Patient Unsafe/Unable Toileting Assist: Modified Independent Toilet Transfer Assist: Modified Independent Comments: He has productive a lot of effort for occupational therapy as well. He has demonstrated good efforts in treatment sessions. He is making good progress toward occupational therapy goals. He requires minimum assistance with lower body dressing and with managing the wound VAC. - Goals Physical Therapy Goals: 04/09/17 Goals: 1.) Demonstrate three 8 inch steps with use of front wheeled walker. 2.) Walk 15 feet with no assistive device with set -up assist for wound vac. Occupational Therapy Goals: OT goals 04/09/17: 1.) LB dressing w/ mod I. 2.) Tub transfer w/ mod I. 3.) Sustained standing for 10 min during ADL/IADL task. - Barriers to Discharge Barriers to Attaining Goals: Endurance, Pain Control - Care Plan Anticipated Length of Stay (days): 3 Anticipated DC Destination: Home, Self Care, Home Health Service I have led this team conference and agree with the plan. Interventions/Goals: Patient has progressed with therapy. However he remains on intravenous antibiotics and has the wound VAC in place. We will contact Dr. Esposito or associate with regard to plans. He will continue to require intravenous antibiotics for 2 weeks after the most recent debridement which would be through approximately April 17.
[2017-04-10] MEDS: PIPERACILLIN/TAZOBACTAM 3.375 GM in NS 50 ML IV SCH ×4 (03:56→21:42)
[2017-04-10] MEDS: OMEPRAZOLE 20 MG CAPSULE PO SCH ×2 (04:48→05:31)
[2017-04-10] MEDS: LEVOTHYROXINE 50 MCG TABLET PO SCH ×2 (04:48→05:30)
[2017-04-10] MEDS: Oxycodone/Acetaminophen 5/325 1 TAB PO PRN ×3 (07:17→21:57)
[2017-04-10] MEDS: CLINDAMYCIN 150 MG CAPSULE PO SCH ×3 (08:08→21:32)
[2017-04-10] MEDS: FLUCONAZOLE 100 MG TABLET PO SCH (08:09)
[2017-04-10] MEDS: LOSARTAN 50 MG TABLET PO SCH (08:09)
[2017-04-10] MEDS: TRIAMTERENE/HCTZ 37.5 MG-25 MG TABLET PO SCH (08:09)
[2017-04-10] MEDS: LISINOPRIL 20 MG TABLET PO SCH (08:09)
[2017-04-10] MEDS: GABAPENTIN 100 MG CAPSULE PO SCH ×3 (08:10→21:29)
[2017-04-10] MEDS: INSULIN GLARGINE 100unit/ml INJECTION SQ SCH ×2 (08:10→21:42)
[2017-04-10] MEDS: ASPIRIN 81 MG CHEWABLE TABLET PO SCH ×2 (08:10→21:29)
[2017-04-10] MEDS: ENOXAPARIN 40 MG/0.4 ML INJECTION SQ SCH (08:10)
[2017-04-10] MEDS: FUROSEMIDE 80 MG TABLET PO SCH (08:10)
[2017-04-10] MEDS: POLYETHYL GLYCOL 3350 17gm PACKET PO SCH ×2 (08:11→21:33)
[2017-04-10] MEDS: INSULIN ASPART 100unit/ml INJECTION SQ SCH ×3 (08:11→18:06)
--- NOTE | 2017-04-10 08:59 | ID Progress Note ---
Subjective Date: 04/10/17 Subjective: Mr. Estrada reports that he started having bladder spasms last night and he's still having pain this am. He denies fever, chills, N/V/D. States Dr. Esposito is going to close up his wound on Saturday. Exam Vital Signs: Temperature 98.3 F 04/09/17 19:54 Pulse Rate 70 04/09/17 19:54 Respiratory Rate 20 04/09/17 19:54 Blood Pressure 143/86 H 04/09/17 19:54 Pulse Oximetry 96 04/09/17 19:54 Height/Weight/BMI: Height 1.8 m Weight 228 kg Body Mass Index 74.4 - Constitutional Present: no acute distress, morbidly obese - Routine HEENT Exam Head: Present: normocephalic, atraumatic Eye: Present: EOMI, PERRL ENT: Present: mucous membranes moist, oropharynx clear - Routine Neck Exam Present: supple - Routine Respiratory Exam Present: CTA bilaterally - Routine Cardiovascular Exam Present: RRR - Routine Abdominal Exam Present: soft, normoactive bowel sounds, non distended, non tender - Routine Exam Comments: Garcia in place, urine appears clear. Wound VAC on wound over mons pubis area. 1 JAH drain in - Routine Extremities Exam Absent: cyanosis, clubbing, edema - Routine Skin Exam Absent: rash Comments: PICC site ok - Routine Neurological Exam Present: alert, oriented X3, CN II-XII intact. Absent: motor deficit - Routine Psychiatric Exam Present: normal affect Results - Labs CBC & Chem 7: 04/08/17 04:01 04/08/17 04:01 Impression: Sepsis secondary to skin/soft tissue source. Alex's gangrene, with L groin abscess, s/p debridement 03/17, 03/21, 03/22, , 03/28. S/p I&D with partial wound closure 04/04/17. Wound culture 03/16 with 2 strains of GPRs, both sensitive to Amox/clavulanate and Zosyn, one is R to cefazolin. Previous wound culture with S. gordonii, GPR and C. albicans Morbid obesity DM II, newly diagnosed, with Hgb A1C>15. Psoriasis Probable hydradenitis suppurativa Tobacco use Questionable Vanco allergy, also sulfa allergy Recommendation: Will stop the fluconazole today. Continue oral clindamycin and IV Zosyn for now. I think after his wound closure procedure he could be changed to Augmentin.
[2017-04-10] MEDS: SALINE FLUSH 10ml SYRINGE IV PRN ×2 (09:40→15:42)
[2017-04-10] MEDS: PHENAZOPYRIDINE 95 MG TABLET PO SCH ×3 (09:40→18:06)
--- NOTE | 2017-04-10 11:49 | Progress Note ---
DATE 04/09/2017 SUBJECTIVE Patient is lying down in Room 170 on the Inpatient Rehab Unit. He seems happy. He doesn't have any specific complaint today. He has met pretty much all the goals of rehab. I did receive a phone call from Dr. Manzo, occupational therapist rehab manager, yesterday that they plan on dismissing him home on Saturday. PHYSICAL EXAMINATION VITAL SIGNS: Blood pressure 142/89 with a pulse of 80. GENERAL: He looks comfortable and cheerful. NECK: Supple. LUNGS: Clear bilaterally. CARDIOVASCULAR: Regular rate and rhythm. ABDOMEN: Soft. EXTREMITIES: Edema is about the same. NEURO EXAM: Grossly intact. LABORATORY None. ASSESSMENT 1. Sepsis secondary to skin and soft tissue source. 2. Asymptomatic bradycardia. This is actually resolving spontaneously. 3. Alex's gangrene with multiple surgical interventions. 4. Type 2 diabetes - needing insulin. 5. Severe obesity, chronic issue. 6. Hypertension. Blood pressure overall is well controlled. 7. Chronic leg edema due to chronic venous insufficiency. PLAN I spoke with Dr. Esposito. He thinks that he would like to take patient to surgery on Saturday and close up all the previously debrided lesions. Otherwise, he will continue with IV antibiotics as currently in place. BULMARO
[2017-04-10] MEDS: NS FLUSH BAG 500ml IV PRN (15:42)
[2017-04-11] MEDS: PIPERACILLIN/TAZOBACTAM 3.375 GM in NS 50 ML IV SCH ×4 (04:10→21:30)
[2017-04-11] MEDS: OMEPRAZOLE 20 MG CAPSULE PO SCH ×2 (05:13→07:22)
[2017-04-11] MEDS: LEVOTHYROXINE 50 MCG TABLET PO SCH ×2 (05:14→07:22)
[2017-04-11] MEDS: Oxycodone/Acetaminophen 5/325 1 TAB PO PRN ×3 (07:23→21:28)
[2017-04-11] MEDS: INSULIN ASPART 100unit/ml INJECTION SQ SCH ×3 (08:52→17:35)
[2017-04-11] MEDS: ASPIRIN 81 MG CHEWABLE TABLET PO SCH ×2 (08:53→21:29)
[2017-04-11] MEDS: PHENAZOPYRIDINE 95 MG TABLET PO SCH ×3 (08:53→17:35)
[2017-04-11] MEDS: TRIAMTERENE/HCTZ 37.5 MG-25 MG TABLET PO SCH (08:54)
[2017-04-11] MEDS: POLYETHYL GLYCOL 3350 17gm PACKET PO SCH ×2 (08:54→21:30)
[2017-04-11] MEDS: FLUCONAZOLE 100 MG TABLET PO SCH (08:54)
[2017-04-11] MEDS: FUROSEMIDE 80 MG TABLET PO SCH (08:55)
[2017-04-11] MEDS: CLINDAMYCIN 150 MG CAPSULE PO SCH ×3 (08:55→21:29)
[2017-04-11] MEDS: LISINOPRIL 20 MG TABLET PO SCH (08:55)
[2017-04-11] MEDS: GABAPENTIN 100 MG CAPSULE PO SCH ×3 (08:55→21:29)
[2017-04-11] MEDS: LOSARTAN 50 MG TABLET PO SCH (08:55)
[2017-04-11] MEDS: ENOXAPARIN 40 MG/0.4 ML INJECTION SQ SCH (08:56)
--- NOTE | 2017-04-11 09:47 | IRU Progress Note ---
- Subjective/Serverity of Illness Date: 04/11/17 Mr. Estrada had quite a bit more pain yesterday in the groin, particularly at the catheter site. For that reason he was not able to participate with physical therapy. He was able to participate with occupational therapy. He has not been running any fever. He was seen by Dr. Michelle Nguyen with infectious disease yesterday. She recommended stopping fluconazole, continuing oral clindamycin and IV Zosyn until closure happens which hopefully will be Saturday. At that point she suggests switching to Augmentin. He continues to have a good appetite. He is having bowel movements. He denies any chest pain or shortness of breath. Brief therapy update: Did note additional pain in the groin yesterday possibly related to catheter. Bathing however improved from minimum assistance to standby assistance. Upper body dressing improved from standby assistance to independent. Lower body dressing remains at standby assistance level. Physical therapy was not able to work with him due to pain. Update on medical issues were actively monitoring and managing as follows: 1. Deep soft tissue infection with Alex's gangrene in the groin: No evidence of worsening infection. Fluconazole has been discontinued. He remains on oral clindamycin and intravenous Zosyn. Plans are to send him home with the Zosyn and oral clindamycin until wound closure on Saturday. 2. Diabetes mellitus type 2, currently on insulin: Blood sugars are reviewed and overall look good. 3. Morbid obesity: Appetite remains good. Remains on 3200-calorie diet with consistent carbohydrate intake. 4. Obstructive sleep apnea (clinical diagnosis) requiring BiPAP: Efforts are underway to obtain a felix machine for him. Uncertain if that will happen prior to dismissal however. 5. Hypertension: His blood pressures are improved in the 140 range. Exam Vital Signs: Temperature 97.4 F 04/11/17 00:00 Pulse Rate 54 L 04/11/17 00:00 Respiratory Rate 18 04/11/17 00:00 Blood Pressure 143/82 H 04/11/17 00:00 Pulse Oximetry 98 04/11/17 00:00 Height/Weight/BMI: Height 1.8 m Weight 228 kg Body Mass Index 74.4 - Constitutional Present: mild distress, well nourished, well developed, morbidly obese, cooperative - Routine HEENT Exam Head: Present: normocephalic Eye: Present: EOMI ENT: Present: mucous membranes moist, dentition normal - Routine Neck Exam Present: supple - Routine Respiratory Exam Present: CTA bilaterally. Absent: wheezes - Routine Cardiovascular Exam Present: RRR, S1, S2. Absent: murmur - Routine Abdominal Exam Present: soft, normoactive bowel sounds, non distended. Absent: tenderness - Routine Extremities Exam Present: no edema - Routine Skin Exam Present: intact, dry, warm - Routine Neurological Exam Present: alert, oriented X3, CN II-XII intact - Routine Psychiatric Exam Present: normal affect, cooperative Results IRU - Labs Labs: I have reviewed chart dated including other providers notes. IRU A/P (1) Myopathy Current visit: Yes Status: Acute Patient is improving in his transfers and strength. He is felt to be stable for dismissal tomorrow. (2) Insulin dependent diabetes mellitus Current visit: No Status: Chronic Blood sugars are reasonably well controlled. He will continue insulin at home. 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 Appreciate assistance of hospitalists and Dr. Selina Nguyen. (4) Cellulitis Qualifiers: Site of cellulitis: other site Qualified Code(s): L03.818 - Cellulitis of other sites Current visit: No Status: Acute (5) Hypertension Qualifiers: Hypertension type: essential hypertension Qualified Code(s): I10 - Essential (primary) hypertension Current visit: Yes Status: Chronic Blood pressures are improved. DVT Prophylaxis: SCD's, Lovenox Resuscitation Status: Full Code - Course Hospital Course: Parker Manzo MD: 04/05/17 11:09 Patient is progressing with therapy and is very cooperative. Blood sugars are around 200. Blood pressures are running a bit high. 04/08/17 14:23 Patient is cooperative with therapy. Blood pressures running a bit too high. Blood sugars are improved. Wound appears to be doing well per wound care. Continue antibiotics. 04/09/17 09:59 He is making progress as described above. Improving in sit to supine transfers and lower body dressing as well as ambulatory ability and strength. Blood sugars look good. Blood pressures remain elevated. 04/11/17 09:48 Blood pressures are improved. Blood sugars are doing well. Continue intravenous Zosyn at home with home health to assist. Did have worsening pain yesterday but better today. - Interventions to Obtain Goals PT Treatment Plan: Balance/Proprioception, Functional Activities, Gait Training , Patient/Family Education OT Treatment Plan: ADL (Basic Care), Balance Training, IADL, Pt./Family Education, Ther. Exercise for ADL Goals Progress/Modifications: Time spent with patient and on floor reviewing data and documentin min Barriers to dismissal: pain in groin, IV abx, endurance Medical decision-making: Have discussed case in detail with patient and outsole caser Carly. Extensive efforts have been undertaken to find him a home BiPAP machine but it looks like that may or may not happen. I have assessed him physically and feels as though he is stable to return home. He states that he feels confident that he can give the Zosyn himself but he also have home health assistance. He will also continue PT and OT. Blood sugars are improved. Etiology of pain not clear yesterday. Appears to be better today. Perhaps it is due to catheter and wound VAC etc. In any event it does not appear to be evidence of worsening infection. Continue current course. Anticipate safe dismissal tomorrow.
[2017-04-11] MEDS: INSULIN GLARGINE 100unit/ml INJECTION SQ SCH ×2 (10:28→21:29)
[2017-04-11 10:47] VITALS: RESP 20
--- NOTE | 2017-04-11 11:47 | Wound Care Progress Note ---
Wound Center Progress Note: Pt seen for wound vac change, seen with Sarah HARRIS and Dr. Esposito. Pt finishing PT, pt lying in bed, no complaints of pain. Wound improving. Wound bed: red granulation tissue, small active serosanguineous drainage. Periwound: blanchable erythema, moist. Canister removed had 350 mL serosanguineous drainage , new canister placed. Wound vac dressing removed, wound cleaned, thomas d/c'ed per order, and vac foam dressing replaced. 3 pcs of black foam placed into wound , vac drape applied, foam dressing collapsed without leaks. Wound vac running at 125 mm Hg continuous pressure. Pt tolerated procedure well. Will visit with pt tomorrow to switch to home vac for preparation for discharge.
--- NOTE | 2017-04-11 16:02 | Progress Note ---
DATE 04/11/2017 ERI Wilkins is about to go for occupational therapy. He seems excited. He has no specific complaints at this time. He was having some bladder spasms which have discontinued at this time. He is feeling much better. The plan is for him to go home tomorrow and come back to [facility] for outpatient surgical debridement by Dr. Esposito. PHYSICAL EXAM GENERAL: The patient looks comfortable, in no acute distress. VITAL SIGNS: Pulse is running between 54 to 66. Blood pressure 142/82. Temperature 97.4. Respirations 18. Oxygen saturation 98% on room air. NECK: Supple. CHEST: Lungs are clear. CARDIOVASCULAR: Regular rate and rhythm. ABDOMEN: Soft. EXTREMITIES: Chronic edema. No significant changes. ASSESSMENT 1. Sepsis secondary to skin and soft tissue source. 2. Generalized weakness - improved with physical therapy. 3. Asymptomatic bradycardia. 4. Alex's gangrene with multiple surgical interventions. 5. Type II diabetes mellitus - needing insulin. 6. Severe obesity - chronic issues. 7. Hypertension. Blood pressure overall is improved. 8. Chronic leg edema due to chronic venous insufficiency. PLAN Per Dr. Manzo he will be dismissed tomorrow. I would like to see him back in the office in one week. He will follow up with Dr. Esposito for more surgical intervention of his left groin wound. I am checking out to the hospitalist program at 4 p.m. today. I have checked this patient out to Dr. Jaime this afternoon in person. BULMARO
[2017-04-12] MEDS: PIPERACILLIN/TAZOBACTAM 3.375 GM in NS 50 ML IV SCH (03:38)
[2017-04-12] MEDS: Oxycodone/Acetaminophen 5/325 1 TAB PO PRN ×2 (05:44→12:14)
[2017-04-12] MEDS: LEVOTHYROXINE 50 MCG TABLET PO SCH (05:44)
[2017-04-12] MEDS: OMEPRAZOLE 20 MG CAPSULE PO SCH (05:44)
[2017-04-12 07:59] VITALS: BP 150/70; PULSE 50; TEMP 98.1; O2SAT 98
[2017-04-12] MEDS: INSULIN ASPART 100unit/ml INJECTION SQ SCH ×2 (08:34→12:14)
[2017-04-12] MEDS: FLUCONAZOLE 100 MG TABLET PO SCH (08:35)
[2017-04-12] MEDS: ASPIRIN 81 MG CHEWABLE TABLET PO SCH (08:35)
[2017-04-12] MEDS: ENOXAPARIN 40 MG/0.4 ML INJECTION SQ SCH (08:36)
[2017-04-12] MEDS: CLINDAMYCIN 150 MG CAPSULE PO SCH (08:36)
[2017-04-12] MEDS: GABAPENTIN 100 MG CAPSULE PO SCH ×2 (08:36→15:17)
[2017-04-12] MEDS: LOSARTAN 50 MG TABLET PO SCH (08:37)
[2017-04-12] MEDS: LISINOPRIL 20 MG TABLET PO SCH (08:37)
[2017-04-12] MEDS: FUROSEMIDE 80 MG TABLET PO SCH (08:37)
[2017-04-12] MEDS: POLYETHYL GLYCOL 3350 17gm PACKET PO SCH (08:38)
[2017-04-12] MEDS: TRIAMTERENE/HCTZ 37.5 MG-25 MG TABLET PO SCH (08:38)
[2017-04-12] MEDS: INSULIN GLARGINE 100unit/ml INJECTION SQ SCH (08:44)
--- NOTE | 2017-04-12 09:27 | ID Progress Note ---
Subjective Date: 04/12/17 Subjective: Mr. Estrada reports that his Thomas catheter was removed yesterday. He states his bladder spasms stopped a couple of hours after that. He denies any fevers or chills or nausea. He states that he is feeling well. Plans are to discharge him today and then he will return on Saturday for procedure to close up his wound. He thinks that procedure will be done as an outpatient. He is requesting that the PICC remain in place until that procedure on Saturday. Exam Vital Signs: Temperature 98.1 F 04/12/17 07:58 Pulse Rate 50 L 04/12/17 07:58 Respiratory Rate 20 04/12/17 07:58 Blood Pressure 150/70 H 04/12/17 07:58 Pulse Oximetry 98 04/12/17 07:58 Height/Weight/BMI: Height 1.8 m Weight 228 kg Body Mass Index 74.4 - Constitutional Present: no acute distress, morbidly obese - Routine HEENT Exam Head: Present: normocephalic, atraumatic Eye: Present: EOMI, PERRL ENT: Present: mucous membranes moist, oropharynx clear - Routine Neck Exam Present: supple - Routine Respiratory Exam Present: CTA bilaterally - Routine Cardiovascular Exam Present: RRR - Routine Abdominal Exam Present: soft, normoactive bowel sounds, non distended, non tender - Routine Exam Comments: No thomas. Wound VAC over groin wound - Routine Extremities Exam Absent: cyanosis, clubbing, edema - Routine Skin Exam Present: intact. Absent: rash Comments: LUE PICC site ok - Routine Neurological Exam Present: alert, oriented X3, CN II-XII intact. Absent: motor deficit - Routine Psychiatric Exam Present: normal affect, normal thought process Results - Labs CBC & Chem 7: 04/08/17 04:01 04/08/17 04:01 Impression: Sepsis secondary to skin/soft tissue source. Alex's gangrene, with L groin abscess, s/p debridement 03/17, 03/21, 03/22, , 03/28. S/p I&D with partial wound closure 04/04/17. Wound culture 03/16 with 2 strains of GPRs, both sensitive to Amox/clavulanate and Zosyn, one is R to cefazolin. Previous wound culture with S. gordonii, GPR and C. albicans Morbid obesity DM II, newly diagnosed, with Hgb A1C>15. Psoriasis Probable hydradenitis suppurativa Tobacco use Questionable Vanco allergy, also sulfa allergy Recommendation: I'll change him to Augmentin 875mg po bid for 2 weeks. I discussed with him that the most common side effects are upset stomach and loose stools. If he has profuse watery diarrhea he should call us or call his doctor. I'm okay with leaving the PICC line in until Saturday however I would recommend that it is removed after his procedure on Saturday. I would like to see him in follow-up in the wound clinic on April 24. I will stop the clindamycin and fluconazole.
[2017-04-12] MEDS ORDERED: AMOX/CLAV 875 MG/125 MG TABLET PO SCH (09:30)
--- NOTE | 2017-04-12 09:43 | IRU Progress Note ---
- Subjective/Serverity of Illness Date: 04/12/17 Mr. Estrada has done very well with therapy. Therapy notes are reviewed. He is felt to be stable for dismissal to home today. I have also discussed the case with Dr. Rodarte. The patient was having quite a few bladder spasm yesterday. Catheter was removed and the spasms went away. Urinalysis is unremarkable. Patient remains afebrile. His appetite is good. His blood sugars are well controlled. He was seen by Dr. Nguyen today. She has discontinued the Zosyn but we will leave the PICC line in. I will advise home health to flush that according to protocol. He will go home on Augmentin but not clindamycin nor fluconazole. Exam Vital Signs: Temperature 98.1 F 04/12/17 07:58 Pulse Rate 50 L 04/12/17 07:58 Respiratory Rate 20 04/12/17 07:58 Blood Pressure 150/70 H 04/12/17 07:58 Pulse Oximetry 98 04/12/17 07:58 Height/Weight/BMI: Height 1.8 m Weight 228 kg Body Mass Index 74.4 - Constitutional Present: no acute distress, well nourished, well developed, morbidly obese - Routine HEENT Exam Head: Present: normocephalic Eye: Present: EOMI ENT: Present: mucous membranes moist, dentition normal - Routine Neck Exam Present: supple - Routine Respiratory Exam Present: CTA bilaterally. Absent: dyspnea, decreased breath sounds, respiratory distress, wheezes, crackles - Routine Cardiovascular Exam Present: RRR, S1, S2. Absent: murmur - Routine Abdominal Exam Present: soft, normoactive bowel sounds, non distended. Absent: tenderness - Routine Extremities Exam Present: no edema. Absent: cyanosis, clubbing - Routine Skin Exam Present: dry, warm, wounds (wound VAC in place) Comments: Inspection of PICC line site indicates no evidence of erythema nor infection. - Routine Neurological Exam Present: alert, oriented X3, CN II-XII intact - Routine Psychiatric Exam Present: normal affect, cooperative, good insight, good judgment Results IRU - Labs Labs: Have review chart dated as well as other providers notes. IRU A/P (1) Myopathy Current visit: Yes Status: Acute He will continue to receive physical therapy and occupational therapy via home health. He has significantly improved as noted. (2) Insulin dependent diabetes mellitus Current visit: No Status: Chronic Blood sugars are well controlled. He is planning to monitor his blood sugars at home and aortic has a machine and test strips. 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 (4) Cellulitis Qualifiers: Site of cellulitis: other site Qualified Code(s): L03.818 - Cellulitis of other sites Current visit: No Status: Acute (5) Hypertension Qualifiers: Hypertension type: essential hypertension Qualified Code(s): I10 - Essential (primary) hypertension Current visit: Yes Status: Chronic DVT Prophylaxis: SCD's, Lovenox Resuscitation Status: Full Code - Course Hospital Course: Parker Manzo MD: 04/05/17 11:09 Patient is progressing with therapy and is very cooperative. Blood sugars are around 200. Blood pressures are running a bit high. 04/08/17 14:23 Patient is cooperative with therapy. Blood pressures running a bit too high. Blood sugars are improved. Wound appears to be doing well per wound care. Continue antibiotics. 04/09/17 09:59 He is making progress as described above. Improving in sit to supine transfers and lower body dressing as well as ambulatory ability and strength. Blood sugars look good. Blood pressures remain elevated. 04/11/17 09:48 Blood pressures are improved. Blood sugars are doing well. Continue intravenous Zosyn at home with home health to assist. Did have worsening pain yesterday but better today. 04/12/17 09:[address] Nguyen today. Zosyn discontinued. No further bladder spasms since catheter out. He will go home on Augmentin but no clindamycin. - Interventions to Obtain Goals PT Treatment Plan: Balance/Proprioception, Functional Activities, Gait Training , Patient/Family Education OT Treatment Plan: ADL (Basic Care), Balance Training, IADL, Pt./Family Education, Ther. Exercise for ADL
--- NOTE | 2017-04-12 12:18 | Discharge Summary ---
Discharge Information Date of admission: 04/03/17 17:26 Anticipated date of discharge: 04/12/17 Attending Physician: Parker Manzo MD Primary care physician: Ephraim Rodarte MD Consults: 04/03/17 19:31 Physician Consult [CONS] Routine Consulting Provider: Ephraim Rodarte Reason For Exam: medical management Ordering Provider has Notified Public Relations Account Executive: No Physician Consult [CONS] Routine Consulting Provider: Dave Esposito Reason For Exam: surgical management Ordering Provider has Notified Public Relations Account Executive: No 04/03/17 20:07 Wound Vein Clinic Consult [CONS] Routine Reason for consultation: wound vac to groin 04/04/17 12:16 Dietary Consult [CONS] Routine Comment: Reason For Exam: diabetes mellitus, morbid obesity Physician Consult [CONS] Routine Consulting Provider: Michelle Nguyen Reason For Exam: cellulitis and abcess Ordering Provider has Notified Public Relations Account Executive: No - Discharge Diagnosis (1) Myopathy Status: Acute (2) Insulin dependent diabetes mellitus Status: Chronic (3) 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 Critical illness myopathy 2. Diabetes mellitus currently on insulin, controlled 3. Alex's gangrene drain in male 4. Cellulitis of groin 5. Benign essential hypertension 6. Morbid obesity - Laboratory Labs: 04/08/17 04:01 04/08/17 04:01 History of Present Illness HPI: Mr. Estrada is a 37-year-old male followed by Dr. Rodarte. He initially presented to the emergency department with weakness and was found to have a blood sugar over 700 on 03/11/2017. He was admitted and started on insulin. He then went home and a left groin "boil" became worse and worse, ultimately causing significant pain and swelling. He was readmitted on 03/16/2017. He was managed by Dr. Esposito as well as Dr. Rodarte. He was seen by Dr. Michelle Nguyen, Infectous Disease. He was placed on Zosyn, clindamycin and fluconazole. He underwent multiple debridements during that hospitalization. During this time he was at bedrest much of the time. He developed critical illness myopathy characterized by proximal muscle weakness. He was admitted to acute inpatient rehabilitation because of critical illness myopathy on 04/03/2017. Hospital Course This is a general summary of the patient's hospital course. For more details refer to the complete medical record. The patient was admitted to acute inpatient rehabilitation on 04/03/2017 for a multidisciplinary approach. He had developed critical illness myopathy characterized by lower extremity weakness. In addition he had multiple medical problems including need for wound care and management including a wound VAC, diabetes mellitus and hypertension. He was followed by Dr. Rodarte as well as Dr. Manzo. In addition, wound care service and Dr. Esposito followed the patient. He was seen by occupational therapy. The following functional changes were identified: Eating was independent upon admission and dismissal. Grooming was initially standby assist and ultimately modified independent. Bathing ability was initially minimum assistance and then standby assistance to minimum assistance. Upper body dressing was standby assist initially and independent ultimately. Lower body dressing was initially minimum assistance and ultimately modified independent. Toileting assistance was initially modified independent and ultimately standby assist. Toilet transfer assist was initially modified independent and was the same upon dismissal. Bed/chair/wheelchair transfers were standby assistance on admission and dismissal. Patient was seen by physical therapy. Bed/chair/wheelchair transfers were initially standby assistance and ultimately modified independent. Toilet assist was independent upon admission and dismissal. Toilet transfer assist was at standby assist level. Ambulatory ability was contact-guard initially at 180 feet and ultimately modified independent at 337 feet with a front-wheeled walker. He was able to climb 3 stairs with contact-guard assistance initially and 12 steps at modified independent level ultimately. He was followed by wound care and Dr. Esposito while on rehabilitation. In addition Dr. Cavanaugh had seen him previously and recommended a BiPAP machine. He has not undergone a sleep study as it is not covered by his insurance. Efforts by case management were undertaken to find him a BiPAP machine which was successful. He is to obtain a unit and was given information in this regard. He was dismissed in improved and stable condition on 04/12/2017 on medications as noted on the dismissal form. He will continue to follow a 3200-calorie consistent carbohydrate diet and monitor his blood sugars four times daily. He was seen by Dr. Michelle Nguyen, infectious disease, on the day of dismissal. She recommended discontinuing Zosyn and clindamycin and fluconazole and starting Augmentin 875 mg twice daily. Prescription was sent for this. In addition, a prescription for Percocet 5 mg tablets #40 was given to the patient. He will remain on gabapentin as well. He is to report for wound closure on April [address] Esposito as an outpatient April 15 at which time he will be taken to surgery as an outpatient. The patient will also be seen by home health for PT, OT, wound management and for supervision with regard to his diabetes and PICC line flushing. PICC line remains in the left arm and there is no evidence of inflammation or infection at the time of dismissal. He was instructed to flush the PICC line once daily at home. Time spent with patient: greater than 35 minutes Resuscitation Status: Full Code Discharge Plan - Med Rec/Dispo Referrals/Follow Up: Michelle Nguyen MD [Physician] - (Dr. Michelle Nguyen on 04/24/17 at 9:00 am for follow-up. [facility] [address] [place] [address] [place] [address] Dave Esposito MD [Physician] - 04/15/17 (Report to admissions at the ED desk on SaturdayApr 15 as directed. NOTHING to eat or drink after midnight Saturday night. Surgery for wound closure SaturdayApr 15.) Ephraim Rodarte MD [Primary Care Provider] - (Dr. Saul Rodarte on 04/16/17 at 3:30 pm for Hosp. follow-up. [facility] [address] [address]) Prescriptions: New Gabapentin [Neurontin] 200 mg PO TID #180 cap Omeprazole [Prilosec] 20 mg PO ACB cap Triamterene/Hctz 37.5/25 Tab [MAXZIDE-25 eqv] 1 tab PO DAILY tab Lisinopril [Prinivil] 20 mg PO DAILY tab Losartan [Cozaar] 50 mg PO DAILY tab Amoxicillin/Potassium Clav [Amox-Clav 875-125 mg Tablet] 875 mg PO BIDBS tab Continue Aspirin Chewable [ASA] 81 mg PO BID Acetaminophen [Tylenol] 325 mg PO Q5H PRN tab PRN Reason: Discomfort Bisacodyl Supp [Dulcolax] 10 mg RECTALLY DAILY PRN suppositor PRN Reason: Constipation Insulin Aspart [NovoLOG] 14 unit SQ WM vial PEG 3350 17gm PACKET [Miralax] 17 gm PO BID packet Nystatin Powder [Mycostatin] 1 applicatio TP BID #1 bottle Ibuprofen [Motrin] 600 mg PO Q6H PRN tab PRN Reason: Pain levothyroxine 50 mcg tablet 50 mcg PO DAILY #30 tab Klor-Con M20 (potassium chloride ER) 20 mEq tablet,(part/cryst) 20 meq PO BID #60 tab Lasix (Furosemide) 80 mg tablet 80 mg PO QAM #30 tab Changed Oxycodone/Acetaminophen 5/325 [Percocet 5/325] 1 tab PO Q6H PRN #40 tab PRN Reason: Pain Discontinued Glucose Oral Gel 40% [Glutose 15] 37.5 gm PO PRN PRN tube PRN Reason: Hypoglycemia Hydrocodone/APAP 5/325 [Rodney 5/325] 1 tab PO Q6H PRN tab PRN Reason: Pain Albuterol Neb (0.083%) [Proventil Neb (0.083%)] 2.5 mg AEROSOL PRN PRN each PRN Reason: Wheezing Clindamycin [Cleocin] 450 mg PO TID cap Enoxaparin Sodium [Lovenox] 40 mg SQ DAILY syringe Piperacillin/Tazobactam [Zosyn] 3.375 gm IV Q6H vial Fluconazole [Diflucan 100 mg Tablet] 400 mg PO DAILY tab blood sugar diagnostic strips See Dose Instructions .ROUTE .MEDSUPPLY #100 each No Action Lantus (insulin glargine) 100 unit/mL SQ 18 unit SQ BID #3 vial - Disposition 01 Discharged Home, Self-Care
--- NOTE | 2017-04-12 12:22 | Letter to Referring Physician ---
Dear Dr. Rodarte, This is a brief note to bring you up-to-date on the status of Franky Estrada and his stay on the acute inpatient rehabilitation unit at [facility]. As you are aware, this patient was admitted to the acute care hospital for Alex's Gangrene and cellulitis as well as diabetes mellitus. The patient was stabilized while on the acute level and admitted to inpatient rehabilitation unit at [facility] on April 03, 2017. While on inpatient rehabilitation, this patient was seen by occupational therapy and physical therapy and improved overall in their functional ability. Medically, he was continued on Zosyn and clindamycin. At the time of dismissal he was seen by Dr. Michelle Nguyen and changed to Augmentin 875 mg twice daily with food for 2 weeks. He was not continued on his Zosyn nor clindamycin at the time of dismissal. He will see Dr. Esposito is an outpatient for hopeful wound closure on 04/15/2017. Please see a copy of the history and physical examination as well as discharge summary enclosed with this letter for further details. I did give him a prescription for Percocet 5 mg tablets #40 with no refills at the time of dismissal. He will also be seen by home health for PT, OT and assisted to manage his wounds, diabetes and for PICC line flushing. PICC line was left in in anticipation of his upcoming surgery this Saturday. In addition, case management was able to identify a low cost BiPAP machine and the patient was given information in this regard. Thank you for allowing us to be involved in this nice patient's care. Please contact me directly should you have any questions regarding their stay on the inpatient rehabilitation unit. Sincerely, Parker Manzo M.D.
--- NOTE | 2017-04-12 12:58 | Wound Care Progress Note ---
Wound Center Progress Note: Pt seen for wound follow up, seen with Anya HARRIS. Pt sitting in chair eating lunch, rates pain 6/10. Wound vac dressing intact running at 125 mm Hg continuous pressure. Hospital vac canister had 100 mL serosanguineous drainage. Wound not visualized at this time. Hospital vac removed and home vac applied. Wound dressing collapsed without leaks, vac running at 150 mm Hg. Education given concerning home vac. Pt will be discharging later this afternoon. Pt will be seeing Dr. Esposito Saturday in OR for possible closure of wound.
== END 2017-04-12 13:00 | disposition home health service (06) | DRG 41 ==
PROVIDERS: ADMIT Internal Medicine; ATTEND Internal Medicine